=== PATIENT | female | born 1980 | race African-American/Black ===

== ENCOUNTER 2019-10-17 19:12 | Emergency (ER) | payer BC, SELFPAY ==
[2019-10-17] VITALS (24 sets, daily range): BP systolic 180–236; BP diastolic 90–132; PULSE 101–120; RESP 12–21; TEMP 36.2–36.6; O2SAT 95–100
--- NOTE | 2019-10-17 19:29 | PC.NURSE ---
Patient states my blood pressure is usually high, I take medicine for it daily, and my next dose is actually due soon. Patient also states my heart rate is also always above 100, its always a little fast.
--- NOTE | 2019-10-17 20:15 | ED.DENTAL ---
HPI - Dental/Oral General Chief complaint: Dental/Oral Stated complaint: tooth pain Time Seen by Provider: 10/17/19 19:33 Source: patient Mode of arrival: ambulatory Limitations: no limitations History of Present Illness HPI Narrative: This patient is a 39 year old female who presents with c/o right lower dental pain x 3 weeks. Patient describes severe pain constantly for 3 weeks. She has been trying orajel, aspirin, naproxen , tylenol without relief. She is unable to see a dentist. She has known hypertension and tachycardia. She has not taken her evening doses of metoprolol and clonidine. MD Complaint: tooth pain Location: Tooth # (32) Onset (ago): week(s) Duration: constant Severity scale (1-10): 10 Relieving factors: nothing Treatment prior to arrival: topical analgesic and oral analgesic Related Data Home Medications Medication Instructions Recorded Confirmed albuterol sulfate [Ventolin HFA] INHALATION 10/17/19 cholecalciferol (vitamin D3) 10/17/19 clonidine HCl 10/17/19 fluticasone propion-salmeterol INHALATION 10/17/19 [Advair Diskus] fluticasone propion-salmeterol INHALATION 10/17/19 [Advair Diskus] furosemide 10/17/19 hydroxyzine pamoate 10/17/19 insulin asp prt-insulin aspart SUBCUT 10/17/19 [Novolog Mix 70-30FlexPen U-100] montelukast mg 10/17/19 omeprazole 10/17/19 potassium chloride meq PO 10/17/19 Allergies Allergy/AdvReac Type Severity Reaction Status Date / Time ARCELIA Inhibitors Allergy Severe Other Verified 10/17/19 19:17 nebivolol Allergy Intermediate Other Verified 10/17/19 19:17 tramadol Allergy Mild Unknown Verified 10/17/19 19:17 sumatriptan Allergy Unknown Unknown Verified 10/17/19 19:17 Review of Systems Review of Systems: All systems reviewed & are unremarkable except as noted in HPI and below Constitutional: Constitutional: Denies chills, Denies fever(s) and Denies weakness ENT: Denies dysphagia, Denies dizziness, Denies nasal congestion and Denies sore throat Cardiovascular: Cardiovascular: Denies chest pain and Reports rapid heart rate Neurologic: Denies headache(s) and Denies focal weakness PMFSH Past Medical History Medical History (Updated 10/18/19 @ 00:00 by Braydon Hughes) Diabetes mellitus Hypertension Surgical History Surgical History (Updated 10/17/19 @ 20:17 by Alexa Knowles MD) H/O tubal ligation Social History Social History Gender identity (if verbalized by the patient): Female Exam Const: General: alert Orientation/consciousness: patient oriented x3 HENMT: Head: normocephalic and atraumatic Ears: hearing grossly normal bilaterally and TM's normal bilaterally Face and sinus: normal facial exam, sinuses nontender and face symmetric Mouth: Yes lip normal, Yes tongue normal, Yes oropharynx normal and Yes moist mucous membranes Teeth and gingiva: other (tenderness at tooth #32 with cavity, no surrounding gum swelling or redness) Cardio: Rhythm: regular rhythm Heart sounds: no murmurs Skin: General skin exam: normal color Rashes: no rashes Neuro: General: patient oriented x3 and moves all extremities Extrem: General: no pedal edema Course Reevaluation(s) Reevaluation #1: Patient has known uncontrolled HTN and tachycardia. BP is 180/90 . I Discussed with her she will need to follow up with dentist. Date: 10/17/19 Time: 23:17 Vital Signs Vital signs: Vital Signs Temperature 97.2 F L 10/17/19 19:14 Pulse Rate 120 H 10/17/19 19:14 Respiratory Rate 18 10/17/19 19:14 Blood Pressure 210/120 H 10/17/19 19:14 Pulse Oximetry 97 10/17/19 19:14 Temperature 97.9 F 10/17/19 23:30 Pulse Rate 101 H 10/17/19 23:30 Respiratory Rate 17 10/17/19 23:30 Blood Pressure 180/90 H 10/17/19 23:30 Pulse Oximetry 99 10/17/19 23:30 Discharge Plan Discharge Clinical Impression: Dental caries, Dentalgia, Hypertension Patient Disposition: Home, Self-Care Condition
[2019-10-17] MEDS: CLONIDINE HCL 0.1 MG TABLET 0.2 MG PO (20:17)
[2019-10-17] MEDS: ONDANSETRON HCL ODT 4 MG TABLET PO (20:17)
[2019-10-17] MEDS: HYDROMORPHONE HCL 1 MG/ML INJ IM (20:18)
[2019-10-17] MEDS: METOPROLOL TARTRATE 50 MG TAB 100 MG PO (21:22)
[2019-10-17] MEDS: AMOXICILLIN/CLAVULANATE K 875-125 MG TAB 1 TABLET PO (23:25)
== END 2019-10-17 23:32 | disposition home or self-care (01) ==
PROVIDERS: Emergency Provider General Practice; PCP Family Medicine
DX: K02.9 Dental caries, unspecified (principal); I10 Essential (primary) hypertension; E11.9 Type 2 diabetes mellitus without complications; Z79.4 Long term (current) use of insulin
CPT/HCPCS: 96372; 99283; A9270; J1170

== ENCOUNTER 2020-03-22 14:35 | Outpatient (CLI) | payer BC, SELFPAY ==
--- NOTE | 2020-03-28 10:56 | WPDPFTINT ---
PFT Interpretation PFT Interpretation: This PFT met all criteria for ATS standards and reproducibility FEV/FVC post bronchodilator 86% FEV1 89% FVC 81% TLC 99% RV 130% RV/TLC 42% DLCO 66% or 17.9 liters when adjusted for alveolar volume but not adjusted for hemoglobin Flow volume loops were normal Impression: No significant obstruction or restriction is present. Some air trapping and mildly decreased diffusion capacity. Clinical correlation is advised.
--- NOTE | 2020-03-28 11:00 | WPDSIXMINUTE ---
Six Minute Walk Six Minute Walk: The patients O2 sats started at 98% and dropped as low as 95% Total walk distance 365.76 meters conclusion: This patient does not qualify for home oxygen therapy.
== END 2020-03-22 14:36 | disposition home or self-care (01) ==
PROVIDERS: PCP Family Medicine; Visit Provider Internal Medicine Pulmonary Disease
DX: J45.909 Unspecified asthma, uncomplicated (principal)
CPT/HCPCS: 94060; 94618; 94726; 94729

== ENCOUNTER → 2023-03-15 11:54 | Outpatient (CLI) | payer BC, MEDICAID, SELFPAY ==
--- NOTE | ~2023-03-15 | CT_ITS ---
EXAMINATION: CT brain wo con DATE: 03/15/2023 12:13 INDICATION: Chronic headache. Change in vision. TECHNIQUE: Computed tomography (CT) of the head was performed without intravenous contrast. Sagittal and coronal reconstructions were performed. The mA was adjusted according to patient size. Iterative reconstruction technique was employed. The dose-length product was 599.57 mGy-cm. COMPARISON: head CT dated 12/12/2015 FINDINGS: No acute intracranial hemorrhage, acute infarction or abnormal extra axial fluid collection. Ventricl es are normal and symmetric. No mass/mass effect. The orbits, paranasal sinuses and mastoid air cells are normal. IMPRESSION: 1. Normal head CT. Reviewed, dictated and finalized at location A. IMPRESSION: 1. Normal head CT.
== END ==
DX: R51.9 Headache, unspecified (principal)
CPT/HCPCS: 70450

== ENCOUNTER → 2023-07-08 14:24 | Outpatient (CLI) | payer BC, MEDICAID, SELFPAY ==
--- NOTE | ~2023-07-08 | MM_ITS ---
EXAMINATION: MM screening elis BI w tommy HISTORY: Screening TECHNIQUE: Craniocaudal and mediolateral oblique 3-D tomosynthesis images were obtained and synthetic 2-D images were generated. CAD analysis was submitted and interpreted. COMPARISON: 10/02/2014 BREAST PARENCHYMAL COMPOSITION: There are scattered areas of fibroglandular density. FINDINGS: There is no evidence of suspicious mass, calcification, or architectural distortion to sugg est malignancy in either breast. There has been no suspicious interval change. IMPRESSION: 1. No mammographic evidence of malignancy. 2. Recommend routine screening mammography in one year. BI-RADS Category 1: Negative Reviewed, dictated and finalized at location A. OPERATOR
== END ==
PROVIDERS: PCP Obstetrics & Gynecology Gynecology; Visit Provider Obstetrics & Gynecology Gynecology
DX: Z12.31 Encounter for screening mammogram for malignant neoplasm of breast (principal)
CPT/HCPCS: 77063; 77067

== ENCOUNTER 2023-09-26 11:20 | Emergency (ER) | payer BC, MEDICAID, SELFPAY ==
[2023-09-26 11:39] VITALS: BP 231/113; PULSE 84; RESP 16; TEMP 36.7; O2SAT 100
[2023-09-26] MEDS: diphenhydrAMINE HCl CAP 25 MG CAPSULE 50 MG PO (12:27)
[2023-09-26] MEDS: HYDROcodone/acetaminophen (*CRX) 5-325 MG TABLET 1 TAB PO (12:27)
[2023-09-26] MEDS: predniSONE 20 MG TABLET 40 MG PO (12:27)
[2023-09-26 12:32] VITALS: BP 229/112; PULSE 86; RESP 20
[2023-09-26 12:37] VITALS: PULSE 122
[2023-09-26] MEDS: LABETALOL HCL 100 MG TABLET 200 MG PO (12:37)
[2023-09-26] MEDS: LOSARTAN POTASSIUM 100 MG TABLET PO (12:38)
[2023-09-26] MEDS: SPIRONOLACTONE 25 MG TABLET PO (12:38)
[2023-09-26 13:13] VITALS: BP 198/111
--- NOTE | 2023-09-26 13:38 | ED.ALLEREA ---
HPI - Allergic Reaction General Chief complaint: Allergic Reaction Stated complaint: allergic reation Time Seen by Provider: 09/26/23 12:06 History of Present Illness HPI narrative: Patient tried a flavored drink she has never tried before and then woke up noticed that her face was completely swollen, especially around her eyes, lips, tongue, she also felt like she was having difficulty swallowing. She had a cataract surgery to her right eye several weeks ago, and then was trying to eat a Twizzler but while pulling on it too hard it pulled back and hit her in the right eye and now she has pain and tearing to the right eye. Blurry vision from the tearing but when she dries her tears she has normal vision. no abdominal pain, nausea vomiting, no rash anywhere else. Related Data Home Medications Medication Instructions Recorded Confirmed albuterol sulfate 90 mcg/actuation inhalation 10/17/19 aerosol inhaler (Ventolin HFA) cholecalciferol (vitamin D3) 1,250 10/17/19 mcg (50,000 unit) capsule clonidine HCl 0.2 mg tablet 10/17/19 fluticasone 100 mcg-salmeterol 50 inhalation 10/17/19 mcg/dose blistr powdr for inhalation (Advair Diskus) fluticasone 250 mcg-salmeterol 50 inhalation 10/17/19 mcg/dose blistr powdr for inhalation (Advair Diskus) furosemide 40 mg tablet 10/17/19 hydroxyzine pamoate 25 mg capsule 10/17/19 insulin aspar prot-insulin aspart subcut 10/17/19 100 unit/mL (70-30) subcutaneous pen (Novolog Mix 70-30FlexPen U-100) montelukast 10 mg tablet mg 10/17/19 omeprazole 40 mg capsule,delayed 10/17/19 release potassium chloride 20 mEq meq PO 10/17/19 tablet,extended release(part/cryst) Allergies Allergy/AdvReac Type Severity Reaction Status Date / Time ARCELIA Inhibitors Allergy Severe Other Verified 10/17/19 19:17 nebivolol Allergy Intermediate Other Verified 10/17/19 19:17 tramadol Allergy Mild Unknown Verified 10/17/19 19:17 sumatriptan Allergy Unknown Unknown Verified 10/17/19 19:17 Review of Systems Review of Systems: All systems reviewed & are unremarkable except as noted in HPI and below PMFSH Past Medical History Medical History (Updated 09/26/23 @ 13:34 by Rachelle Moody MD) Diabetes mellitus Hypertension Surgical History Surgical History (Updated 10/17/19 @ 20:17 by Alexa Knowles MD) H/O tubal ligation Social History Social History Gender identity (if verbalized by the patient): Female Exam Narrative: EXAMINATION OF ORGAN SYSTEMS/BODY AREAS: Constitutional: Vital signs per nursing GENERAL:[No acute distress, non-toxic appearing.] HEAD: Normal with no signs of head trauma. EYES: injected right eye, tearing, visual acuity intact bilaterally ENT: Some slight swelling around eyes, face, lips; no swelling of tongue. Normal voice. LUNGS: Nonlabored breathing. HEART: [Regular rate and rhythm] ABD: [Soft], [nontender to palpation] EXT: Normal range of motion SKIN: [No rashes or lesions.] NEURO: [Alert and oriented x 3. No gross focal sensory or strength deficits.] PSYCH: Normal affect Course Vital Signs Vital signs: Vital Signs Temperature 98.0 F 09/26/23 11:39 Pulse Rate 84 09/26/23 11:39 Respiratory Rate 16 09/26/23 11:39 Blood Pressure 231/113 H 09/26/23 11:39 Pulse Oximetry 100 09/26/23 11:39 Oxygen Delivery Room Air 09/26/23 11:39 Temperature 98.0 F 09/26/23 11:39 Pulse Rate 77 09/26/23 13:39 Respiratory Rate 20 09/26/23 13:39 Blood Pressure 166/107 H 09/26/23 13:39 Pulse Oximetry 98 09/26/23 13:39 Oxygen Delivery Room Air 09/26/23 13:10 MDM - Allergic Reaction MDM Narrative Medical decision making narrative: patient presents with concern for some swelling of her face, and she did also hit herself in the right eye last night with a Twizzler. I was initially concerned for possible complications with the surgery however after patient but to 2 years away she n
[2023-09-26 13:39] VITALS: BP 166/107; PULSE 77; RESP 20; O2SAT 98
== END 2023-09-26 13:46 | disposition home or self-care (01) ==
PROVIDERS: Emergency Provider Emergency Medicine; PCP Internal Medicine
DX: T78.40XA Allergy, unspecified, initial encounter (principal); R22.0 Localized swelling, mass and lump, head; S05.01XA Injury of conjunctiva and corneal abrasion without foreign body, right eye, initial encounter; I10 Essential (primary) hypertension; E11.9 Type 2 diabetes mellitus without complications; Z79.4 Long term (current) use of insulin; X58.XXXA Exposure to other specified factors, initial encounter
CPT/HCPCS: 99283; A9270; J7512

== ENCOUNTER 2023-10-26 13:15 | Outpatient (CLI) | payer BC, MEDICAID, SELFPAY ==
--- NOTE | ~2023-10-26 | CT_ITS ---
EXAMINATION: CT brain wo con DATE: 10/26/2023 13:31 INDICATION: Chronic headache TECHNIQUE: Computed tomography (CT) of the head was performed without intravenous contrast. The mA wa s adjusted according to patient size. Iterative reconstruction technique was employed. Exam dose: 59 9.57 mGy-cm total exam DLP. COMPARISON: 03/15/2023 CT brain, reported normal FINDINGS: No intracranial mass lesion or hemorrhage or cerebrovascular accident, midline shift or mas s effect. Normal ventricular size. No subdural or epidural hematoma. The mastoid air cells and included paranasal sinuses are normally developed and aerated. No fracture or bone destruction of the cranial vault. IMPRESSION: Negative examination Reviewed, dictated and finalized at Location A. Reviewed, dictated and finalized at location B. IMPRESSION: Negative examination
== END 2023-10-26 13:16 ==
PROVIDERS: PCP Internal Medicine; Visit Provider Internal Medicine
DX: G44.89 Other headache syndrome (principal)
CPT/HCPCS: 70450

== ENCOUNTER 2024-04-25 14:46 | Outpatient (CLI) | payer BC, SELFPAY ==
--- NOTE | ~2024-04-25 | US_ITS ---
EXAMINATION: US soft tissue LE DATE: 04/25/2024 15:03 INDICATION: Left lower limb mass. TECHNIQUE: Multiple grayscale and Doppler ultrasound images of the left lower limb were obtained. COMPARISON: None FINDINGS: There is a 3.6 x 0.7 x 4.3 cm subcutaneous mass in the left anterior thigh with echotexture and echogenicity similar to normal subcutaneous fat, consistent with a lipoma. IMPRESSION: 1. 4.3 cm lipoma in left anterior thigh. Reviewed, dictated and finalized at location A. STIAN COUNSELOR
--- NOTE | ~2024-04-25 | XR_ITS ---
EXAMINATION: XR femur LT min 2V DATE: 04/25/2024 15:11 INDICATION: Left thigh pain. TECHNIQUE: 2 views of left femur on 4 radiographs were obtained. COMPARISON: Left knee radiographs 10/18/15 FINDINGS: Alignment is normal. No fracture. There is mild left hip osteoarthritis. There is mild tric ompartmental osteoarthritis of left knee. No knee joint effusion. IMPRESSION: 1. Mild polyarticular osteoarthritis. Reviewed, dictated and finalized at location A. TRICAL TIMING DEVICE CALIBRATOR
== END 2024-04-25 14:47 | disposition home or self-care (01) ==
PROVIDERS: PCP Internal Medicine; Visit Provider Internal Medicine
DX: D17.24 Benign lipomatous neoplasm of skin and subcutaneous tissue of left leg (principal); R22.42 Localized swelling, mass and lump, left lower limb
CPT/HCPCS: 73552; 76882

== ENCOUNTER 2024-06-28 14:33 | Outpatient (CLI) | payer BC, SELFPAY ==
--- NOTE | ~2024-06-28 | XR_ITS ---
CHEST RADIOGRAPH, PA AND LATERAL CLINICAL HISTORY: Preop testing . COMPARISON: 10/19/2018 TECHNIQUE: PA and lateral views of the chest. FINDINGS The cardiomediastinal silhouette is unremarkable. The lungs are clear. Visualized osseous structures and soft tissues are unremarkable. IMPRESSION: No focal infiltrate or effusion. Reviewed, dictated and finalized at location A. IRATORY DIRECTOR
[2024-06-28 15:20] LABS: Basophils Percent Auto 0.7 % (0.2-1.2); Eosinophils Absolute Auto 0.2 K/mm3 (0-0.3); Eosinophils Percent Auto 5.1 % (0-4.4); Hematocrit 39.5 % (37.0-47.0); Hemoglobin 12.9 g/dL (12.0-15.0); Lymphocytes Absolute Auto 1.79 K/mm3 (0.9-3.2); Lymphocytes Percent Auto 43.6 % (18.3-44.2); Mean Corpuscular HGB Conc 32.7 g/dl (32-36); Mean Corpuscular Hemoglobin 28.7 pg (26-34); Mean Platelet Volume 9.6 fl (7.4-10.4); Monocytes Absolute Auto 0.4 K/mm3 (0.1-0.6); Monocytes Percent Auto 8.8 % (2.6-8.5); Neutrophils Absolute Auto 1.7 K/mm3 (1.3-6.7); Neutrophils Percent Auto 41.8 % (45.5-73.1); Platelet Count Result 241 k/mm3 (150-375); Red Blood Count 4.49 M/mm3 (4.2-5.4); White Blood Count 4.1 K/mm3 (4.5-10.0)
[2024-06-28 15:32] LABS: Alanine Aminotransferase 21 U/L (6-35); Albumin Level 3.7 g/dL (3.5-5.1); Alkaline Phosphatase 108 U/L (38-126); Anion Gap 7 mmol/L (4-12); Aspartate Amino Transferase 24 U/L (14-36); Bilirubin,Total 0.4 mg/dL (0.2-1.3); Blood Urea Nitrogen 17 mg/dL (7-17); Calcium 8.5 mg/dL (8.4-10.2); Carbon Dioxide 27 mmol/L (22-30); Chloride 102 mmol/L (98-107); Estimated Glomerular Filt Rate > 60; Glucose 129 mg/dL (65-110); Potassium 4.1 mmol/L (3.4-5.0); Sodium 136 mmol/L (137-145)
[2024-06-28 15:33] LABS: Prothrombin Time 13.3 Seconds (11.1-14.7)
--- OUTSIDE RECORDS SUMMARY | 2024-06-30 02:28 | XMS_ITS | Clinical Summary ---
Author Organization [facility] Address [address] [place] [address] Care Team Providers Care Permit Technician Name Role Phone Maura Zuñiga DO Primary Care Provider [phone] Source Comments [facility],non-owned Affiliates and Associated Physician Practices is amultiple site organization consisting of ambulatory clinics and hospital sitesin [place], [place], [place] and [place]. This disclosure is being madepursuant to the Care Everywhere program and may not contain all information available regarding this patient. Last updated 18.[facility] Allergies Active Allergy Reactions Criticality Noted Date Comments Sumatriptan Other 10/26/2009 Hallucinations Tramadol Hcl Psychiatric 10/26/2009 Pt. Feels like she is hallucinating. Medications * Be aware that medications may not be up to date on this document. Alwaysverify current medications with the patient. Medication Sig Dispensed Refills Start Date End Date Status rx 1 60-1 MG tablet Take 1 Tab by mouth daily. Active buPROPion SR 12hr (WELLBUTRIN SR) 200 MG tablet Take 200 mg by mouth daily after breakfast. Active escitalopram (LEXAPRO) 20 MG tablet Take 20 mg by mouth daily. Active oxycodone-acetam inophen (PERCOCET) 5-325 MG tablet Take 1-2 Tabs by mouth every 4 hours as needed for Pain. 45 0 10/29/2009 Active insulin aspart (NOVOLOG) injection Inject 10 Units subcutaneously daily before breakfast. one month supply 1 10/29/2009 Active insulin aspart (NOVOLOG) injection Inject 8 Units subcutaneously daily before dinner. one month supply 1 10/29/2009 Active insulin NPH (HUMULIN N; NOVOLIN N) injection Inject 12 Units subcutaneously at bedtime. one month supply 0 10/29/2009 Active insulin NPH (HUMULIN N; NOVOLIN N) injection Inject 18 Units subcutaneously daily before breakfast. one month supply 1 10/29/2009 Active labetalol (NORMODYNE; TRANDATE) 200 MG tablet Take 2 Tabs by mouth every 8 hours. one month supply 1 10/29/2009 Active NIFEdipine CR 24hr (ADALAT CC) 60 MG tablet Take 1 Tab by mouth every 12 hours. Take on an empty stomach. 60 1 10/29/2009 Active ibuprofen (MOTRIN) 600 MG tablet Take 1 Tab by mouth every 6 hours as needed for Pain. cramping 60 1 10/29/2009 Active docusate sodium (COLACE) 100 MG capsule Take 1 Cap by mouth 2 times daily as needed for Constipation. 60 1 10/29/2009 Active Active Problems Problem Noted Date Diagnosed Date History of section 10/26/2009 Morbid obesity 10/26/2009 Migraines 10/26/2009 History of delivery, currently 10/26/2009 History of pre-eclampsia in prior , currently 10/26/2009 Hypertension complicating Diabetes mellitus Asthma Anxiety in , antepartum Immunizations Name Administration Dates Next Due TDAP (7yrs+) 10/29/2009 Family History Medical History Relation Name Comments Migraine Father Cancer Maternal Grandmother Hypertension Mother Migraine Mother Asthma Other Heart Failure Paternal Aunt Heart Failure Paternal Grandmother Asthma Sister Hypertension Sister Migraine Sister Relation Name Status Comments Father Maternal Grandmother Mother Other Paternal Aunt Paternal Grandmother Sister Social History Tobacco Use Types Packs/Day Years Used Date Smoking Tobacco: Former Cigarettes Comments:smoked 2 cigs/day Alcohol Use Standard Drinks/Week Comments No 0 (1 standard drink = 0.6 oz pure alcohol) quit when found out about Sex and Gender Information Value Date Recorded Sex Assigned at Not on file Gender Identity Not on file Sexual Orientation Not on file Last Filed Vital Signs Vital Sign Reading Time Taken Comments Blood Pressure 160/97 11/01/2009 2:30 PM CDT Pulse 102 11/01/2009 2:30 PM CDT Temperature 36.6 ??C (97.8 ??F) 10/29/2009 8:00 AM CD T Respiratory Rate 20 11/01/2009 2:30 PM CDT Oxygen Saturation 97% 10/26/2009 12:16 PM CDT Inhaled Oxygen Concentration - - Weight 129.7 kg (286 lb) 11/01/2009 2:30 PM CDT Height 167.6 cm (5' 6 ) 11/01/2009 2:30 PM CDT Body Mass Index 46.16 11/01/2009 2:30 PM CDT Plan of Treatment Health Maintenance Due Date Last Done Comments LIPID TESTING 1979 MAMMOGRAM 1979 PAP SMEAR 1979 HIV SCREENING 1994 HEPATITIS C SCREENING 07/01/1997 HEPATITIS B VACCINE (1 of 3 - 19+ 3-dose series) 1998 PNEUMOCOCCAL VACCINE (1 of 2 - PCV) 1998 DTAP/TDAP/TD VACCINES (2 - T d or Tdap) 10/30/2019 10/29/2009 COVID-19 VACCINE ( - 2023-2 5 season) 2024 INFLUENZA VACCINE (#1) 2024 DEPRESSION SCREENING 06/07/2024 ZOSTER VACCINE (1 of 2) 2029 HIB VACCINE Aged Out No longer eligi ble based on patient's age to complete this topic HPV VACCINE Aged Out No longer eligi ble based on patient's age to complete this topic MENINGOCOCCAL (Group B) VACCINE Aged Out No longer eligible based on patient's age to complete this topic MENINGOCOCCAL VACCINE Aged Out No germaine aretha eligible based on patient's age to complete this topic Advance Directives * Full Code (Latest Code Status on File) Date Activated Date Inactivated Comments 10/26/2009 4:25 AM 10/30/2009 1:38 AM Care Teams Permit Technician Relationship Specialty Start Date End Date Maura Zuñiga DO [address] [facility] [place] [address] PCP - General 11/01/09
--- OUTSIDE RECORDS SUMMARY | 2024-06-30 02:28 | XMS_ITS | Referral Summary ---
Author Organization [facility] Address [address] [place] [address] Care Team Providers Care Official Court Reporter Name Role Phone Maura Zuñiga DO Primary Care Provider [phone] Source Comments [facility],non-owned Affiliates and Associated Physician Practices is amultiple site organization consisting of ambulatory clinics and hospital sitesin [place], [place], [place] and [place]. This disclosure is being madepursuant to the Care Everywhere program and may not contain all information available regarding this patient. Last updated 18.[facility] Allergies Active Allergy Reactions Criticality Noted Date [...] Administration Dates Next Due TDAP (7yrs+) 10/29/2009 Social History Tobacco Use Types Packs/Day Years [...] 11/01/2009 2:30 PM CDT Plan of Treatment Not on file Advance Directives * Full Code (Latest Code Status on File) Date Activated Date Inactivated Comments 10/26/2009 4:25 AM 10/30/2009 1:[address] Reporter Relationship Specialty Start Date End Date Maura Zuñiga DO [address] [place] [address] PCP - General 11/01/09
--- OUTSIDE RECORDS SUMMARY | 2024-06-30 02:29 | XMS_ITS | Clinical Summary ---
Author Organization [facility] Address [address] [address] Care Team Providers Care Mechanical Designer Name Role Phone Jayne Llanos MD Primary Care Provider [phone] Social History Tobacco Use Types Packs/Day Years Used Date Smoking Tobacco: Never Assessed Comments Unknown Sex and Gender Information Value Date Recorded Sex Assigned at Not on file Legal Sex Female 2:51 PM EDT Gender Identity Not on file Sexual Orientation Not on file Plan of Treatment Health Maintenance Due Date Last Done Comments Pneumococcal Vaccine: Pediat rics (0 to 5 Years) and At-Risk Patients (6 to 64 Years) (1 of 2 - PCV) 1985 Hepatitis B Vaccine (1 of 3 - 19+ 3-dose series) 1998 Diabetes: Hemoglobin A1C 06/05/2021 Diabetes: Ophthalmology Exam 06/05/2021 Diabetes: Pedal Pulse Checked 06/05/2021 Diabetes: Sensory Foot Exam 06/05/2021 Diabetes: Visual Foot Exam 06/05/2021 Influenza Vaccine (#1) 2024 03/26/2021, 2018 Insurance [facility] Care Teams Mechanical Designer Relationship Specialty Start Date End Date Jayne Llanos MD [address] [place] [address] PCP - General Endocrinology 08/04/21
--- OUTSIDE RECORDS SUMMARY | 2024-06-30 02:29 | XMS_ITS | Clinical Summary ---
Author Organization [facility] Address [facility] [facility] [place] [address] [place] [address] Care Team Providers Care Health Services Director Name Role Phone Simón Mcdonough MD Primary Care Provider + [phone] Allergies Active Allergy Reactions Criticality Noted Date Comments Balta Inhibitors Angioedema High 12/19/2020 Irbesartan Shortness of Breath High 12/19/2020 Chest pain Nebivolol Other (see comment) 12/19/2020 Hair loss Sumatriptan Hallucinations,Other (see comment) Low 10/26/2009 Hallucinations Tramadol Hallucinations Low 10/26/2009 Pt. Feels like she is hallucinating. Medications ALPRAZolam (XANAX) 0.5 MG tablet Take 1 tablet (0.5 mg total) by mouth 2 (two) times daily as needed for Anxiety. Active DULoxetine (CYMBALTA) 60 MG capsule Take 1 capsule (60 mg total) by mouth daily. Active FLUoxetine (PROZAC) 20 MG capsule Take 1 capsule (20 mg total) by mouth daily. Total dose = 60 mg daily Active FLUoxetine (PROZAC) 40 MG capsule Take 1 capsule (40 mg total) by mouth daily. Total dose = 60 mg daily Active losartan-hydro CHLOROthiazide (HYZAAR) 100-25 MG tablet Take 1 tablet by mouth daily. Active NIFEdipine ER (ADALAT CC) 60 MG 24 hr tablet Take 1 tablet (60 mg total) by mouth nightly at bedtime. Activ e spironolactone (ALDACTONE) 25 MG tablet Take 1 tablet (25 mg total) by mouth daily. Active labetalol (NORMODYNE) 200 MG tablet Take 1 tablet (200 mg total) by mouth 2 (two) times daily. Active VENTOLIN HFA 108 (90 Base) MCG/ACT inhaler Inhale 2 puffs into the lungs every 4 (four) hours as needed for Shortness of breath. Active ALPRAZolam (XANAX) 1 MG tablet Take 1 tablet (1 mg total) by mouth 2 (two) times a day. Active empagliflozin (JARDIANCE) 25 MG tablet Take 1 tablet (25 mg total) by mouth daily. Active aspirin EC (ECOTRIN) 81 MG tablet Take 1 tablet (81 mg total) by mouth daily. Active hydrOXYzine (ATARAX) 25 MG tablet Take 1 tablet (25 mg total) by mouth every 6 (six) hours as needed (hives). Active vitamin D2, ergocalciferol , (DRISDOL) 1.25 mg capsule Take 1 capsule (1.25 mg total) by mouth every 7 days. On Wednesdays Active atorvastatin (LIPITOR) 80 MG tablet Take 1 tablet (80 mg total) by mouth nightly at bedtime. 30 tablet 2 07/16/19 24 Active lidocaine 4 % patch Place 1 patch onto the skin daily. Remove & Discard patch within 12 hours or as directed by 30 patch 07/16/19 24 Active MOBIC 15 MG tablet Take 1 tablet (15 mg total) by mouth daily. 02/17/20 24 Active traMADol (ULTRAM) 50 MG tablet TAKE 1 TABLET BY MOUTH EVERY 4 TO 6 HOURS NEEDED. TAKE AT HOME FIRST BEFORE DRIVING ON 7 . 03/15/20 24 Active gabapentin (NEURONTIN) 100 MG capsule Take 1 capsule (100 mg total) by mouth 2 (two) times a day. 03/30/20 24 Active BASAGLAR KWIKPEN 100 UNIT/ML injection (PEN) Inject into the skin nightly at bedtime. 02/25/20 24 Active insulin lispro, 1 Unit Dial, (HUMALOG) 100 UNIT/ML injection (PEN) INJECT 15 UNITS SUBCUTANEOUSLY THREE TIMES DAILY 02/29/20 24 Active EPINEPHrine 0.3 MG/0.3ML injection INJECT 0.3MG INTRAMUSCULARLY EVERY 5 TO 15 MINUTES NEEDED FOR ANAPHYLAXIS; DO NOT EXCEED 3 DOSES PER EPISODE. 09/26/19 24 Active dorzolamide (TRUSOPT) 2 % ophthalmic solution instill 1 drop into right eye twice daily 12/19/19 24 Active cyclobenzaprin e (FLEXERIL) 10 MG tablet Take 1 tablet (10 mg total) by mouth 2 (two) times daily as needed for Muscle Spasms. 02/17/20 Active Active Problems Problem Noted Date Diagnosed Date Neuropathy 03/30/2024 Diabetes mellitus ([facility]) 10/20/2023 Hypertension complicating ([facility]) TIA (transient ischemic attack) 07/19/2023 Hypertension 07/19/2023 Hypertensive urgency 07/15/2023 Anxiety and depression 11/24/2021 Morbid obesity with body mas s index of 40.0-49.9 ([facility]) 11/24/2021 TANNA (obstructive sleep apnea) 11/24/2021 Other hyperlipidemia 11/24/2021 Resolved Problems Problem Noted Date Diagnosed Date Resolved Date CVA (cerebral vascular accid ent) ([facility]) 07/14/2023 07/15/2023 Encounters Date Type Department Care Team Description 04/03/2024 10:00 AM CDT Office Visit [facility] on [address] [address] Cyndi Bearden MD Follow Up (3 month ) 04/03/2024 Travel 04/03/2024 Orders Only [facility] [address] [address] [place] CMA from Last 3 Months Immunizations Name Administration Dates Next Due Influenza Adult (Generic) 03/27/2023,03/26/2021 Tdap (Generic) 10/29/2009 Family History Medical History Relation Comments Hypertension Mother Transient ischemic attack Mother Hypertension Sister Relation Status Comments Mother Alive Sister Alive Social History Tobacco Use Types Packs/Day Years Used Date Smoking Tobacco: Former Cigarettes Q uit: 07/14/2023 Smokeless Tobacco: Never Comments:Was smoking 2-3 cig arettes daily Alcohol Use Standard Drinks/Week Comments Never 0 (1 standard drink = 0.6 oz pur e alcohol) [facility] Utilities Answer Date Recorded In the past 12 months has [employer], gas, oil, or water company threatened to shut off services in your home? No 07/15/2023 Humiliation, Afraid, Rape, and Kick questionnair e Answer Date Recorded Within the last year, have y ou been afraid of your partner or ex-partner? No 07/15/2023 Within the last year, have y ou been humiliated or emotionally abused in other ways by your partner or ex-partner? No Within the last year, have y ou been kicked, hit, slapped, or otherwise physically hurt by your partner or ex-partner? No 07/15/2023 Within the last year, have y ou been raped or forced to have any kind of sexual activity by your partner or ex-partner? No 07/15/2023 Social Connection and Isolat ion Panel [NHANES] Answer Date Recorded In a typical week, how many times do you talk on the phone with family, friends, or neighbors? More than three times a week 07/15/2023 How often do you get togethe r with friends or relatives? More than three times a week 07/15/2023 How often do you attend [facility] or restorationist services? More than 4 times per year 07/15/2023 Do you belong to any clubs o r organizations such as jainism groups, unions, fraternal or athletic groups, or school groups? No 07/15/2023 How often do you attend meet ings of the clubs or organizations you belong to? Never 07/15/2023 Are you , , di vorced, , never , or living with a partner? Living with partner 07/15/2023 AUDIT-C Answer Date Recorded Q1: How often do you have a drink containing alc ohol? Monthly or less 07/15/2023 Q2: How many drinks containi ng alcohol do you have on a typical day when you are drinking? 1 or 2 07/15/2023 Q3: How often do you have si x or more drinks on one occasion? Never 07/15/2023 Overall Financial Resource Strain (CARDIA) Answe r Date Recorded How hard is it for you to pa y for the very basics like food, housing, medical care, and heating? Not very hard 07/15/2023 PHQ-2 Answer Date Recorded Patient Health Questionnaire-2 Score 0 07/15/2023 [facility] - Occupational Stress Questionnaire Answer Date Recorded Do you feel stress - tense, restless, nervous, or anxious, or unable to sleep at night because your mind is troubled all the time - these days? Not at all 07/15/2023 Exercise Vital Sign Answer Date Recorde d On average, how many days pe r week do you engage in moderate to strenuous exercise (like a brisk walk)? 4 days 07/15/2023 On average, how many minutes do you engage in exercise at this level? 30 min 07/15/2023 Hunger Vital Sign Answer Date Recorded Within the past 12 months, y ou worried that your food would run out before you got the money to buy more. Never true 07/15/19 24 Within the past 12 months, t he food you bought just didn't last and you didn't have money to get more. Never true 07/15/2023 PRAPARE - Transportation Answer Date Re corded In the past 12 months, has l ack of transportation kept you from medical appointments or from getting medications? No 01/2024 In the past 12 months, has l ack of transportation kept you from meetings, work, or from getting things needed for daily living? No 07/15/2023 Housing Stability Vital Sign Answer Naveen e Recorded In the last 12 months, was t here a time when you were not able to pay the mortgage or rent on time? No 07/15/2023 In the last 12 months, how many places have you lived? 1 07/15/2023 In the last 12 months, was t here a time when you did not have a steady place to sleep or slept in a alf (including now)? No 07/15/2023 Comments Unknown Sex and Gender Information Value Date Recorded Sex Assigned at Not on file Legal Sex Female 4:52 PM CDT Gender Identity Not on file Sexual Orientation Not on file Last Filed Vital Signs Vital Sign Reading Time Taken Comments Blood Pressure 98/68 04/03/2024 10:03 AM CDT Pulse 75 04/03/2024 10:03 AM CDT Temperature 36.3 ??C (97.3 ??F) 07/16/2023 5:40 AM CS T Respiratory Rate 16 07/16/2023 8:35 AM PATENT PARALEGAL Oxygen Saturation 97% 04/03/2024 10:03 AM CDT Inhaled Oxygen Concentration - - Weight 102.1 kg (225 lb) 04/03/2024 10:03 AM CDT Height 167.6 cm (5' 6 ) 04/03/2024 10:03 AM CDT Body Mass Index 36.32 04/03/2024 10:03 AM CDT Plan of Treatment Upcoming Encounters Date Type Department Care Team (Late st Contact Info) Description 10/02/2024 10:30 AM CDT Office Visit [facility] [address] [place] [address] Cyndi Bearden MD [facility] [address] [place], [place] [id number] Health Maintenance Due Date Last Done Comments Cervical Cancer Screening Pa p Smear (Age 30 to 64) Every 3 Years 1979 Kidney Health Evaluation 1979 Annual Physical 1982 Pneumococcal Vaccine: Pediatrics (0 to 5 Years) and At-Risk Patients (6 to 64 Years) (1 of 2 - PCV) 1985 Diabetes: Retinopathy Eye Exam 1997 Hepatitis C 1997 Hepatitis B Vaccines (1 of 3 - 19+ 3-dose series) 1998 Cervical Cancer Screening Pa p with HPV Testing (Age 30 to 64) Every 5 Years 2009 Cervical Cancer Screening wi th HPV 2009 Mammogram Screening 2019 DTaP, Tdap and Td Vaccines ( 2 - Td or Tdap) 10/30/2019 10/29/2009 COVID-19 Vaccine (2023-2 5 season) 2024 05/15/2021, 09/10/2020 Influenza Adult (#1) 2024 03/27/2023, 03/26/2021 Hemoglobin A1C 05/25/2024 02/24/2024, 07/14/2023 Lipid Panel 02/23/2025 02/24/2024, 07/14/2023 HPV Vaccines Aged Out No longer eligi ble based on patient's age to complete this topic Meningococcal Vaccine Aged Out No germaine aretha eligible based on patient's age to complete this topic RSV Immunizations Under 20 Months Aged Out No longer eligible b ased on patient's age to complete this topic Goals Goal Patient Goal Type Associated Problems Recent Progress Patient-Stated? Author Patient will return to prior living situation and remain independent in ADLs upon discharge from hospital Lifestyle Jayla Allen, [employer] Procedures Procedure Name Priority Date/Time Associated Diagnosis Comments LIPID PANEL Routine 02/24/2024 HEMOGLOBIN, GLYCOSYLATED Routine 02/24/2024 from Last 3 Months or Most Recently Relevant to Health Maintenance Results * HEMOGLOBIN, GLYCOSYLATED (02/24/2024) HGB A1C 11.5 % us Default History Genericprovider LABORATORY Final Result * LIPID PANEL (02/24/2024) CHOLESTEROL 161 TRIGLYCERIDES 80 HDL 72 LDL (CALCULATED) 73 NON HDL CHOLESTEROL 89 us Default History Genericprovider LABORATORY Final Result from Last 3 Months or Most Recently Relevant to Health Maintenance Insurance Advance Directives * Full Code (Latest Code Status on File) Date Activated Date Inactivated Comments 07/14/2023 10:44 PM 07/16/2023 1:11 PM Care Teams Health Services Director Relationship Specialty Start Date End Date Simón Mcdonough MD [facility] - General 11/15/14
--- OUTSIDE RECORDS SUMMARY | 2024-06-30 02:29 | XMS_ITS | Patient Health Summary ---
Author Organization [facility] Address [address] [place] [address] Care Team Providers Care Production Line Worker Name Role Phone Maura uZñiga DO Primary Care Provider [phone] Note from [facility],non-owned Affiliates and Associated Physician Practices is amultiple site organization consisting of ambulatory clinics and hospital sitesin [place], [place], [place] and [place]. This disclosure is being madepursuant to the Care Everywhere program and may not contain all information available regarding this patient. Last updated 18.[facility] Allergies * Sumatriptan(Other) * Tramadol Hcl(Psychiatric) Medications * Be aware that medications may not be up to date on this document. Alwaysverify current medications with the patient. * rx 1 60-1 MG tablet Take 1 Tab by mouth daily. * buPROPion SR 12hr (WELLBUTRIN SR) 200 MG tablet Take 200 mg by mouth daily after breakfast. * escitalopram (LEXAPRO) 20 MG tablet Take 20 mg by mouth daily. * oxycodone-acetaminophen (PERCOCET) 5-325 MG tablet(Started 10/29/2009) Take 1-2 Tabs by mouth every 4 hours as needed for Pain. * insulin aspart (NOVOLOG) injection(Started 10/29/2009) Inject 10 Units subcutaneously daily before breakfast. 1 refill left * insulin aspart (NOVOLOG) injection(Started 10/29/2009) Inject 8 Units subcutaneously daily before dinner. 1 refill left * insulin NPH (HUMULIN N; NOVOLIN N) injection(Started 10/29/2009) Inject 12 Units subcutaneously at bedtime. * insulin NPH (HUMULIN N; NOVOLIN N) injection(Started 10/29/2009) Inject 18 Units subcutaneously daily before breakfast. 1 refill left * labetalol (NORMODYNE; TRANDATE) 200 MG tablet(Started 10/29/2009) Take 2 Tabs by mouth every 8 hours. 1 refill left * NIFEdipine CR 24hr (ADALAT CC) 60 MG tablet(Started 10/29/2009) Take 1 Tab by mouth every 12 hours. Take on an empty stomach. 1 refill left * ibuprofen (MOTRIN) 600 MG tablet(Started 10/29/2009) Take 1 Tab by mouth every 6 hours as needed for Pain. cramping 1 refill left * docusate sodium (COLACE) 100 MG capsule(Started 10/29/2009) Take 1 Cap by mouth 2 times daily as needed for Constipation. 1 refill left Active Problems Problem Noted Date Diagnosed Date History of section 10/26/2009 Morbid obesity 10/26/2009 Migraines 10/26/2009 History of delivery, currently 10/26/2009 History of pre-eclampsia in prior , currently 10/26/2009 Hypertension complicating Diabetes mellitus Asthma Anxiety in , antepartum Immunizations * TDAP (7yrs+)(Given 10/29/2009) Social History Tobacco Use Types Packs/Day Years [...] Mass Index 46.16 11/01/2009 2:30 PM CDT Procedures * CULTURE URINE(Performed 10/12/2013) * LAB RESULTS ORDER(Performed 11/01/2009) * IMAGING/RADIOLOGY/XRAY RESULTS ORDER(Performed 11/01/2009) * URINALYSIS REFLEX TO MICROSCOPIC NO CULTURE(Performed 11/01/2009) Performed for Rout Postpart Follow-Up * CULTURE URINE(Performed 11/01/2009) Performed for Rout Postpart Follow-Up * COMPREHENSIVE METABOLIC PANEL(Performed 11/01/2009) Performed for Rout Postpart Follow-Up * CBC W AUTO DIFFERENTIAL(Performed 11/01/2009) Performed for Rout Postpart Follow-Up * GLUCOSE - POINT OF CARE(Performed 11/01/2009) Performed for Rout Postpart Follow-Up * IMAGING/RADIOLOGY/XRAY RESULTS ORDER(Performed 10/29/2009) * CBC W AUTO DIFFERENTIAL(Performed 10/27/2009) Performed for Unspecified High-Risk (HCC) * BLOOD GASES CORD MALIKA(Performed 10/26/2009) Performed for Unspecified High-Risk (HCC) * BLOOD GASES CORD ARTERIAL(Performed 10/26/2009) Performed for Unspecified High-Risk (HCC) * BLOOD GASES CORD MALIKA(Performed 10/26/2009) Performed for Unspecified High-Risk (HCC) * BLOOD GASES CORD ARTERIAL(Performed 10/26/2009) Performed for Unspecified High-Risk (HCC) * GROSS + MICRO EXAM(Performed 10/26/2009) * GROSS + MICRO EXAM(Performed 10/26/2009) Performed for Unspecified High-Risk (HCC) * BLOOD TYPE VERIFICATION(Performed 10/26/2009) Performed for Unspecified High-Risk (HCC) * TYPE + SCREEN PANEL(Performed 10/26/2009) Performed for Unspecified High-Risk (HCC) * URIC ACID BLOOD(Performed 10/26/2009) Performed for Unspecified High-Risk (HCC) * LDH BLOOD(Performed 10/26/2009) Performed for Unspecified High-Risk (HCC) * COMPREHENSIVE METABOLIC PANEL(Performed 10/26/2009) Performed for Unspecified High-Risk (HCC) * CBC W AUTO DIFFERENTIAL(Performed 10/26/2009) Performed for Unspecified High-Risk (HCC) * DRUG SCREEN URINE TRIAGE PANEL(Performed 10/26/2009) Performed for Unspecified High-Risk (HCC) * URINALYSIS REFLEX TO MICROSCOPIC NO CULTURE(Performed 10/26/2009) Performed for Unspecified High-Risk (HCC) * URINALYSIS OBSTETRICS - POINT OF CARE(Performed 10/26/2009) * IMAGING/RADIOLOGY/XRAY RESULTS ORDER(Performed 10/18/2009) * SONOGRAM - COMPLETE(Performed 10/10/2009) * IMAGING/RADIOLOGY/XRAY RESULTS ORDER(Performed 10/03/2009) * SONOGRAM - COMPLETE(Performed 09/12/2009) Performed for Twins, Check Growth, Antepartum Ultrasound Results * CULTURE URINE (10/12/2013 7:55 PM CDT) Only the most recent of2 resultswithin the time period is included. Culture Urine STAPHYLOCOCCUS COAGULASE NEGATIVE [facility] Comment:10,000 CFU/ML Staphy lococcus Coagulase Negative Urine specimen (specimen) URINE SPECIMEN OBTAINED BY CLEAN CATCH PROCEDURE / Unknown 10/12/2013 7:55 PM CDT 10/13/2013 9:24 PM CDT Narrative [facility] - 10/15/2013 10:02 AM CDT AndersonSpecimen#[id number] Akhil Loc/Rm/Bed: EXPCARE G// CLN CATCH U Historical Provider MD LAB - MICROBIOLOG Y ORDERABLES [address] [phone] * LAB RESULTS ORDER (11/01/2009 7:42 PM CDT) Narrative 11/01/2009 7:42 PM CDT Ordered by an unspecified provider. Transcriptions Document, Scanned - 10/26/2009 12:00 AM CDT Scanned Document LAB - THERAPEUTIC DR SCHMIDT MONITORING ORDERABLES * IMAGING/RADIOLOGY/XRAY RESULTS ORDER (11/01/2009 7:42 PM CDT) Only the most recent of4 resultswithin the time period is included. Anatomical Region Laterality Modality Other Narrative 11/01/2009 7:42 PM CDT Ordered by an unspecified provider. Transcriptions Document, Scanned - 10/26/2009 12:00 AM CDT Scanned Document IMAGING * (ABNORMAL) URINALYSIS ROUTINE AUTO (11/01/2009 4:40 PM CDT) Only the most recent of2 resultswithin the time period is included. Source Clean Catch [facility] Color UA Yellow [facility] Character UA Clear [facility] Glucose UA >=1000(AA) NEGATIVE mg/dl [facility] Bilirubin UA NEGATIVE NEGATIVE [facility] Ketone UA NEGATIVE NEGATIVE mg/dl [facility] Specific [place] UA 1.020 1.003 - 1.030 [facility] Blood UA MODERATE(H) NEGATIVE [facility] pH UA 6.5 5.0 - 9.0 [facility] Protein UA >=300(H) NEGATIVE-TR [place]EL[place] mg/dl [facility] Urobilinogen UA 0.2 0.2 - 1.0 Matias Units/dl [facility] Nitrite UA NEGATIVE NEGATIVE [facility] Leukocyte UA NEGATIVE NEGATIVE [facility] Reducing Substances UA >= 2.0(H) Negative gm/dl [facility] WBC UA 3-6(H) 0 - 2 HPF [facility] RBC UA 4-10(H) None Seen HPF [facility] Epithelial Cell UA Greater than 10 Squamous None Seen HPF [facility] Bacteria UA Few(H) None Seen [facility] URINE SPECIMEN OBTAINED BY CLEAN CATCH PROCEDURE / Unknown 11/01/2009 4:40 PM CDT 11/01/2009 5:03 PM CDT Dominique Cerrato MD LAB - URINALYSIS ORD ERABLES Performing Organization Address City/State/[facility] Co de Phone Number [facility] [address] [place] [address] * (ABNORMAL) CBC W AUTO DIFFERENTIAL (11/01/2009 4:35 PM CDT) Only the most recent of3 resultswithin the time period is included. WBC 5.8(DE) 4.0 - 10.0 K/CUMM [facility] RBC 4.52 3.80 - 5.80 M/CUMM [facility] Hemoglobin 12.6 12.0 - 16.0 gm/dl [facility] Hematocrit 37.9 37.0 - 47.0 % [facility] MCV 83.8(DE) 80.0 - 100.0 fl [facility] MCH 27.9 26.0 - 34.0 pg [facility] MCHC 33.2 31.0 - 37.0 gm/dl [facility] Platelet Count 215(DE) 150 - 400 K/CUMM [facility] RDW 13.8 11.5 - 14.5 % [facility] Granulocytes % 52.7(DE) 50 - 70 % [facility] Lymphocytes % 36.3(DE) 20 - 40 % [facility] Monocytes % 8.3 0 - 12 % [facility] Eosinophils % 1.9(DE) 0 - 5 % [facility] Basophils % 0.5(DE) 0 - 2 % [facility] Granulocytes Absolute 3.02 2.00 - 7.00 x1000/cmm [facility] Lymphocytes Absolute 2.09 0.80 - 4.00 x1000/cmm [facility] Monocytes Absolute 0.48 0.00 - 1.20 x1000/cmm [facility] Eosinophils Absolute 0.11 0.00 - 0.50 x1000/cmm [facility] Basophils Absolute 0.03 0.00 - 0.20 x1000/cmm [facility] BLOOD SPECIMEN / Unknown 11/01/2009 4:35 PM CDT 11/01/2009 5:07 PM CDT Dominique Cerrato MD LAB - HEMATOLOGY ORD ERABLES Performing Organization Address City/State/[facility] Co de Phone Number [facility] [address] [place] [address] * (ABNORMAL) COMPREHENSIVE METABOLIC PANEL (11/01/2009 4:35 PM CDT) Only the most recent of2 resultswithin the time period is included. Sodium 138(DE) 137 - 145 mmol/L [facility] Potassium 3.8 3.6 - 5.0 mmol/L [facility] Chloride 104 98 - 107 mmol/L [facility] BUN 8 7 - 17 mg/dl [facility] Creatinine 0.76 0.52 - 1.04 mg/dl [facility] Glucose 224(H) 65 - 105 mg/dl [facility] Calcium 8.8(DE) 8.4 - 10.2 mg/dl [facility] Alkaline Phosphatase 149(H) 38 - 126 U/L [facility] AST 21 8 - 39 U/L [facility] Bilirubin Total < .1(L) 0.2 - 1.3 mg/dl [facility] Protein Total 6.1(L) 6.3 - 8.2 gm/dl [facility] Albumin 2.8(L) 3.9 - 5.0 gm/dl [facility] CO2 28 22 - 30 mmol/L [facility] ALT 19 9 - 52 U/L [facility] eGFR by MDRD 108 >60 mL/min/1.7 3m2 [facility] Comment eGFR [facility] Comment: ? The eGFR does not apply to patients who are younger than ? 18 or older than 70. BLOOD SPECIMEN / Unknown 11/01/2009 4:35 PM CDT 11/01/2009 5:07 PM CDT Dominique Cerrato MD LAB - CHEMISTRY KAYCE STOVALL Performing Organization Address City/[facility]/ZIP Co de Phone Number [facility] [address] [place] [phone] * (ABNORMAL) GLUCOSE - POINT OF CARE (11/01/2009 4:08 PM CDT) Glucose WB/POC 270(H) 70 - 110 mg/dl [facility] BLOOD SPECIMEN / Unknown 11/01/2009 4:08 PM CDT 11/01/2009 4:24 PM CDT Valeria Ring MD LAB - POINT OF CARE ORDERABLES Performing Organization Address [facility] Co de Phone Number [facility] [address] [place] [phone] * (ABNORMAL) BLOOD GASES CORD VENOUS (10/26/2009 10:30 AM CDT) Only the most recent of2 resultswithin the time period is included. pH Cord Venous 7.220 7.18 - 7.33 [facility] pCO2 Cord Venous 67.3(H) 43 - 55 mm Hg [facility] pO2 Cord Venous 22.2 22 - 33 mm Hg [facility] Base Excess Cord Venous -2.5 -2.0 - 2.0 [facility] HCO3 Cord Venous 26.9 mmol/L [facility] Panic Value(s) Read Back By DR Wang @1030 [facility] Comment RT Baby B [facility] CORD BLOOD SPECIMEN / Unknown 10/26/2009 10:30 AM CDT 10/26/2009 10:59 AM CDT Bebeto Acosta MD LAB - BLOOD GASES OR DERABLES Performing Organization Address [facility] de Phone Number [facility] [address] [phone] * (ABNORMAL) BLOOD GASES CORD ARTERIAL (10/26/2009 10:30 AM CDT) Only the most recent of2 resultswithin the time period is included. Pathologist [facility] pH Cord Arterial 7.250 7.16 - 7.30 [facility] pCO2 Cord Arterial 64.5(H) 40 - 55 mm Hg [facility] pO2 Cord Arterial 28.6(H) 12 - 20 mm Hg [facility] HCO3 Cord Arterial 27.7 mmol/L [facility] Base Excess Cord Arterial -1.2 -2.0 - 2.0 [facility] Panic Value(s) Read Back By DR Wang@10 30 [facility] Comment RT Baby B [facility] CORD BLOOD SPECIMEN / Unknown 10/26/2009 10:30 AM CDT 10/26/2009 10:57 AM CDT Bebeto Acosta MD LAB - BLOOD GASES OR DERABLES Performing Organization Address [facility] de Phone Number [facility] [address] [place], [place] [id number] * GROSS + MICRO EXAM (10/26/2009 9:40 AM CDT) Only the most recent of2 resultswithin the time period is included. Pathologist [facility] Result CASE NUMBER [id number] Comment: ORDERING PHYSICIAN ??JEAN PAUL BELTRÁN SPECIMEN TYPE ?Placenta 3rd Trimes Date ? 10/28/2009 Physician ?Sarath Acosta Description ? The specimen is received in a formalin filled container labeled with the patient's name and placenta . ??It consists of a 630 gram twin discoid placenta with two umbilical cords and attached membranes. ??The umbilical cord on one of the discs has one clamp attached to it and will be arbitrarily designated as placenta A. ??Placenta A disc measures 14 x 12.5 x 2 cm. ??The cord measures 10 cm. in length 1 cm. in diameter. ??It inserts eccentrically 4.5 cm. from the closest placental edge and has three blood vessels. Placenta B measures 13.5 x 13 x 3 cm. ??The cord has two clamps attached to it and measures 4 cm. in length and up to 1 cm. in diameter. ??The cord has three blood vessels. ??The surface of cord A is bluish to artis felix. ??The maternal surface displays intact cotyledons. ??The membranes are semitranslucent, shiny, wrinkled and rupture approximately 6 cm. from the closest placental edge. Bit Sharpener sections from placenta A are submitted in cassettes A through C. The umbilical cord of placenta B also has three blood vessels. ??The membranes are semitranslucent, shiny, wrinkled and rupture approximately 12 cm. from the closest placental edge. ??The surface is bluish artis. ??The maternal surface displays intact cotyledons. ??The cut surface reveals no interparenchymal gross abnormalities. ??The dividing membrane is present between the two placentas. ??Bit Sharpener sections from this placenta are submitted in cassettes D through F. ??Bit Sharpener sections from the dividing membrane are submitted in cassette G. [place]/bk Microscopic Exam ? Sections of the twin placenta show a three vessel umbilical cord with no evidence of funisitis or thrombosis. The chorioamniotic membranes do not show any evidence of inflammation. The chorionic plate is unremarkable. The chorionic villi are small to medium size with features of accelerated maturation. Syncytial knots and focal areas of dystrophic calcification are identified. There is no evidence of villitis or infarction. The decidua basalis is unremarkable. [place]/na GM Diagnosis ? I. ?Fused twin placenta ?(630 grams) II. ?? Placenta A -- ?Three vessel umbilical cord -- ?No evidence of funisitis -- ?Chorioamniotic membranes -- ?No pathologic diagnosis -- ?Features of accelerated maturation -- ?Compatible with late third-trimester ?placenta II. ?? Placenta B -- ?Three vessel umbilical cord -- ?No evidence of funisitis -- ?Chorioamniotic membranes -- ?No pathologic diagnosis -- ?Features of accelerated maturation -- ?Compatible with late third-trimesters ?placenta [place]/na GM Rug Cleaner Hand ? na Pathologist ?Sia Razo MD [employer]. ?10/30/2009 0800 <1> CPT code ? 47243y5 MISCELLANEOUS SAMPLES / Unknown 10/26/2009 9:40 AM CDT 10/28/2009 10:10 AM CDT Historical Provider LAB - PATHOLOGY/C YTOLOGY ORDERABLES * BLOOD TYPE VERIFICATION (10/26/2009 8:06 AM CDT) ABO Rh O Pos SEE BELOW [facility] Comment: Weak D testing is not performed at [facility] BLOOD SPECIMEN / Unknown 10/26/2009 8:06 AM CDT 10/26/2009 8:21 AM CDT Bebeto Acosta MD LAB - BLOOD BANK ORD ERABLES [facility] [address] [place] [address] * URIC ACID BLOOD (10/26/2009 6:25 AM CDT) Uric Acid 5.2 2.5 - 6.2 mg/dl [facility] BLOOD SPECIMEN / Unknown 10/26/2009 6:25 AM CDT 10/26/2009 6:46 AM CDT Izabela Pardo MD LAB - CHEMISTRY KAYCE STOVALL Performing Organization Address [facility] de Phone Number [facility] [address] [place] [phone] * TYPE + SCREEN PANEL (10/26/2009 6:25 AM CDT) ABO Rh O Pos SEE BELOW [facility] Comment: Weak D testing is not performed at [facility] Antibody Screen Neg [facility] Previous History Check Done No historical blood type. ??Blood type confirmation needed prior to transfusion. [facility] BLOOD SPECIMEN / Unknown 10/26/2009 6:25 AM CDT 10/26/2009 6:46 AM CDT Izabela Pardo MD LAB - BLOOD BANK ORD ERAWANDA Performing Organization Address [facility] Co de Phone Number [facility] [address] [place] [address] * (ABNORMAL) LDH BLOOD (10/26/2009 6:25 AM CDT) LDH 1049(H) 313 - 618 U/L [facility] BLOOD SPECIMEN / Unknown 10/26/2009 6:25 AM CDT 10/26/2009 6:46 AM CDT Izabela Pardo MD LAB - CHEMISTRY KAYCE STOVALL Performing Organization Address [facility] de Phone Number [facility] [address] [place] [phone] * DRUG SCREEN TRIAGE PANEL (10/26/2009 5:00 AM CDT) Phencyclidine Screen Urine Negative Negative ng/ml [facility] Benzodiazepines Screen Urine Negative Negative ng/ml [facility] Cocaine Screen Urine Negative Negative ng/ml [facility] Amphetamines Screen Urine Negative Negative ng/ml [facility] Cannabinoids Screen Urine Negative Negative ng/ml [facility] Opiate Screen Urine Negative Negative ng/ml [facility] Barbiturates Screen Urine Negative Negative ng/ml [facility] URINE / Unknown 10/26/2009 5 :00 AM CDT 10/26/2009 5:31 AM CDT Izabela Pardo MD LAB - URINE CHEMISTR Y ORDERABLES Performing Organization Address City/[facility] Co de Phone Number [facility] [address] [place] [address] * URINALYSIS OBSTETRICS - POINT OF CARE (10/26/2009 2:30 AM CDT) Glucose UA neg Negative [facility] Bilirubin UA Negative [facility] PO CT TESTING Ketone UA neg Negative [facility] Specific [place] UA POCT 1.000 - 1.030 [facility] Blood UA Negative [facility] pH UA 6.5 5.0 - 8.0 pH units [facility] Protein UA 2000 Negative [facility] Urobilinogen UA 0.2 - 1.0 EU/dL [facility] Nitrite UA Negative [facility] Leukocyte UA Negative [facility] PO CT TEST[facility] QC Verified Yes [facility] POC T TESTING Urine specimen (specimen) URINE / Unknown 10/26/2009 2:30 AM CDT Izabela Pardo MD LAB - POINT OF CARE ORDERABLES Performing Organization Address [facility] Co de Phone [place] [address] * SONOGRAM - COMPLETE (10/10/2009) Only the most recent of2 resultswithin the time period is included. Anatomical Region Laterality Modality Other Chica Price MD [facility] ORDERABLES Care Teams Production Line Worker Relationship Specialty Start Date End Date Maura Zuñiga DO [address] [place] [address], [place] [phone] PCP - General 11/01/09
--- OUTSIDE RECORDS SUMMARY | 2024-06-30 02:29 | XMS_ITS | Encounter Summary ---
Author Organization [facility] Address [facility] [place] [address] [place] [address] Care Team Providers Care Dope And Fabric Worker Name Role Phone Simón Mcdonough MD Primary Care Provider [phone] Encounter Details Date Type Department Care Team (Late st Contact Info) Description 10/26/2023 Abstract [facility] [address] [address] Colin Lu MA Social History Tobacco Use Types Packs/Day Years Used Date Smoking Tobacco: Former Cigarettes Q uit: 07/14/2023 Smokeless Tobacco: Never Comments:Was smoking 2-3 cig arettes daily Alcohol Use Standard Drinks/Week Comments Never 0 (1 standard drink = 0.6 oz pur e alcohol) [facility] Utilities Answer Date Recorded In the past 12 months has e electric, gas, oil, or water company threatened to [...] week 07/15/2023 How often do you attend chur ch or samaritan services? More than 4 times per year 07/15/2023 Do you belong to any clubs o r organizations such as restoration groups, unions, fraternal or athletic groups, or [...] Recorded Patient Health Questionnaire-2 Score 0 07/15/2023 [facility] Answer Date Recorded [...] place to sleep or slept in a halfway (including now)? No 07/15/2023 Comments Unknown Sex and Gender Information Value Date Recorded Sex Assigned at Not on file Legal Sex Female 4:52 PM CDT Gender Identity Not on file Sexual Orientation Not on file documented as of this encounter Functional Status * Are you deaf or do you have serious difficulty hearing Answer Date of Assessment Author Status No 07/15/2023 12:05 PM Mela Saucedo R N Active * Are you blind or do you have serious difficulty seeing, even when wearing glasses? Answer Date of Assessment Author Status No 07/15/2023 12:05 PM Mela Saucedo R N Active * Do you have serious difficulty walking or climbing stairs? Answer Date of Assessment Author Status No 07/15/2023 12:05 PM Mela Saucedo R N Active * Do you have difficulty dressing or bathing? Answer Date of Assessment Author Status No 07/15/2023 12:05 PM Mela Saucedo R N Active * Because of a physical, mental, or emotional condition, do you have difficulty doing errands alone such as visiting a doctor's office or shopping? Answer Date of Assessment Author Status No 07/15/2023 12:05 PM Mela Saucedo R N Active documented as of this encounter Mental Status * Because of a physical, mental, or emotional condition, do you have serious difficulty concentrating, remembering, or making decisions? Answer Entry Date Author Status No 07/15/2023 12:05 PM COMMERCIAL ANALYST Mela Yee R N Active documented in this encounter Plan of Treatment Upcoming Encounters Date Type Department Care Team (Late st Contact Info) Description 10/02/2024 10:30 AM CDT Office Visit [facility] [place], [place] [id number] Cyndi Bearden MD [address] [place], [place] [id number] documented as of this encounter Goals Goal Patient Goal Type Associated Problems Recent Progress Patient-Stated? Author Patient will return to prior living situation and remain independent in ADLs upon discharge from hospital Lifestyle No Jayla Garcia, FRUIT DUMPER documented as of this encounter Procedures Procedure Name Priority Date/Time Associated Diagnosis Comments HEMOGLOBIN, GLYCOSYLATED Routine 02/24/2024 COMPREHENSIVE METABOLIC PANEL Routine 02/24/2024 LIPID PANEL Routine 02/24/2024 CBC, MANUAL DIFF Routine 02/24/2024 VITAMIN D, 25 OH Routine 02/24/2024 MAGNESIUM Routine 02/24/2024 METANEPHRINES PLASMA Routine 10/20/2023 documented in this encounter Results * VITAMIN D, 25 OH (02/24/2024) VITAMIN D 25 HYDROXY S/P/B 31 02/24/2024 us Default History Genericprovider LABORATORY Final Result * (ABNORMAL) COMPREHENSIVE METABOLIC PANEL (02/24/2024) SODIUM S/P/B 138 GLUCOSE 84 mg/dL AST 19 BUN 16 CREATININE S/P/B 1.06(A) 0.5 - 1.0 CALCIUM S/P/B 9.3 POTASSIUM S/P/B 4.3 CHLORIDE S/P/B 103 ALT 15 GFR ESTIMATE 66 us Default History Genericprovider LABORATORY Final Result * LIPID PANEL (02/24/2024) Pathologist [facility] CHOLESTEROL 161 TRIGLYCERIDES 80 HDL 72 LDL (CALCULATED) 73 NON HDL CHOLESTEROL 89 Default History Genericprovider LABORATORY Final Result * CBC, MANUAL DIFF (02/24/2024) Pathologist [facility] WBC 6.6 HGB 15.4 HCT 48.8 PLT 260 Default History Genericprovider LABORATORY Final Result * HEMOGLOBIN, GLYCOSYLATED (02/24/2024) Pathologist [facility] HGB A1C 11.5 % Default History Genericprovider LABORATORY Final Result * MAGNESIUM (02/24/2024) Pathologist [facility] MAGNESIUM 2.0 Default History Genericprovider LABORATORY Final Result * METANEPHRINES PLASMA (10/20/2023) [facility] [address] METANEPHRINE FREE S/P/B <25 <=57 NORMETANEPHRINE FREE S/P/B 31 <=148 TOTAL 31 <=205 10/20/2023 Default History Genericprovider LABORATORY Final Result documented in this encounter Visit Diagnoses Not on filedocumented in this encounter Care Teams Dope And Fabric Worker Relationship Specialty Start Date End Date Simón Mcdonough MD PCP - General 11/15/14 documented as of this encounter
--- OUTSIDE RECORDS SUMMARY | 2024-06-30 02:29 | XMS_ITS | Continuity of Care Document ---
Author Organization [facility] Address [address] [place] [address] Phone Care Team Providers Care Custom Harvester Name Role Phone Vipul Santo MD Unavailable Unavailable Procedures Procedure Date INJECT, ANESTHETIC AND/OR ST EROID, TRANSFORAMINAL EPIDURAL; C/T, SINGLE LEVEL Triamcinolone Acetonide Injection, 10mg SURGICAL TRAY LOW OSMOLAR CONTRAST (200 TO 299 MG IODI NE) LUMBAR SPINE CT W/O CONTRAST INJECTION ANESTHETIC AND/OR STERIOD, TRANS EPIDURAL LUMB OR SACRAL,, SINGLE LEVE SURGICAL TRAY LOW OSMOLAR CONTRAST (200 TO 299 MG IODI NE) Triamcinolone Acetonide Injection, 10mg Advance Directives Directive Yes / No Effective Date File Name No Information Encounters Encounter Description Practice Location Reason(s) For Visit Diagnoses Date Provider Providers Copied on Encounter [facility], [address], [place], [place], [address], [place] tel:[phone] [facility] No Information Hansa Matthew. [address], [place], [place], [address], [place]. tel:[phone] Referring Provider: Rubin Watson DO, [address], [place], [address]. tel:[phone] [facility], [address], [place], [place], [address], tel:[phone] [facility] No Information Tiffanie Sharma. [address], [place], [place], [address], . tel:[phone] Referring Provider: Rubin Watson DO, [address], [place], [address]. tel:[phone] Family History Family Member Type Diagnosis Age At Onset No Information Payers Payer name Insurance type Covered libertarian ID Authorkya lexy(s) [facility] [id number] Social History Type Description Quantity Date Captured Comments Sex Female Smoking Status No Information Chief Complaint And Reason For Visit No Information Reason For Referral Reason For Referral No Information History Of Present Illness Encounter Date Complaint History Of Prese nt Illness No Information Functional Status Date Functional Assessmen t No Information Instructions Date Instruction Additional Infor mation No Information Assessments Type Assessment Date No Information Patient Care Teams Name Effective Dates (start - stop) Status Members No Information
--- OUTSIDE RECORDS SUMMARY | 2024-06-30 02:29 | XMS_ITS | Continuity of Care Document ---
Author Organization [facility] Address [address] [place] [address] [address] [place] [address] Phone Care Team Providers Care Floor Assembler Name Role Phone Rickey Mckinnon DO Unavailable Unavailable Advance Directives Directive Yes / No Effective Date File Name No Information Encounters Encounter Description Practice Location Reason(s) For Visit Diagnoses Date Provider Providers Copied on Encounter [facility], [address], [place], [place], [address], [place] [phone] [facility] No Information Pratibha Bustos. [address] [place], [address], [place]. tel: [phone] Family History Family Member Type Diagnosis Age At Onset No Information Payers Payer name Insurance type Covered republican ID Authoriza tion(s) Medicaid [facility] [id number] Social History Type Description Quantity Date Captured [...]
--- OUTSIDE RECORDS SUMMARY | 2024-06-30 02:29 | XMS_ITS | Clinical Summary ---
Author Organization [facility] Address [address] [address] Phone Care Team Providers Care Meeting/Event Planner Name Role Phone Unavailable Primary Care Provider Unavailabl e Allergies Active Allergy Reactions Criticality Noted Date Comments Balta Inhibitors Angioedema High 12/19/2020 Irbesartan Shortness of Breath/Wheezing High 021 Chest pain Nebivolol Other (See Comments) 12/19/2020 Hair loss Sumatriptan Hallucination Low 12/19/2020 Tramadol Hallucination Low 12/19/2020 Medications aspirin (PATRICE) 325 mg tablet Take 325 mg by mouth daily. Active furosemide (LASIX) 40 mg tablet Take 40 mg by mouth daily. Active potassium chloride (KLOR-CON) 20 mEq Extended Release tablet Take 20 mEq by mouth daily. Active metoprolol tartrate (LOPRESSOR) 100 mg tablet Take 100 mg by mouth 2 times daily. Active DULoxetine (CYMBALTA) 60 mg Capsule, Delayed Release(E.C.) Take 60 mg by mouth daily. Active atorvastatin (LIPITOR) 20 mg tablet Take 20 mg by mouth daily. Active losartan-hydroC HLOROthiazide (HYZAAR) 100-25 mg tablet Take 1 Tablet by mouth daily. Active cloNIDine (SGXRTGIE-QSU-0 ) 0.3 mg/24 hr patch Apply 1 Patch to skin as directed every 7 days. Active omeprazole (PriLOSEC) 40 mg Capsule, Delayed Release(E.C.) Take 40 mg by mouth daily. Active montelukast (SINGULAIR) 10 mg tablet Take 10 mg by mouth daily at bedtime. Active ARIPiprazole (ABILIFY) 2 mg tablet Take 2 mg by mouth daily. Active glimepiride (AMARYL) 4 mg tablet Take 4 mg by mouth 2 times daily with meals. Active albuterol sulfate 90 mcg/Actuation inhaler Take 2 Puffs by inhalation every 6 hours as needed for Shortness of Breath. Active fluticasone propion-salmete roL (ADVAIR DISKUS,WIXELA INHUB) 500-50 mcg/dose disk inhaler Take 1 Puff by inhalation 2 times daily. Active cetirizine (ZyrTEC) 10 mg tablet Take 10 mg by mouth 1 time daily as needed for Allergies. Active levocetirizine (XYZAL) 5 mg tablet Take 5 mg by mouth 1 time daily as needed for Allergies. Active NIFEdipine (PROCARDIA XL) 90 mg Extended Release 24 hour tablet Take 90 mg by mouth daily. Active FLUoxetine (PROzac) 20 mg capsule Take 20 mg by mouth daily. Active HYDROcodone-balta taminophen (HYCET) 7.5-325 mg/15 mL SolutionIndicat ions:Morbid obesity (CMS/HCC) Take 15 mL by mouth every 6 hours as needed for severe pain. Max Daily Amount: 60 mL 300 mL 11/25/2021 12:59 PM CDT 2 Active ondansetron (ZOFRAN ODT) 4 mg Tablet, Rapid Dissolve Dissolve 1 tablet on top of tongue, then swallow with saliva every 6 hours as needed for Nausea/Vomiting . 28 Tablet 11/25/2021 12:59 PM CDT 2 Active Active Problems Problem Noted Date Diagnosed Date Hypertension 11/24/2021 Type 2 diabetes mellitus wit hout complication, without long-term current use of insulin 11/24/2021 Other hyperlipidemia 11/24/2021 TANNA (obstructive sleep apnea) 11/24/2021 Mild intermittent asthma without complication Gastroesophageal reflux disease without esophagi tis 11/24/2021 Anxiety and depression 11/24/2021 General medical exam 11/24/2021 Morbid obesity with body mass index of 40.0-49.9 11/24/2021 Immunizations Immunization Administration Dates Next Due (VISHNU) COVID-19 VACCINE - EMERGENCY USE AUTHORIZATION, AD26,COV2S(PF) 0.5 ML IM SUSP 09/10/2020 (SPIKEVAX) (12 YRS UP PRIMAR Y SERIES) COVID-19 VACCINE - MRNA-1273(PF) 100 MCG/0.5 ML IM SUSP 05/15/2021 Social History Tobacco Use Types Packs/Day Years Used Date Smoking Tobacco: Former Smokeless Tobacco: Never Alcohol Use Standard Drinks/Week Comments Not Currently 0 (1 standard drink = 0.6 oz pur e alcohol) Comments No Sex and Gender Information Value Date Recorded Sex Assigned at Not on file Legal Sex Female 12:51 PM CDT Gender Identity Not on file Sexual Orientation Not on file Last Filed Vital Signs Vital Sign Reading Time Taken Comments Blood Pressure 142/86 11/25/2021 11:45 AM CDT Pulse 71 11/25/2021 11:45 AM CDT Temperature 36.7 ??C (98.1 ??F) 11/25/2021 11:45 AM C DT Respiratory Rate 19 11/25/2021 11:45 AM CDT Oxygen Saturation 100% 11/25/2021 11:45 AM CDT Inhaled Oxygen Concentration - - Weight 124.3 kg (274 lb) 11/25/2021 5:00 AM CDT Height 167.6 cm (5' 6 ) 11/24/2021 2:00 PM CDT Body Mass Index 44.22 11/24/2021 2:00 PM CDT Plan of Treatment Health Maintenance Due Date Last Done Comments PNEUMOCOCCAL VACCINE 0-64 YEARS (1 of 2 - PCV) 1985 DIABETES ANNUAL FOOT EXAM 1997 DIABETES ANNUAL RETINAL EXAM 1997 DIABETES MICROALBUMIN ANNUAL SCREEN 1997 LDL CHOLESTEROL ANNUAL 1997 HEPATITIS B VACCINES (1 of 3 - 19+ 3-dose series) 1998 CERVICAL CANCER SCREENING 2009 BREAST CANCER SCREENING 2019 DTAP/TDAP/TD VACCINES (2 - T d or Tdap) 10/30/2019 10/29/2009 DIABETES HBA1C Q 6 MONTHS 11/06/2021 05/08/2021 INFLUENZA VACCINE (#1) 2024 2, 03/26/2021, 05/06/2019 COVID-19 Vaccine (3 - 2023-2 5 season) 2024 05/15/2021, 09/10/2020 HPV VACCINES Aged Out No longer eligi ble based on patient's age to complete this topic Medical Devices Implanted Type Area Air Conditioning Manager Device Identifier Shelf Expiration Date Model / Serial / Lot Seamguard Endogia 60 Blk [id number] - [id number] Implanted:Qty : 2 on 11/24/2021 by Jose Cruz Jean-Baptiste MD at [facility] Biological N/A: Stomach [employer] 07/08/2024 [id number] / / [id number] Seamguard Endogia 60 [id number] [id number] - [id number] Implanted:Qty : 3 on 11/24/2021 by Jose Cruz Jean-Baptiste MD at [facility] Biological N/A: Stomach [employer] 06/25/2024 [id number] / / [id number] Insurance [facility]ERRED [facility] [employer] Commercial Advance Directives For more information, please contact: [phone] * Full Code (Latest Code Status on File) Date Activated Date Inactivated Comments 11/24/2021 9:56 AM 11/25/2021 3:28 PM * Full Code Date Activated Date Inactivated Comments 11/24/2021 8:17 AM 11/24/2021 9:56 AM * Full Code Date Activated Date Inactivated Comments 02/07/2021 9:01 AM 02/07/2021 1:49 PM
== END 2024-06-28 14:34 | disposition home or self-care (01) ==
PROVIDERS: PCP Internal Medicine
DX: Z01.818 Encounter for other preprocedural examination (principal); R94.31 Abnormal electrocardiogram [ECG] [EKG]
CPT/HCPCS: 36415; 71046; 80053; 85025; 85610; 85730; 93005

== ENCOUNTER 2024-07-07 13:35 | Outpatient (CLI) | payer BC, SELFPAY ==
--- NOTE | ~2024-07-07 | US_ITS ---
EXAM: PELVIC ULTRASOUND transabdominal only HISTORY: Estrogen excess COMPARISON: . None FINDINGS: UTERUS: 8.7 x 4.8 x 5.5 cm. The uterus is anteverted and anteflexed. The endometrial complex measures 8.2 mm. A pedunculated fibroid is identified within the anterior margin of the fundus of the uterus. This measures 11 x 9 x 17 mm. RIGHT OVARY: The right ovary is unremarkable in echogenicity and size measuring 2.0 x 1.6 x 3.2 cm. Dopplerable flow is identified. LEFT OVARY: The left ovary is unremarkable in echogenicity and size measuring 2.7 x 1.9 x 2.1 cm Dopplerable flow is identified A single anechoic avascular focus is identified within the left ovary measuring 11 x 9 x 14 mm, repre senting a simple cyst (perhaps an involuting follicle) for which no further follow-up is needed. No free fluid is identified within the pelvis. IMPRESSION: Small fibroid within the uterus. Reviewed, dictated and finalized at location [facility]. [facility]
== END 2024-07-07 13:36 | disposition home or self-care (01) ==
PROVIDERS: PCP Obstetrics & Gynecology Gynecology; Visit Provider Obstetrics & Gynecology Gynecology
DX: D25.9 Leiomyoma of uterus, unspecified (principal); E28.0 Estrogen excess
CPT/HCPCS: 76856

== ENCOUNTER 2024-08-21 10:40 | Outpatient (CLI) | payer BC, SELFPAY ==
--- NOTE | ~2024-08-21 | XR_ITS ---
XR finger 1st RT min 2V Ordering provider: Nani Dunne MD History: . S62.524A - Nondisplaced fracture of distal phalanx of rig... . Comparison: None. FINDINGS: BONES: Fracture of the proximal metaphysis of the distal phalanx of the right thumb with extension to the joint space. JOINT SPACES: Normal. SOFT TISSUES: Normal. IMPRESSION: Fracture proximal metaphysis of the right thumb distal phalanx. Reviewed, dictated and finalized at location A.
--- OUTSIDE RECORDS SUMMARY | 2024-08-21 13:03 | XMS_ITS | Clinical Summary ---
Author Organization [facility] Address [address] [place] [address] Care Team Providers Care Managed Care Liaison Name Role Phone Maura Zuñiga DO Primary Care Provider [phone] Source Comments [facility],non-owned Affiliates and Associated Physician Practices is amultiple site organization consisting of ambulatory clinics and hospital sitesin [place], [place], [place] and [place]. This disclosure is being madepursuant to the Care Everywhere program and may not contain all information available regarding this patient. Last updated 18.[facility] Allergies Active Allergy Reactions Criticality Noted Date [...] 102 11/01/2009 2:30 PM CDT Temperature 36.6 C (97.8 F) 10/29/2009 8:00 AM CDT Respiratory Rate 20 11/01/2009 2:30 PM CDT Oxygen Saturation 97% 10/26/2009 12:16 PM CDT Inhaled Oxygen Concentration - - Weight 129.7 kg (286 lb) 11/01/2009 2:30 PM CDT Height 167.6 cm (5' 6 ) 11/01/2009 2:30 PM CDT Body Mass Index 46.16 11/01/2009 2:30 PM CDT Plan of Treatment Health Maintenance Due Date Last Done Comments COLOGUARD (AGES 45-75) - COL ON CA SCREENING 1979 COLON MONITORING 1979 COLONOSCOPY - COLON CA SCREENING 1979 CT COLONOGRAPHY - COLON CA SCREENING 1979 Colorectal Cancer Screening 1979 FIT - COLON CA SCREENING 1979 FLEX SIG - COLON CA SCREENING 1979 LIPID TESTING 1979 MAMMOGRAM 1979 PAP SMEAR 1979 HIV SCREENING 1994 HEPATITIS C SCREENING 07/01/1997 HEPATITIS B VACCINE (1 of 3 - 19+ 3-dose series) 1998 PNEUMOCOCCAL VACCINE (1 of 2 - PCV) 1998 DTAP/TDAP/TD VACCINES (2 - T d or Tdap) 10/30/2019 10/29/2009 COVID-19 VACCINE (1 - 2023-2 5 season) 2024 INFLUENZA VACCINE (#1) 2024 DEPRESSION SCREENING 06/07/2024 ZOSTER VACCINE (1 of 2) 2029 HIB VACCINE Aged Out No longer eligi ble based on patient's age to complete this topic HPV VACCINE Aged Out No longer eligi ble based on patient's age to complete this topic MENINGOCOCCAL (Group B) VACC INE SHARED DECISION-MAKING Aged Out No longer eligibl e based on patient's age to complete this topic MENINGOCOCCAL GROUPS A/C/Y/W VACCINE Aged Out No longer eligible b ased on patient's age to complete this topic Advance Directives * Full Code (Latest Code Status on File) Date Activated Date Inactivated Comments 10/26/2009 4:25 AM 10/30/2009 1:38 AM Care Teams Managed Care Liaison Relationship Specialty Start Date End Date Maura Zuñiga DO [address] [place] [address] PCP - General 11/01/09
--- OUTSIDE RECORDS SUMMARY | 2024-08-21 13:03 | XMS_ITS | Referral Summary ---
Author Organization [facility] Address [address] [place] [address] Care Team Providers Care Brokerage Branch Manager Name Role Phone Maura Zuñiga DO Primary Care Provider [phone] Source Comments [facility],non-owned Affiliates and Associated Physician Practices is amultiple site organization consisting of ambulatory clinics and hospital sitesin [place], [place], [place] and [place]. This disclosure is being madepursuant to the Care Everywhere program and may not contain all information available regarding this patient. Last updated 18.[facility] Allergies Active Allergy Reactions Criticality Noted Date [...] 4:25 AM 10/30/2009 1:38 AM Care Teams Brokerage Branch Manager Relationship Specialty Start Date End Date Maura Zuñiga DO [address] [facility] [place] [address] PCP - General 11/01/09
--- OUTSIDE RECORDS SUMMARY | 2024-08-21 13:03 | XMS_ITS | Patient Health Summary ---
Author Organization [facility] [employer] Address [address] [place] [address] Care Team Providers Care Window Dresser Name Role Phone Maura Zuñiga DO Primary Care Provider [phone] Note from [facility],non-owned Affiliates and Associated Physician Practices is amultiple site organization consisting of ambulatory clinics and hospital sitesin [place], [place], [place] and [place]. This disclosure is being madepursuant to the Care Everywhere program and may not contain all information available regarding this patient. Last updated 18.[facility] [employer] Allergies * Sumatriptan(Other) * Tramadol Hcl(Psychiatric) Medications [...] is included. Culture Urine STAPHYLOCOCCUS COAGULASE NEGATIVE [facility] Comment:10,000 CFU/ML Staphy lococcus Coagulase Negative Urine specimen (specimen) URINE SPECIMEN OBTAINED BY CLEAN CATCH PROCEDURE / Unknown 10/12/2013 7:55 PM CDT 10/13/2013 9:24 PM CDT Narrative [facility] - 10/15/2013 10:02 AM CDT AndersonSpecimen#[id number] Akhil Loc/Rm/Bed: EXPCARE G// CLN CATCH U Historical Provider LAB - MICROBIOLOG Y ORDERABLES [address] [phone] * LAB RESULTS ORDER (11/01/2009 7:42 PM [...] time period is included. Source Clean Catch [facility] Color UA Yellow [facility] Character UA Clear [facility] Glucose UA >=1000(AA) NEGATIVE mg/dl [facility] Bilirubin UA NEGATIVE NEGATIVE [facility] Ketone UA NEGATIVE NEGATIVE mg/dl [facility] Specific [place] UA 1.020 1.003 - 1.030 [facility] Blood UA MODERATE(H) NEGATIVE [facility] pH UA 6.5 5.0 - 9.0 [facility] Protein UA >=300(H) NEGATIVE-TR ARCELIA mg/dl [facility] Urobilinogen UA 0.2 0.2 - 1.0 Matias Units/dl [facility] Nitrite UA NEGATIVE NEGATIVE [facility] Leukocyte UA NEGATIVE NEGATIVE [facility] Reducing Substances UA >= 2.0(H) Negative gm/dl [facility] WBC UA 3-6(H) 0 - 2 HPF [facility] RBC UA 4-10(H) None Seen HPF [facility] Epithelial Cell UA Greater than 10 Squamous None Seen HPF [facility] Bacteria UA Few(H) None Seen [facility] URINE SPECIMEN OBTAINED BY CLEAN CATCH PROCEDURE / Unknown 11/01/2009 4:40 PM CDT 11/01/2009 5:03 PM CDT Dominique Cerrato MD LAB - URINALYSIS ORD ERABLES Performing Organization Address City/State/[facility] Co de Phone Number [facility] [address] [place] [address] * (ABNORMAL) CBC W AUTO DIFFERENTIAL (11/01/2009 4:35 PM CDT) Only the most recent of3 resultswithin the time period is included. WBC 5.8(DE) 4.0 - 10.0 K/CUMM [facility] RBC 4.52 3.80 - 5.80 M/CUMM [facility] Hemoglobin 12.6 12.0 - 16.0 gm/dl [facility] Hematocrit 37.9 37.0 - 47.0 % [facility] MCV 83.8(DE) 80.0 - 100.0 fl [facility] MCH 27.9 26.0 - 34.0 pg [facility] MCHC 33.2 31.0 - 37.0 gm/dl [facility] Platelet Count 215(DE) 150 - 400 K/CUMM [facility] RDW 13.8 11.5 - 14.5 % [facility] Granulocytes % 52.7(DE) 50 - 70 % [facility] Lymphocytes % 36.3(DE) 20 - 40 % [facility] Monocytes % 8.3 0 - 12 % [facility] Eosinophils % 1.9(DE) 0 - 5 % [facility] Basophils % 0.5(DE) 0 - 2 % [facility] Granulocytes Absolute 3.02 2.00 - 7.00 x1000/cmm [facility] Lymphocytes Absolute 2.09 0.80 - 4.00 x1000/cmm [facility] Monocytes Absolute 0.48 0.00 - 1.20 x1000/cmm [facility] Eosinophils Absolute 0.11 0.00 - 0.50 x1000/cmm [facility] Basophils Absolute 0.03 0.00 - 0.20 x1000/cmm [facility] BLOOD SPECIMEN / Unknown 11/01/2009 4:35 PM CDT 11/01/2009 5:07 PM CDT Dominique Cerrato MD LAB - HEMATOLOGY ORD ERABLES Performing Organization Address City/State/[facility] Co de Phone Number [facility] [address] [place] [address] * (ABNORMAL) COMPREHENSIVE METABOLIC PANEL (11/01/2009 4:35 PM CDT) Only the most recent of2 resultswithin the time period is included. Sodium 138(DE) 137 - 145 mmol/L [facility] Potassium 3.8 3.6 - 5.0 mmol/L [facility] Chloride 104 98 - 107 mmol/L [facility] BUN 8 7 - 17 mg/dl [facility] Creatinine 0.76 0.52 - 1.04 mg/dl [facility] Glucose 224(H) 65 - 105 mg/dl [facility] Calcium 8.8(DE) 8.4 - 10.2 mg/dl [facility] Alkaline Phosphatase 149(H) 38 - 126 U/L [facility] AST 21 8 - 39 U/L [facility] Bilirubin Total < .1(L) 0.2 - 1.3 mg/dl [facility] Protein Total 6.1(L) 6.3 - 8.2 gm/dl [facility] Albumin 2.8(L) 3.9 - 5.0 gm/dl [facility] CO2 28 22 - 30 mmol/L [facility] ALT 19 9 - 52 U/L [facility] eGFR by MDRD 108 >60 mL/min/1.7 3m2 [facility] Comment eGFR [facility] Comment: The eGFR does not apply to patients who are younger than 18 or older than 70. BLOOD SPECIMEN / Unknown 11/01/2009 4:35 PM CDT 11/01/2009 5:07 PM CDT Dominique Cerrato MD LAB - CHEMISTRY KAYCE STOVALL Performing Organization Address City/[facility]/ZIP Co de Phone Number [facility] [address] [place] [phone] * (ABNORMAL) GLUCOSE - POINT OF CARE (11/01/2009 4:08 PM CDT) Glucose WB/POC 270(H) 70 - 110 mg/dl [facility] BLOOD SPECIMEN / Unknown 11/01/2009 4:08 PM CDT 11/01/2009 4:24 PM CDT Valeria Ring MD LAB - POINT OF CARE ORDERABLES Performing Organization Address [facility] Co de Phone Number [facility] [address] [place] [phone] * (ABNORMAL) BLOOD GASES CORD VENOUS (10/26/2009 10:30 AM CDT) Only the most recent of2 resultswithin the time period is included. pH Cord Venous 7.220 7.18 - 7.33 [facility] pCO2 Cord Venous 67.3(H) 43 - 55 mm Hg [facility] pO2 Cord Venous 22.2 22 - 33 mm Hg [facility] Base Excess Cord Venous -2.5 -2.0 - 2.0 [facility] HCO3 Cord Venous 26.9 mmol/L [facility] Panic Value(s) Read Back By DR Wang @1030 [facility] Comment RT Baby B [facility] CORD BLOOD SPECIMEN / Unknown 10/26/2009 10:30 AM CDT 10/26/2009 10:59 AM CDT Bebeto Acosta MD LAB - BLOOD GASES OR DERABLES Performing Organization Address City/[facility] Co de Phone Number [facility] [address] [place] [address] * (ABNORMAL) BLOOD GASES CORD ARTERIAL (10/26/2009 10:30 AM CDT) Only the most recent of2 resultswithin the time period is included. pH Cord Arterial 7.250 7.16 - 7.30 [facility] pCO2 Cord Arterial 64.5(H) 40 - 55 mm Hg [facility] pO2 Cord Arterial 28.6(H) 12 - 20 mm Hg [facility] HCO3 Cord Arterial 27.7 mmol/L [facility] Base Excess Cord Arterial -1.2 -2.0 - 2.0 [facility] Panic Value(s) Read Back By DR Wang@10 30 [facility] Comment RT Baby B [facility] CORD BLOOD SPECIMEN / Unknown 10/26/2009 10:30 AM CDT 10/26/2009 10:57 AM CDT Bebeto Acosta MD LAB - BLOOD GASES OR DERABLES Performing Organization Address [facility] de Phone Number [facility] [address] [place] [address] * GROSS + MICRO EXAM (10/26/2009 9:40 AM CDT) Only the most recent of2 resultswithin the time period is included. Result CASE NUMBER [id number] Comment: ORDERING PHYSICIAN JEAN PAUL BELTRÁN SPECIMEN TYPE Placenta 3rd Trimes Date 10/28/2009 Physician Sarath Acosta Gross Description The specimen is received in a formalin filled container labeled with the patient's name and placenta . It consists of a 630 gram twin discoid placenta with two umbilical cords and attached membranes. The umbilical cord on one of the discs has one clamp attached to it and will be arbitrarily designated as placenta A. Placenta A disc measures 14 x 12.5 x 2 cm. The cord measures 10 cm. in length 1 cm. in diameter. It inserts eccentrically 4.5 cm. from the closest placental edge and has three blood vessels. Placenta B measures 13.5 x 13 x 3 cm. The cord has two clamps attached to it and measures 4 cm. in length and up to 1 cm. in diameter. The cord has three blood vessels. The surface of cord A is bluish to artis felix. The maternal surface displays intact cotyledons. The membranes are semitranslucent, shiny, wrinkled and rupture approximately 6 cm. from the closest placental edge. [address] Production sections from placenta A are submitted in cassettes A through C. The umbilical cord of placenta B also has three blood vessels. The membranes are semitranslucent, shiny, wrinkled and rupture approximately 12 cm. from the closest placental edge. The surface is bluish artis. The maternal surface displays intact cotyledons. The cut surface reveals no interparenchymal gross abnormalities. The dividing membrane is present between the two placentas. [address] Production sections from this placenta are submitted in cassettes D through F. [address] Production sections from the dividing membrane are submitted in cassette G. IL/bk Microscopic Exam Sections of the twin placenta show a [...] or infarction. The decidua basalis is unremarkable. IL/na GM Diagnosis I. Fused twin placenta (630 grams) II. Placenta A -- Three vessel umbilical cord -- No evidence of funisitis -- Chorioamniotic membranes -- No pathologic diagnosis -- Features of accelerated maturation -- Compatible with late third-trimester placenta II. Placenta B -- Three vessel umbilical cord -- No evidence of funisitis -- Chorioamniotic membranes -- No pathologic diagnosis -- Features of accelerated maturation -- Compatible with late third-trimesters placenta IL/na GM [employer] Integration Specialist na Pathologist Sia Razo MD [employer]. 10/30/2009 0800 <1> CPT code 49133a1 MISCELLANEOUS SAMPLES / Unknown 10/26/2009 9:40 AM CDT 10/28/2009 10:10 AM CDT Historical Provider LAB - PATHOLOGY/C YTOLOGY ORDERABLES * BLOOD TYPE VERIFICATION (10/26/2009 8:06 AM CDT) ABO Rh O Pos SEE BELOW [facility] Comment: Weak D testing is not performed at [facility] BLOOD SPECIMEN / Unknown 10/26/2009 8:06 AM CDT 10/26/2009 8:21 AM CDT Bebeto Acosta MD LAB - BLOOD BANK ORD ERABLES Performing Organization Address City/[facility]/ZIP Co de Phone Number [facility] [address] [place] [phone] * URIC ACID BLOOD (10/26/2009 6:25 AM CDT) Uric Acid 5.2 2.5 - 6.2 mg/dl [facility] BLOOD SPECIMEN / Unknown 10/26/2009 6:25 AM CDT 10/26/2009 6:46 AM CDT Izabela Pardo MD LAB - CHEMISTRY KAYCE STOVALL Performing Organization Address [facility] Co de Phone Number [facility] [address] [place] [phone] * TYPE + SCREEN PANEL (10/26/2009 6:25 AM CDT) ABO Rh O Pos SEE BELOW [facility] Comment: Weak D testing is not performed at [facility] Antibody Screen Neg [facility] Previous History Check Done No historical blood type. Blood type confirmation needed prior to transfusion. [facility] BLOOD SPECIMEN / Unknown 10/26/2009 6:25 AM CDT 10/26/2009 6:46 AM CDT Izabela Pardo MD LAB - BLOOD BANK ORD ERAWANDA Performing Organization Address City/[facility] Co de Phone Number [facility] [address] [place] [phone] * (ABNORMAL) LDH BLOOD (10/26/2009 6:25 AM CDT) LDH 1049(H) 313 - 618 U/L [facility] BLOOD SPECIMEN / Unknown 10/26/2009 6:25 AM CDT 10/26/2009 6:46 AM CDT Izabela Pardo MD LAB - CHEMISTRY ORDE RABLES Performing Organization Address [facility] Co de Phone Number [facility] [address] [place] [phone] * DRUG SCREEN TRIAGE PANEL (10/26/2009 5:00 AM CDT) Phencyclidine Screen Urine Negative Negative ng/ml [facility] Benzodiazepines Screen Urine Negative Negative ng/ml [facility] Cocaine Screen Urine Negative Negative ng/ml [facility] Amphetamines Screen Urine Negative Negative ng/ml [facility] Cannabinoids Screen Urine Negative Negative ng/ml [facility] Opiate Screen Urine Negative Negative ng/ml [facility] Barbiturates Screen Urine Negative Negative ng/ml [facility] URINE / Unknown 10/26/2009 5 :00 AM CDT 10/26/2009 5:31 AM CDT Izabela Pardo MD LAB - URINE CHEMISTR Y ORDERABLES Performing Organization Address [facility] Co de Phone Number [facility] [address] [place] [address] * URINALYSIS OBSTETRICS - POINT OF CARE (10/26/2009 2:30 AM CDT) Glucose UA neg Negative [facility] Bilirubin UA Negative [facility] Ketone UA neg Negative [facility] Specific [place] UA POCT 1.000 - 1.030 [facility] POCT [...] POINT OF CARE ORDERABLES Performing Organization Address [facility] Co de Phone Number [place] [address] * SONOGRAM - COMPLETE (10/10/2009) Only the most recent of2 resultswithin the time period is included. Anatomical Region Laterality Modality Other Chica HOLLINS ORDERABLES Care Teams Window Dresser Relationship Specialty Start Date End Date Maura Zuñiga DO [address] [facility] [address] [place] [address] PCP - General 11/01/09
--- OUTSIDE RECORDS SUMMARY | 2024-08-21 13:03 | XMS_ITS ---
Author Organization [facility] Address [address] [place] [address] Care Team Providers Care Channeler Insole Name Role Phone Simón Mcdonough MD Primary Care Provider Unavail able Rubin Watson Unavailable [phone] Vipul Davis Unavailable Unavailable ALLERGIES Allergen (clinical drug ingredient) Drug/Non Drug Allergy documented on EMR Reaction Allergy Type Onset Date Status angiotensin-converting enzyme inhibitor (FN) ARCELIA Inhibitors Unknown Drug Allergy Acti ve irbesartan Irbesartan Unknown Drug Allergy Activ e Imitrex Unknown Drug Allergy Active nebivolol Bystolic Unknown Drug Allergy Active REASON FOR REFERRAL Reason DIAGNOSES: s/p L4-S1 LDL's, L5-S1 TLIF 3 times per week for 3 weeks eval and treat, exercise, modalities per therapist's discretion; HEP Referral Organization [facility] Referring Provider First Name Rubin Referring Provider Last Name Walter Referring Provider Speciality Orthopedic Surgery Referred Provider Specialty Physical The rapy Referral Priority Routine REASON FOR VISIT post op, wound check MEDICATIONS Medication SIG (Take, Route, Frequency, Duration) Notes Start Date End Date Status tiZANidine HCl 4 MG 1 tablet Orally three times daily as needed for spasms. MAY CAUSE DROWSINESS/GROGGINE SS for 30 day(s) 08/14/2024 Active traMADol HCl 50 MG 1 tablet as needed Orally every 4-6 hours. TAKE AT HOME FIRST BEFORE DRIVING ON MED for 10 days 08/10/2024 Active Sulfamethoxazole-Trimeth oprim 800-160 MG 1 tablet Orally twice daily for 7 days 08/07/2024 Not-Taking oxyCODONE-Acetaminophen 7.5-325 MG 1 tablet as needed Orally every 6 hrs for 7 days 07/31/2024 Active ALPRAZolam Active Meloxicam Active ASA 81 Mg Active NIFEdipine Active Labetalol HCl Active Losartan Potassium A ctive Spironolactone Activ e Atorvastatin Calcium Active Albuterol Active Jardiance Active Tylenol Active HumaLOG Active Dorzolamide HCl Acti ve Calcium + D Active Gabapentin 300 Mg BID Active metFORMIN HCl Not-Ta VITAL SIGNS BMI 33.89 kg/m2 08/14/2024 Height 66 in 08/14/2024 Temperature 98.0 degrees Fahrenheit 08/15/19 25 Weight 210 lbs 08/14/2024 Encounters Encounter Location Date Provider Diagnosis [facility] [address] [place] [address] 08/14/2024 Rubin Watson PLAN OF TREATMENT Medication Medication Name Sig Start Date Stop Date Notes tiZANidine HCl 4 MG 1 tablet Orally thre e times daily as needed for spasms. MAY CAUSE DROWSINESS/GROGGINESS for 30 day(s) 08/14/2024 Cyclobenzaprine HCl 10 MG take 1 tablet Orally three times daily. MAY CAUSE DROWSINESS Referrals Referral Date Details DIAGNOSES: s/p L4-S1 LDL's, L5-S1 TLIF 3 times per week for 3 weeks eval and treat, exercise, modalities per therapist's discretion; HEP Next Appt Details Provider Name:Rubin Andersen ot, 09/18/2024 11:50:00 AM, [address], [address], [place], [address], Consultation Request Notes Referral Date Referring Provider Referred Provider Not es 08/14/2024 Rubin Watson , DIAGNOSES: s /p L4-S1 LDL's, L5-S1 TLIF 3 times per week for 3 weeks eval and treat, exercise, modalities per therapist's discretion; HEP
--- OUTSIDE RECORDS SUMMARY | 2024-08-21 13:04 | XMS_ITS | Clinical Summary ---
Author Organization [facility] Address [address] [place] [address] Phone Care Team Providers Care Safety Technician Name Role Phone Unavailable Primary Care Provider [...] 1 Tablet by mouth daily. Active cloNIDine ([id number] ) 0.3 mg/24 hr patch Apply 1 [...] 71 11/25/2021 11:45 AM CDT Temperature 36.7 C (98.1 F) 11/25/2021 11:45 AM CDT Respiratory Rate 19 11/25/2021 11:45 AM CDT Oxygen Saturation 100% 11/25/2021 11:45 AM CDT Inhaled Oxygen Concentration - - Weight 124.3 kg (274 lb) 11/25/2021 5:00 AM CDT Height 167.6 cm (5' 6 ) 11/24/2021 2:00 PM CDT Body Mass Index 44.22 11/24/2021 2:00 PM CDT Plan of Treatment Health Maintenance Due Date Last Done Comments DIABETES ANNUAL FOOT EXAM 1997 DIABETES ANNUAL [...] - 2023-2 5 season) 2024 05/15/2021, 09/10/2020 COLORECTAL SCREENING 2024 Colorectal Cancer Screening 2024 FIT-DNA Q 3 years 2024 FIT/FOBT Q 1 year 2024 Flex Sig/CT Colonography Q 5 years 2024 HPV VACCINES Aged Out No longer eligi ble based on patient's age to complete this topic Medical Devices Implanted Type Area Teacher Physically Impaired Device Identifier Shelf Expiration Date Model / Serial / Lot Seamguard Endogia 60 Blk [id number] - [id number] Implanted:Qty : 2 on 11/24/2021 by Jose Cruz Jean-Baptiste MD at [facility] Biological N/A: Stomach [employer] 07/08/2024 [id number] / / [id number] Seamguard Endogia 60 Prpl [id number] - [id number] Implanted:Qty : 3 on 11/24/2021 by Jose Cruz Jean-Baptiste MD at [facility] Biological N/A: Stomach [employer] 06/25/2024 [id number] / / [id number] Insurance [facility] [employer] Commercial Advance Directives For more information, please contact: [phone] * Full Code (Latest Code Status on File) Date Activated Date Inactivated Comments 11/24/2021 9:56 AM 11/25/2021 3:28 PM * Full Code Date Activated Date Inactivated Comments 11/24/2021 8:17 AM 11/24/2021 9:56 AM * Full Code Date Activated Date Inactivated Comments 02/07/2021 9:01 AM 02/07/2021 1:49 PM
--- OUTSIDE RECORDS SUMMARY | 2024-08-21 13:04 | XMS_ITS | Clinical Summary ---
Author Organization [facility] Facility Address [address] [address] Care Team Providers Care Hvac Lead Name Role Phone Jayne Llanos MD Primary Care Provider [phone] Social History Tobacco Use Types Packs/Day Years [...] Influenza Vaccine (#1) 2024 03/26/2021, 2018 Insurance [facility] Care Teams Hvac Lead Relationship Specialty Start Date End Date Jayne Llanos MD [address] [place] [address] PCP - General Endocrinology 08/04/21
--- OUTSIDE RECORDS SUMMARY | 2024-08-21 13:05 | XMS_ITS ---
Author Organization [facility] Address [address] [place] [address] Care Team Providers Care Jig Fitter Name Role Phone Jayne Llanos Primary Care Provider [phone] Allergies Allergen (clinical drug ingredient) Drug/Non Drug Allergy documented on EMR Reaction Allergy Type Onset Date Status sumatriptan SUMAtriptan Unknown Drug Allergy Act alicia irbesartan Irbesartan Unknown Drug Allergy Activ e nebivolol Bystolic Unknown Drug Allergy Active REASON FOR VISIT lab f/u lino Medications Medication SIG (Take, Route, Frequency, Duration) Notes Start Date End Date Status Labetalol HCl 200 MG 1 tablet Orally Twice a day Active Vitamin D Active ALPRAZolam 1 MG 1 tab(s) orally every day Active Vitamin D3 *Please review and pick correct strength-formula tion from Modular Patternsan options. If intended option is not shown, discontinue and re-order from Quick Search* Active GVOKE HYPOPEN ONE PACK 1 MG/0.2 ML DIRECTED SUBCUTANEOUSLY ONCE NEEDED for 1 DAYS *Please review for potential replacement for e-prescription and drug interaction check* 04/10/2024 Active Dorzolamide HCl Acti ve NIFEdipine Active dexAMETHasone 1 MG 1 tab(s) orally at 10 pm night before 8 am cortisol for 1 days 04/10/2024 Not-Taking Dexcom G7 Sensor - change sensor every 10 days for 90 days 05/19/2024 Active Basaglar KwikPen 100 UNIT/ML 10 units every morning and 6 units at night Subcutaneous *Please review and pick correct strength-formula tion from MZL Shine Cleaningspan options. If intended option is not shown, discontinue and re-order from Quick Search* Active Aspirin 81 MG 1 tab(s) orally once a day Active PROzac *Please review and pick correct strength-formula tion from Cvergenx options. If intended option is not shown, discontinue and re-order from Quick Search* Active HumaLOG 100 UNIT/ML 3 units with meals Injection three times daily *Please review and pick correct strength-formula tion from Modular Patternsan options. If intended option is not shown, discontinue and re-order from Quick Search* Active Lipitor 80 MG 1 tab(s) orally once a day Active Losartan Potassium 100 MG 1 tablet Orally Once a day *Please review and pick correct strength-formula tion from Modular Patternsan options. If intended option is not shown, discontinue and re-order from Quick Search* Active Cymbalta 60 MG 1 cap(s) orally once a day Active Jardiance 25 MG 1 tab(s) orally once a day (in the morning) Active Spironolactone 25 MG 1 tablet Orally once daily *Please review and pick correct strength-formula tion from Cvergenx options. If intended option is not shown, discontinue and re-order from Quick Search* Active Gabapentin 300 MG 1 cap(s) orally twice a day Active Meloxicam 15 MG 1 tab(s) orally once a day Active traMADol HCl 50 MG 1 tab(s) orally every 6 hours As needed Active Problems Problem Type SNOMED Code ICD Code Onset Dates Problem Status W/U Status Risk Notes Problem Polyarthritis (281893372) Polyarthritis, unspecified (M13.0) Active confirmed Problem Long-term current use of insulin (642352979) assisted (current) use of insulin (Z79.4) Active confirmed Vital Signs Blood pressure systolic 174 mm Hg 05/19/20 24 Blood pressure diastolic 116 mm Hg 024 Heart Rate 112 /min 05/19/2024 Height 66 in 05/19/2024 Weight 225.0 lbs 05/19/2024 BMI 36.31 kg/m2 05/19/2024 Encounters Encounter Location Date Provider Diagnosis [facility] - Jayne Llanos [address] [place] [address] 05/19/2024 Jayne Llanos Type 2 diabetes josemanuel itus with hyperglycemia E11.65 ; Hyperlipidemia, unspecified E78.5 ; Other fatigue R53.83 ; Polyarthritis, unspecified M13.0 ; 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 ; Obesity, unspecified E66.9 and Dietary counseling and surveillance Z71.3 Assessments Encounter Date Diagnosis (ICD Code) Assessment Notes Treatment Notes Treatment Clinical Notes Section Notes 05/19/2024 Type 2 diabetes mellitus with hyperglycemia (ICD-10 - E11.65) 05/19/2024 Hyperlipidemia, unspecified (ICD-10 - E78.5) 05/19/2024 Other fatigue (ICD-10 - R53.83) 05/19/2024 Polyarthritis, unspecified (ICD-10 - M13.0) 05/19/2024 assisted (current) use of insulin (ICD-10 - Z79.4) 05/19/2024 Obesity, unspecified (ICD-10 - E66.9) 05/19/2024 Dietary counseling and surveillance (ICD-10 - Z71.3) 05/19/2024 Other Assessment and Plan: 1. Hypertension- Patient reports high blood pressure readings at home, and blood pressure was high during the visit. The patient is currently on blood pressure medication and is being monitored by a food service driver.Plan: - Continue current blood pressure medication - Encourage patient to monitor blood pressure at home regularly and report any significant changes to the food service driver - Reinforce the importance of medication adherence 2. Type 2 Diabetes- Improved glycemic control with A1c in the sevens. Patient is currently on Basaglar and Humalog insulin.Plan: - Continue current insulin regimen (6 units Basaglar in the evening, 10 units in the morning, and 3 units Humalog with meals) - Encourage patient to monitor blood glucose levels regularly - Follow up in 2 months - per dexcom review in range 78% of time with no hypoglycemia- ranging from 72 mg/dL up to 230 mg/dL with average of 120 mg/dL-sugars have improved drastically only due to use of CGM and patient awareness and ability to react and provide insulin when necessary in safe administrative fashion 3. Dexcom sensor cost issue- Patient reports high cost of Dexcom sensors even with insurance coverage.Plan: - Resubmit prescription under long-term insulin use to see if insurance will cover more of the cost - Provide patient with samples if available 4. High estrogen levels- Patient reports a history of fibroids and a D&C in 2017 or 2018. Recent lab results show elevated estrogen levels.Plan: - Encourage patient to discuss high estrogen levels with their fan mail clerk and consider an ultrasound - Monitor for any symptoms related to high estrogen levels 5. Proteinuria- Patient is dumping a significant amount of protein in the urine but has normal kidney function (creatinine 0.99, filtration rate 72).Plan: - Continue monitoring kidney function - Consider referral to a manifold builder if proteinuria worsens or kidney function declines 6. Constipation- Patient reports chronic constipation and a history of a slipped disc and pinched nerve.Plan: - Recommend gmhw-zir-mxlspen stool softeners or laxatives as needed - Encourage patient to maintain a high-fiber diet and stay hydrated - Follow up on the issue during the next visit 7. Possible autoimmune disease- Some lab results, such as neutrophil count, were abnormal, suggesting a possible autoimmune disease.Plan: - Order CHANDNI and rheumatoid factor tests for the next visit - Consider referral to a fire regulator if results are positive or symptoms worsen Spent 15 minutes preventative counseling patient on dietary recommendations and changes in setting of hyperglycemia- need to restrict refined sugars and processed foods and incorporate up to 150 minutes of moderate level activity weekly. Spent 25 minutes preparing to see the patient (ex review of tests/chart), obtaining and / or reviewing separately obtained history, performing a medically appropriate examination and/or evaluation, counseling and educating the patient/family/pharmacist critical care, ordering medications, tests, or procedures, referring and communicating with other health resident care manager, documenting clinical information in the electronic or other health record, independently interpreting results and communicating results to the patient/family/pharmacist critical care and care coordinating patient plan. Patient alert and oriented x 4 and aware of discussion noted above and in agreeance to plan in management of better controlled type 2 DM / insulin treated, hyperlipidemia, arthritis, obesity/weight management. Plan Of Treatment Medication Medication Name Sig Start Date Stop Date Notes Dexcom G7 Sensor - change sensor every 10 days for 90 days 05/19/2024 Treatment Notes Assessment Notes Other Assessment and Plan: 1. Hypertension- Patient reports high blood pressure readings at home, and blood pressure was high during the visit. The patient is currently on blood pressure medication and is being monitored by a food service driver.Plan: - Continue current blood pressure medication - Encourage patient to monitor blood pressure at home regularly and report any significant changes to the food service driver - Reinforce the importance of medication adherence 2. Type 2 Diabetes- Improved glycemic control with A1c in the sevens. Patient is currently on Basaglar and Humalog insulin.Plan: - Continue current insulin regimen (6 units Basaglar in the evening, 10 units in the morning, and 3 units Humalog with meals) - Encourage patient to monitor blood glucose levels regularly - Follow up in 2 months - per dexcom review in range 78% of time with no hypoglycemia- ranging from 72 mg/dL up to 230 mg/dL with average of 120 mg/dL-sugars have improved drastically only due to use of CGM and patient awareness and ability to react and provide insulin when necessary in safe administrative fashion 3. Dexcom sensor cost issue- Patient reports high cost of Dexcom sensors even with insurance coverage.Plan: - Resubmit prescription under long-term insulin use to see if insurance will cover more of the cost - Provide patient with samples if available 4. High estrogen levels- Patient reports a history of fibroids and a D&C in 2017 or 2018. Recent lab results show elevated estrogen levels.Plan: - Encourage patient to discuss high estrogen levels with their fan mail clerk and consider an ultrasound - Monitor for any symptoms related to high estrogen levels 5. Proteinuria- Patient is dumping a significant amount of protein in the urine but has normal kidney function (creatinine 0.99, filtration rate 72).Plan: - Continue monitoring kidney function - Consider referral to a manifold builder if proteinuria worsens or kidney function declines 6. Constipation- Patient reports chronic constipation and a history of a slipped disc and pinched nerve.Plan: - Recommend gail-ips-qwdzapm stool softeners or laxatives as needed - Encourage patient to maintain a high-fiber diet and stay hydrated - Follow up on the issue during the next visit 7. Possible autoimmune disease- Some lab results, such as neutrophil count, were abnormal, suggesting a possible autoimmune disease.Plan: - Order CHANDNI and rheumatoid factor tests for the next visit - Consider referral to a fire regulator if results are positive or symptoms worsen Spent 15 minutes preventative counseling patient on dietary recommendations and changes in setting of hyperglycemia- need to restrict refined sugars and processed foods and incorporate up to 150 minutes of moderate level activity weekly. Spent 25 minutes preparing to see the patient (ex review of tests/chart), obtaining and / or reviewing separately obtained history, performing a medically appropriate examination and/or evaluation, counseling and educating the patient/family/caregiver, ordering medications, tests, or procedures, referring and communicating with other health resident care manager, documenting clinical information in the electronic or other health record, independently interpreting results and communicating results to the patient/family/caregiver and care coordinating patient plan. Patient alert and oriented x 4 and aware of discussion noted above and in agreeance to plan in management of better controlled type 2 DM / insulin treated, hyperlipidemia, arthritis, obesity/weight management. Next Appt Details Follow Up: 2 Months, Reason: labwork Progress Notes * Rory CORBINaDOB: 0 (43 yo F)Acc No.[id number]:05/19/2024 Progress Notes Patient: Annemarie MATUTE Provider: Amy Llanos MD :1980 A ge:43 Y S ex:Female Date:05/19/2024 Address:[address] [facility] Subjective: * Chief Complaints: * 1 . Lab f/u lino. * HPI: I nterval Hx: 43 yo female comes in for follow up in management of better controlled type 2 DM (A1C of 7.2%), dyslipidemia, proteinuria, vit D def found to have elevated estrogen (ask about transvaginal imaging) At her initial visit in Apr she was given dexcom G7 sensors as she is on MDI therapy- advised she split her basaglar to 10 units in AM and 10 units HS with self titration instructions along with humalog 3-6 units prior to meals in addition to correction 1U:50>150 mg/dL on premeal sugars. Annemarie reports high blood pressure and improved blood sugar levels, currently in the sevens. She is on an insulin regimen of Basaglar and Humalog but faces high costs for continuous glucose monitoring sensors. She has a history of a heart attack, PMDD, fibroids, and a D&C procedure. Recent labs show elevated estrogen levels, proteinuria, and an abnormal neutrophil count suggesting a possible autoimmune disease. She also experiences constipation and urinary leakage. The plan includes continuing current medications, monitoring blood pressure and blood glucose, addressing sensor costs, and further evaluating high estrogen levels and potential autoimmune disease. The patient, Alana, reports that her blood pressure has been high, but she is unsure of the cause. She mentions that her blood sugar levels have improved, with her current levels in the sevens instead of the tens. Alana has been splitting her insulin doses and is currently taking six units of Lantus or Basaglar in the evening and 10 units in the morning. She also takes three units of Humalog with meals. She occasionally experiences hypoglycemia and has adjusted her Basaglar dose accordingly. Annemarie has not been able to use a continuous glucose monitoring sensor due to the high cost, even with insurance coverage. She has tried the Dexcom sensor and found it more comfortable when worn on her abdomen rather than her arm. She is unsure if her insurance will cover the Freestyle sensor. The patient reports taking blood pressure medication and monitoring her blood pressure at home, which she describes as being up and down. She has a history of a heart attack in July and has been diagnosed with PMDD. Annemarie has had a D and C procedure in either 2016 or 2018 due to fibroids and heavy bleeding. She recently saw her fan mail clerk, who performed a pelvic check and found no issues. Annemarie is currently taking cholesterol medication, and her cholesterol levels are within the normal range. She experiences constipation and has a history of a slipped disc and pinched nerve, which her urologist believes may contribute to her bowel issues. She also reports urinary leakage. * ROS: D ERMATOLOGY: no r azeem. n o c hange in color of moles. n o?lumps. n o d ry or sensitive skin. h tr y es, i tching. n o o eugene skin. n o a cne. n o m oles-irregular. n o m oles-change/new. n o b oils. n o d andruff. n o e xcessive body odor. n o p soriasis. n o f ungal infections. n o n ail problems. n o r edness/inflammation. n o a thlete's foot. n o s kin cancer. n o e czema. E NDOCRINOLOGY: fatigue y es. n o e xcessive sweating. n o e xcessive thirst. n o e xcessive urination. n o w eight loss. n o s leep disturbance. c old intolerance y es. h eat intolerence y es. n o t hyroid disease. n o i ncreased loss of hair. n o h x of borderline diabetes. n o d iabetes. n o a bdormal body hair. n o r heumatism. n o c hanges in skin texture.? N EUROLOGY: headache y es. t ingling numbness y es. n o?seizures. n o i nsomnia. n o m davonte loss. n o d izziness. n o g ait abnormality. n o c hange in sensation anywhere on body. n o l ocalized weakness or numbness. n o b lackouts or near blackouts. n o m igraine. n o t remors.?no f ainting spells. n o h ead injury. n o s troke. O PTHALMOLOGY: no d iminished vision. n o e ye irritation. n o?drainage from eyes. n o b lurring of vision. n o s easonal eye sx. n o?dander related eye sx. n o l oss of vision. n o c ataracts. n o g lasses/contacts. n o g laucoma. n o d etached retina. n o m acular degeneration.?no e ye redness. R ESPIRATORY: no s hortness of breath. n o c hest pain. n o?wheezing. n o a sthma. n o b reathlessness when lying flat. n o p rolonged cough. n o f requent infections (bronchitis). n o e mphysema. n o c hest congestion. n o s leep apnea. A LLERGY: no r unny nose. n o s cratchy throat. n o i tchy eyes. n o e ar fullness. n o s inus congestion. n o s tuffy nose. n o w atery eyes. n o s easonal allergies. n o h ay fever. n o a llergy.?no p olyps. n o s neezing. H EMATOLOGY/LYMPH: no s wollen glands. n o f atigue. n o l oss of appetite. n o e asy bruising. n o e asy bleeding. n o a nemia. ? U ROLOGY: no d ifficulty urinating. n o b lood in urine. u rinary urgency y es. n o f requent urination. u rinary incontinence y es. n o v oiding dysfunction. n o v ulvodynia. n o d ysparaunia. n o r ecurrent UTI. n o w eak flow. n o d ribbling after urination. n o f requent bladder infections. n o k idney stone. n o k idney disease. n o u rine hesitancy.?no p ainful urination. N UTRITION: greater than body requirmemts y es. L ess than body requirements y es. a ppropriate / adequate y es, y es. C ONSTITUTIONAL: no w eight gain. n o l oss of appetite. n o?fever. n o w eakness. n o w eight loss. n o n ight sweats. n o n ausea. n o v isual changes. n o c hange in sleep patterns. h +p reviewed y es, R OS form reviewed with patient see scan for detail. n o c hange in activity capacity.? E NT: no c old. n o c ough. n o c oughing blood.?no n ose bleed. n o h earing loss. n o c hange in voice. n o s ore throat. n o r inging in ears. n o s noring. n o e ar pain. n o r unny nose. n o w atery eyes. n o s inus infection. n o e ar infection. n o facial pain. n o h oarseness. n o g oiter. n o g um problems. n o?postnasal drip. n o f requent nosebleeds. C ARDIOLOGY: no c hest pain. n o p alpitations. n o l eg swelling. n o d izziness. n o s hortness of breath. n o v aricose veins.?no l eg cramps. n o c old hands or feet. n o h igh blood pressure. n o ankle swelling. n o c ardiac catheterization. n o h eart attacks. n o a ngina. n o m urmurs. n o l ow blood pressure. n o l eg pain that resolves w/rest. n o p urple fingers or lips. n o i rregular heart rate. n o c ongenital heart defects. n o d izziness when standing up quickly. n o a wakening at night short of breath. G ASTROENTEROLOGY: no n ausea. n o h eartburn. n o s tool incontinence. n o r eflux. n o a bdominal pain. n o i ndigestion. n o h emorrhoids. n o h iatal hernia. n o u lcers. n o a nal fissures. n o?hepatitis. n o g allstones. n o r ed blood after bowel movements. n o v omiting. n o b loating/belching. n o d ifficulty swallowing. n o d iarrhea.?constipation y es. n o c hange in bowel habits. n o b lood in stool. ? M USCULOSKELETAL: no j oint swelling. n o j oint pain. n o l eg cramps. j oint stiffness y es. n o a rthritis. b ack pain y es. n o?muscle aches. n o m orning stiffness. n o t endinitis. n o n audrey pain. no b ursitis. n o b one marrow biopsy. n o g out. a ctivity intolerance?weakness. n o f racture. P SYCHOLOGY: high stress level y es. d epression y es. n o?sleep disturbances. n o r russ sx worse with stress. n o s uicidal ideation. n o e ating disorder. n o m ental or physical abuse. a nxiety y es. n o h eadaches. d isease state y es. F EMALE REPRODUCTIVE: no h eavy periods. n o d ysparaunia. n o s exually active. p remenstrual syndrome y es. n o d ysmenorrhea. n o i nfertility. n o f requent yeast infections. n o v aginal itching. n o i ntermenstrual bleeding. n o p ost coital bleeding. n o p ostmenopausal bleeding. n o p elvic pain. n o m enstral cycle. n o v aginal discharge. n o v aginal dryness. n o o varian cysts. n o f ibroids. n o d ischarge from breast. n o abn. bleeding between cycles. n o p ostmenopausal symptoms. n o l oss of sexual interest. n o p ainful sexual intercourse. n o e ndometriosis. n o v aginal warts. n o a bnormal pap. n o i rregular periods. n o a bnormal vaginal discharge. n o h ot flashes. * Medical History: H ypertension, Type 2 diabetes, Depression, Anxiety, Asthma, Neuropathy, Spondylolisthesis. * Surgical History: t onsilectomy 1995, tubal ligation 2009, L knee arthroscopy 2014, gastric sleeve 2021, endometrial ablation 2013, D & C 2015, lipoma removal 2020. * Hospitalization/Major Diagno stic Procedure: c -section 2009, 1999, severe hypertension 2023. * Family History: F ather: asthma/COPD, diagnosed with Cancer. M other: osteoarthritis, diagnosed with Hypertension. S iblings: osteoarthritis, diagnosed with Diabetes, Hypertension. M aternal Grand Mother: diagnosed with Cancer, Diabetes. P aternal aunt: diagnosed with Diabetes. * Social History: S moking: no . R ecreational drug use: yes, marijuana. Alcohol: yes, socially. caffeine: yes. * Medications: T aking NIFEdipine , Taking Dorzolamide HCl , Taking Vitamin D , Taking Labetalol HCl 200 MG Tablet 1 tablet Orally Twice a day , Taking GVOKE HYPOPEN ONE PACK 1 MG/0.2 ML SOLUTION DIRECTED SUBCUTANEOUSLY ONCE NEEDED , Notes to Pharmacist: *Please review for potential replacement for e-prescription and drug interaction check*, Taking Vitamin D3 , Notes to Pharmacist: *Please review and pick correct strength-formulation from Cvergenx options. If intended option is not shown, discontinue and re-order from Quick Search*, Taking ALPRAZolam 1 MG Tablet 1 tab(s) orally every day , Taking traMADol HCl 50 MG Tablet 1 tab(s) orally every 6 hours As needed, Taking Meloxicam 15 MG Tablet 1 tab(s) orally once a day , Taking Gabapentin 300 MG Capsule 1 cap(s) orally twice a day , Taking Spironolactone 25 MG Tablet 1 tablet Orally once daily , Notes to Pharmacist: *Please review and pick correct strength-formulation from Cvergenx options. If intended option is not shown, discontinue and re-order from Quick Search*, Taking Jardiance(Empagliflozin) 25 MG Tablet 1 tab(s) orally once a day (in the morning) , Taking Cymbalta(DULoxetine HCl) 60 MG Capsule Delayed Release Particles 1 cap(s) orally once a day , Taking PROzac , Notes to Pharmacist: *Please review and pick correct strength-formulation from MZL Shine Cleaningspan options. If intended option is not shown, discontinue and re-order from Quick Search*, Taking Aspirin 81 MG Tablet Delayed Release 1 tab(s) orally once a day , Taking Losartan Potassium 100 MG Tablet 1 tablet Orally Once a day , Notes to Pharmacist: *Please review and pick correct strength-formulation from MZL Shine Cleaningspan options. If intended option is not shown, discontinue and re-order from Quick Search*, Taking Lipitor(Atorvastatin Calcium) 80 MG Tablet 1 tab(s) orally once a day , Taking HumaLOG(Insulin Lispro) 100 UNIT/ML Solution 3 units with meals Injection three times daily , Notes to Pharmacist: *Please review and pick correct strength-formulation from MZL Shine Cleaningspan options. If intended option is not shown, discontinue and re-order from Quick Search*, Taking Basaglar KwikPen(Insulin Glargine) 100 UNIT/ML Solution Pen-injector 10 units every morning and 6 units at night Subcutaneous , Notes to Pharmacist: *Please review and pick correct strength-formulation from Modular Patternsan options. If intended option is not shown, discontinue and re-order from Quick Search*, Not-Taking/PRN dexAMETHasone 1 MG Tablet 1 tab(s) orally at 10 pm night before 8 am cortisol , Medication List reviewed and reconciled with the patient * Allergies: S UMAtriptan, Bystolic, Irbesartan. Objective: * Vitals: H R: 112, BP: 174/116, Ht: 66, Wt: 225.0, BMI: 36.31. * P ast Orders: L ab:HEMOGLOBIN A1c (Order Date - 05/16/2024) (Collection Date & Time - 05/16/2024 09:27 AM) Value Reference Range HEMOGLOBIN A1c 7.2 H <5.7 - % of total Hg b L ab:CORTISOL, TOTAL (Order Date - 05/16/2024) (Collection Date & Time - 05/16/2024 09:24 AM) Value Reference Range CORTISOL, TOTAL 0.8 L - mcg/dL L ab:DEXAMETHASONE (Order Date - 05/16/2024) (Collection Date & Time - 05/16/2024 09:24 AM) L ab:MICROALBUMIN, RANDOM URINE (W/CREATININE) (Order Date - 05/16/2024) (Collection Date & Time - 05/16/2024 09:27 AM) Value Reference Range CREATININE, RANDOM URINE 58 20-275 - mg/dL MICROALBUMIN 62.7 See Note: - mg/dL MICROALBUMIN/CREATININE$RATIO, RANDOM URINE 1081 H <30 - mg/g creat L ab:T4, FREE (Order Date - 05/09/2024) (Collection Date & Time - 05/09/2024 12:23 PM) Value Reference Range T4, FREE 1.2 0.8-1.8 - ng/dL L ab:ACTH, PLASMA (Order Date - 05/09/2024) (Collection Date & Time - 05/09/2024 12:23 PM) Value Reference Range ACTH, PLASMA 7 6-50 - pg/mL L ab:CBC (INCLUDES DIFF/PLT) (Order Date - 05/09/2024) (Collection Date & Time - 05/09/2024 12:23 PM) Value Reference Range WHITE BLOOD CELL COUNT 3.7 L 3.8-10.8 - Th[place] nd/uL RED BLOOD CELL COUNT 4.26 3.80-5.10 - Million /uL HEMOGLOBIN 12.5 11.7-15.5 - g/dL HEMATOCRIT 38.1 35.0-45.0 - % MCV 89.4 80.0-100.0 - fL MCH 29.3 27.0-33.0 - pg MCHC 32.8 32.0-36.0 - g/dL RDW 13.0 11.0-15.0 - % PLATELET COUNT 236 140-400 - Thousand/u L NEUTROPHILS 31.1 - % ABSOLUTE NEUTROPHILS 1151 L 6328-2055 - cells/u L LYMPHOCYTES 52.4 - % ABSOLUTE LYMPHOCYTES 6476 930-0420 - cells/uL MONOCYTES 10.0 - % ABSOLUTE MONOCYTES 370 200-950 - cells/uL EOSINOPHILS 5.7 - % ABSOLUTE EOSINOPHILS 211 15-500 - cells/uL BASOPHILS 0.8 - % ABSOLUTE BASOPHILS 30 0-200 - cells/uL MPV 10.9 7.5-12.5 - fL L ab:IRON AND TOTAL IRON BINDING CAPACITY (Order Date - 05/09/2024) (Collection Date & Time - 05/09/2024 12:23 PM) Value Reference Range IRON, TOTAL 54 40-190 - mcg/dL IRON BINDING CAPACITY 272 250-450 - mcg/dL ( calc) % SATURATION 20 16-45 - % (calc) L ab:T3, FREE (Order Date - 05/09/2024) (Collection Date & Time - 05/09/2024 12:23 PM) Value Reference Range T3, FREE 3.3 2.3-4.2 - pg/mL L ab:TESTOSTERONE, FREE (DIALYSIS) AND TOTAL,MS (Order Date - 05/09/2024) (Collection Date & Time - 05/09/2024 12:23 PM) Value Reference Range TESTOSTERONE, TOTAL, MS 19 2-45 - ng/dL TESTOSTERONE, FREE 1.5 0.1-6.4 - pg/mL L ab:TSH (Order Date - 05/09/2024) (Collection Date & Time - 05/09/2024 12:23 PM) Value Reference Range TSH 2.87 - mIU/L L ab:MAGNESIUM (Order Date - 05/09/2024) (Collection Date & Time - 05/09/2024 12:23 PM) Value Reference Range MAGNESIUM 1.9 1.5-2.5 - mg/dL L ab:VITAMIN B12/FOLATE, SERUM PANEL (Order Date - 05/09/2024) (Collection Date & Time - 05/09/2024 12:23 PM) Value Reference Range FOLATE, SERUM 15.0 - ng/mL VITAMIN B12 487 750-8199 - pg/mL L ab:LH (Order Date - 05/09/2024) (Collection Date & Time - 05/09/2024 12:23 PM) Value Reference Range LH 10.4 - mIU/mL L ab:VITAMIN D, 25-HYDROXY, LC/MS/MS (Order Date - 05/09/2024) (Collection Date & Time - 05/09/2024 12:23 PM) Value Reference Range VITAMIN D, 25-OH, TOTAL 29 L 30-100 - ng/mL L ab:FSH (Order Date - 05/09/2024) (Collection Date & Time - 05/09/2024 12:23 PM) Value Reference Range FSH 9.5 - mIU/mL L ab:COMPREHENSIVE METABOLIC PANEL (Order Date - 05/09/2024) (Collection Date & Time - 05/09/2024 12:23 PM) Value Reference Range GLUCOSE 47 L 65-99 - mg/dL UREA NITROGEN (BUN) 15 7-25 - mg/dL CREATININE 0.99 0.50-0.99 - mg/dL BUN/CREATININE RATIO SEE NOTE: 6-22 - (calc) SODIUM 138 135-146 - mmol/L POTASSIUM 3.8 3.5-5.3 - mmol/L CHLORIDE 105 98-110 - mmol/L CARBON DIOXIDE 29 20-32 - mmol/L CALCIUM 8.3 L 8.6-10.2 - mg/dL PROTEIN, TOTAL 6.1 6.1-8.1 - g/dL ALBUMIN 3.6 3.6-5.1 - g/dL GLOBULIN 2.5 1.9-3.7 - g/dL (calc ) ALBUMIN/GLOBULIN RATIO 1.4 1.0-2.5 - (calc) BILIRUBIN, TOTAL 0.3 0.2-1.2 - mg/dL ALKALINE PHOSPHATASE 89 31-125 - U/L AST 12 10-30 - U/L ALT 11 6-29 - U/L EGFR 72 > OR = 60 - mL/min/1.73m2 L ab:LIPID PANEL (Order Date - 05/09/2024) (Collection Date & Time - 05/09/2024 12:23 PM) Value Reference Range TRIGLYCERIDES 47 <150 - mg/dL CHOLESTEROL, TOTAL 137 <200 - mg/dL HDL CHOLESTEROL 67 > OR = 50 - mg/dL LDL-CHOLESTEROL 57 - mg/dL (calc) CHOL/HDLC RATIO 2.0 <5.0 - (calc) NON-HDL CHOLESTEROL 70 <130 - mg/dL (calc) L ab:DHEA SULFATE (Order Date - 05/09/2024) (Collection Date & Time - 05/09/2024 12:23 PM) Value Reference Range DHEA SULFATE 52 15-205 - mcg/dL L ab:PROGESTERONE (Order Date - 05/09/2024) (Collection Date & Time - 05/09/2024 12:23 PM) Value Reference Range PROGESTERONE <0.5 - ng/mL L ab:ESTRADIOL (Order Date - 05/09/2024) (Collection Date & Time - 05/09/2024 12:23 PM) Value Reference Range ESTRADIOL 483 H - pg/mL * Examination: G eneral Examination: General n ormal, NAD, well nourished and hydrated, pleasant overweight female. Neck, thyroid : s upple. Heart: B P wnl, RSR, no murmurs. Lungs: n ormal, respirations easy with conversation and ambulation. Abdomen: n ormal, round, non-distended. Neurologic exam: u nremarkable. Extremities: u nremarkable. Peripheral pulses: n ormal (2+) bilaterally . Psych: o rientation to person, place & situation, appropriate judgment noted. Assessment: * Assessment: 1. T ype 2 diabetes mellitus with hyperglycemia - E11.65 (Primary) 2 . H yperlipidemia, unspecified - E78.5 3 . O ther fatigue - R53.83 4 .?Polyarthritis, unspecified - M13.0 5 . L ирина term (current) use of insulin - Z79.4 6 . O besity, unspecified - E66.9 7 . D ietary counseling and surveillance - Z71.3 Plan: * Treatment: 2. O thers Notes:Assessment and Plan: 1. Hypertension- Patient reports high blood pressure readings at home, and blood pressure was high during the visit. The patient is currently on blood pressure medication and is being monitored by a food service driver.Plan: - Continue current blood pressure medication - Encourage patient to monitor blood pressure at home regularly and report any significant changes to the food service driver - Reinforce the importance of medication adherence 2. Type 2 Diabetes- Improved glycemic control with A1c in the sevens. Patient is currently on Basaglar and Humalog insulin.Plan: - Continue current insulin regimen (6 units Basaglar in the evening, 10 units in the morning, and 3 units Humalog with meals) - Encourage patient to monitor blood glucose levels regularly - Follow up in 2 months - per dexcom review in range 78% of time with no hypoglycemia- ranging from 72 mg/dL up to 230 mg/dL with average of 120 mg/dL-sugars have improved drastically only due to use of CGM and patient awareness and ability to react and provide insulin when necessary in safe administrative fashion 3. Dexcom sensor cost issue- Patient reports high cost of Dexcom sensors even with insurance coverage.Plan: - Resubmit prescription under long-term insulin use to see if insurance will cover more of the cost - Provide patient with samples if available 4. High estrogen levels- Patient reports a history of fibroids and a D&C in 2017 or 2018. Recent lab results show elevated estrogen levels.Plan: - Encourage patient to discuss high estrogen levels with their fan mail clerk and consider an ultrasound - Monitor for any symptoms related to high estrogen levels 5. Proteinuria- Patient is dumping a significant amount of protein in the urine but has normal kidney function (creatinine 0.99, filtration rate 72).Plan: - Continue monitoring kidney function - Consider referral to a manifold builder if proteinuria worsens or kidney function declines 6. Constipation- Patient reports chronic constipation and a history of a slipped disc and pinched nerve.Plan: - Recommend [id number] stool softeners or laxatives as needed - Encourage patient to maintain a high-fiber diet and stay hydrated - Follow up on the issue during the next visit 7. Possible autoimmune disease- Some lab results, such as neutrophil count, were abnormal, suggesting a possible autoimmune disease.Plan: - Order CHANDNI and rheumatoid factor tests for the next visit - Consider referral to a fire regulator if results are positive or symptoms worsen Spent 15 minutes preventative counseling patient on dietary recommendations and changes in setting of hyperglycemia- need to restrict refined sugars and processed foods and incorporate up to 150 minutes of moderate level activity weekly. Spent 25 minutes preparing to see the patient (ex review of tests/chart), obtaining and / or reviewing separately obtained history, performing a medically appropriate examination and/or evaluation, counseling and educating the patient/family/caregiver, ordering medications, tests, or procedures, referring and communicating with other health resident care manager, documenting clinical information in the electronic or other health record, independently interpreting results and communicating results to the patient/family/caregiver and care coordinating patient plan. Patient alert and oriented x 4 and aware of discussion noted above and in agreeance to plan in management of better controlled type 2 DM / insulin treated, hyperlipidemia, arthritis, obesity/weight management. * Procedure Codes: 9 5250 GLUCOSE MONITORING, CONT, 68669 P/M EMERGENCY MAN, INDIV 15 MIN, G2211 Complex e/m visit add on * Follow Up: 2 Months (Reason: labwork) * Billing Information: * Visit Code: 85152 Office Visit, Est Pt., Level 4. * Procedure Codes: 04462 GLUCOSE MONITORING, CONT. 00874 P/M EMERGENCY MAN, INDIV 15 MIN. G2211 Complex e/m visit add on. * ER MACHINE OPERATOR Sign off status: Completed true * Provider: Amy Llanos MD Date: 1 07/20/2023 Generated for Printi ng/Faxing/eTransmitting on: 0 08/21/2024 01:04 PM CDT History and Physical Notes * HPI (History of Present Illness) Category Sub-Category Detail Notes Category Not es Interval Hx 43 yo female comes in for follow up in management of better controlled type 2 DM (A1C of 7.2%), dyslipidemia, proteinuria, vit D def found to have elevated estrogen (ask about transvaginal imaging) At her initial visit in Apr she was given dexcom G7 sensors as she is on MDI therapy- advised she split her basaglar to 10 units in AM and 10 units HS with self titration instructions along with humalog 3-6 units prior to meals in addition to correction 1U:50>150 mg/dL on premeal sugars. Annemarie reports high blood pressure and improved blood sugar levels, currently in the sevens. She is on an insulin regimen of Basaglar and Humalog but faces high costs for continuous glucose monitoring sensors. She has a history of a heart attack, PMDD, fibroids, and a D&C procedure. Recent labs show elevated estrogen levels, proteinuria, and an abnormal neutrophil count suggesting a possible autoimmune disease. She also experiences constipation and urinary leakage. The plan includes continuing current medications, monitoring blood pressure and blood glucose, addressing sensor costs, and further evaluating high estrogen levels and potential autoimmune disease. The patient, Alana, reports that her blood pressure has been high, but she is unsure of the cause. She mentions that her blood sugar levels have improved, with her current levels in the sevens instead of the tens. Alana has been splitting her insulin doses and is currently taking six units of Lantus or Basaglar in the evening and 10 units in the morning. She also takes three units of Humalog with meals. She occasionally experiences hypoglycemia and has adjusted her Basaglar dose accordingly. Annemarie has not been able to use a continuous glucose monitoring sensor due to the high cost, even with insurance coverage. She has tried the Dexcom sensor and found it more comfortable when worn on her abdomen rather than her arm. She is unsure if her insurance will cover the Freestyle sensor. The patient reports taking blood pressure medication and monitoring her blood pressure at home, which she describes as being up and down. She has a history of a heart attack in July and has been diagnosed with PMDD. Annemarie has had a D and C procedure in either 2017 or 2018 due to fibroids and heavy bleeding. She recently saw her fan mail clerk, who performed a pelvic check and found no issues. Annemarie is currently taking cholesterol medication, and her cholesterol levels are within the normal range. She experiences constipation and has a history of a slipped disc and pinched nerve, which her urologist believes may contribute to her bowel issues. She also reports urinary leakage. Examination Category Sub-Category Detail Notes Category Not es General Examination Neck, thyroid : supple Heart: BP wnl, RSR, no murm urs Lungs: normal, respirations easy with conversation and ambulation Abdomen: normal, round, non-d istended Extremities: unremarkable General normal, NAD, well no urished and hydrated, pleasant overweight female Neurologic exam: unremarkable Peripheral pulses: normal (2+) bilatera lly Psych: orientation to perso n, place & situation, appropriate judgment noted
--- OUTSIDE RECORDS SUMMARY | 2024-08-21 13:05 | XMS_ITS ---
Author Organization [facility] Address [address] [facility] [address] [place] [address] Care Team Providers Care Technical Sales Support Manager Name Role Phone Simón Mcdonough MD Primary Care Provider Unavail Rubin London Unavailable [phone] Vipul Davis Unavailable Unavailable REASON FOR VISIT Call back MEDICATIONS Medication SIG (Take, Route, Frequency, Duration) Notes Start Date End Date Status Cyclobenzaprine HCl 10 MG take 1 tablet Orally three times daily. MAY CAUSE DROWSINESS for 30 days Active traMADol HCl 50 MG 1 tablet as needed O rally every 4-6 hours. TAKE AT HOME FIRST BEFORE DRIVING ON MED for 10 days 08/10/2024 Active Encounters Encounter Location Date Provider Diagnosis [facility] [address] [address] 08/10/2024 Rubin Watson PLAN OF TREATMENT Medication Medication Name Sig Start Date Stop Date Notes Cyclobenzaprine HCl 10 MG take 1 tablet Orally three times daily. MAY CAUSE DROWSINESS for 30 days traMADol HCl 50 MG 1 tablet as needed O rally every 4-6 hours. TAKE AT HOME FIRST BEFORE DRIVING ON MED for 10 days 08/10/2024 Next Appt Details Provider Name:Rubin Andersen ot, 09/18/2024 11:50:00 AM, [address], [facility] [address], [place], [address],
--- OUTSIDE RECORDS SUMMARY | 2024-08-21 13:05 | XMS_ITS ---
Author Organization [facility] Address [address] [place] [address] Care Team Providers Care Analytical Consultant Name Role Phone Simón Mcdonough MD Primary Care Provider Unavail able Rubin Watson Unavailable [phone] Vipul Davis Unavailable Unavailable ALLERGIES Allergen (clinical drug ingredient) Drug/Non Drug Allergy documented on EMR Reaction Allergy Type Onset Date Status angiotensin-converting enzyme inhibitor (FN) ARCELIA Inhibitors Unknown Drug Allergy Acti ve irbesartan Irbesartan Unknown Drug Allergy Activ e Imitrex Unknown Drug Allergy Active nebivolol Bystolic Unknown Drug Allergy Active RESULTS Component Value Reference Range Notes X ray : Lumbar Spine 3 views , AP, Lateral, Spot Reviewed date:08/07/2024 12:24:05 PM Interpretation:[id number] Performing Lab: Notes/Report: 1117 REASON FOR VISIT post op MEDICATIONS Medication SIG (Take, Route, Frequency, Duration) Notes Start Date End Date Status traMADol HCl 50 MG 1 tablet as needed Orally every 4-6 hours. TAKE AT HOME FIRST BEFORE DRIVING ON MED for 10 days 07/07/2024 Not-Taking oxyCODONE-Acetaminophen 7.5-325 MG 1 tablet as needed Orally every 6 hrs for 7 days 07/31/2024 Active metFORMIN HCl Not-Ta priscila Sulfamethoxazole-Trimeth oprim 800-160 MG 1 tablet Orally twice daily for 7 days 08/07/2024 Active Cyclobenzaprine HCl 10 MG take 1 tablet Orally three times daily. MAY CAUSE DROWSINESS for 30 days Active ASA 81 Mg Active Meloxicam Active ALPRAZolam Active Labetalol HCl Active NIFEdipine Active Losartan Potassium A ctive Albuterol Active Atorvastatin Calcium Active Spironolactone Activ e Jardiance Active HumaLOG Active Tylenol Active Gabapentin 300 Mg BID Active Calcium + D Active Dorzolamide HCl Acti ve VITAL SIGNS BMI 33.89 kg/m2 08/07/2024 Height 66 in 08/07/2024 Temperature 97.5 degrees Fahrenheit 08/08/19 25 Weight 210 lbs 08/07/2024 Encounters Encounter Location Date Provider Diagnosis [facility] [address] [facility] [address] [place] [address] 08/07/2024 Rubin Watson PLAN OF TREATMENT Medication Medication Name Sig Start Date Stop Date Notes Sulfamethoxazole-Trimethopri m 800-160 MG 1 tablet Orally twice daily for 7 days 08/07/2024 Next Appt Details Provider Name:Rubin Andersen ot, 09/18/2024 11:50:00 AM, [address], [address], [place], [address],
--- OUTSIDE RECORDS SUMMARY | 2024-08-21 13:05 | XMS_ITS | Continuity of Care Document ---
Author Organization [facility] Address [address] [place] [address] [address] [place] [address] Phone Care Team Providers Care Design Engineer Agricultural Equipment Name Role Phone Rickey Mckinnon DO Unavailable Unavailable Advance Directives Directive Yes / No Effective Date File Name No Information Encounters Encounter Description Practice Location Reason(s) For Visit Diagnoses Date Provider Providers Copied on Encounter [facility], [address], [place], [place], [address], [place] tel:[phone] [facility] No Information Pratibha Bustos. [address] [place], [address], [place]. tel: [phone] Family History Family Member Type Diagnosis Age At Onset No Information Payers Payer name Insurance type Covered green party ID Authoriza tion(s) Medicaid [facility] [id number] Social History Type Description Quantity Date Captured [...]
--- OUTSIDE RECORDS SUMMARY | 2024-08-21 13:05 | XMS_ITS | Clinical Summary ---
Author Organization [facility] Address [facility] [place] [address] Care Team Providers Care Annealing Furnace Tender Name Role Phone Simón Mcdonough MD Primary Care Provider + [phone] Allergies Active Allergy Reactions Criticality Noted Date [...] Date Diagnosed Date Neuropathy 03/30/2024 Diabetes mellitus ([facility]) 10/20/2023 Hypertension complicating ([facility]) TIA (transient ischemic attack) 07/19/2023 Hypertension 07/19/2023 Hypertensive urgency 07/15/2023 Anxiety and depression 11/24/2021 Morbid obesity with body mass index of 40.0-49.9 11/24/2021 TANNA (obstructive sleep apnea) 11/24/2021 Other hyperlipidemia 11/24/2021 Resolved Problems Problem Noted Date Diagnosed Date Resolved Date CVA (cerebral vascular accid ent) ([facility]) 07/14/2023 07/15/2023 Encounters Date Type Department Care Team Description 06/30/2024 Telephone [facility] [address] Cyndi Bearden MD Surgical Clearance from Last 3 Months Immunizations Name Administration [...] drink = 0.6 oz pur e alcohol) [facility] Utilities Answer Date Recorded In the past 12 months has e [email or web address], gas, oil, or water [employer] threatened to shut off services in your [...] week 07/15/2023 How often do you attend [facility] or pentecostal services? More than 4 times per year 07/15/2023 Do you belong to any clubs o r organizations such as scientologist groups, unions, fraternal or athletic groups, or [...] Recorded Patient Health Questionnaire-2 Score 0 07/15/2023 [facility] [place] [facility] Occupat ional [facility] - Occupational Stress [...] place to sleep or slept in a mcc (including now)? No 07/15/2023 Comments Unknown Sex and Gender Information Value Date Recorded Sex Assigned at Not on file Legal Sex Female 4:52 PM CDT Gender Identity Not on file Sexual Orientation Not on file Last Filed Vital Signs Vital Sign Reading Time Taken Comments Blood Pressure 98/68 04/03/2024 10:03 AM CDT Pulse 75 04/03/2024 10:03 AM CDT Temperature 36.3 C (97.3 F) 07/16/2023 5:40 AM SHELL SIEVE OPERATOR Respiratory Rate 16 07/16/2023 8:35 AM SHELL SIEVE OPERATOR Oxygen Saturation 97% 04/03/2024 10:03 AM CDT Inhaled Oxygen Concentration - - Weight 102.1 kg (225 lb) 04/03/2024 10:03 AM CDT Height 167.6 cm (5' 6 ) 04/03/2024 10:03 AM CDT Body Mass Index 36.32 04/03/2024 10:03 AM CDT Plan of Treatment Upcoming Encounters Date Type Department Care Team (Late st Contact Info) Description 10/02/2024 10:30 AM CDT Office Visit [facility] [facility], [address] [place], [place] [id number] Cyndi Bearden MD [facility] [address] [place], [place] [id number] Health Maintenance Due Date Last Done Comments Cervical Cancer Screening Pa p Smear (Age 30 to 64) Every 3 Years 1980 Colorectal Cancer Screening Colonoscopy (10 Years) 1980 Kidney Health Evaluation 1980 Annual Physical [...] Td or Tdap) 10/30/2019 10/29/2009 COVID-19 Vaccine (3 - 2023-2 5 season) 2024 05/15/2021, 09/10/2020 Influenza Adult (#1) 2024 03/27/2023, 03/26/2021 Hemoglobin A1C 05/25/2024 02/24/2024, 07/14/2023 Lipid Panel 02/23/2025 02/24/2024, 07/14/2023 HPV Vaccines Aged Out No longer eligi ble based on patient's age to complete this topic Meningococcal B Vaccine Aged Out No l onger eligible based on patient's age to complete [...] discharge from hospital Lifestyle No Jayla Garcia, CLERICAL ADJUSTER Procedures Procedure Name Priority Date/Time Associated Diagnosis [...] 10:44 PM 07/16/2023 1:11 PM Care Teams Annealing Furnace Tender Relationship Specialty Start Date End Date Simón Mcdonough MD PCP - General 11/15/14
--- OUTSIDE RECORDS SUMMARY | 2024-08-21 13:05 | XMS_ITS | Continuity of Care Document ---
Author Organization [email or web address] Address [address] [place] [address] Phone Care Team Providers Care Risk Control Director Name Role Phone Vipul Santo MD Unavailable [...] Diagnoses Date Provider Providers Copied on Encounter [address] [employer], [address], [place], [place], [address], [place] tel:[phone] [facility] No Information Hansa Matthew. [address], [place], [place], [address], [place]. tel:[phone] Referring Provider: Rubin Watson DO, [address], [place], [address]. tel:[phone] [employer], [address], [place], [place], [id number], tel:[phone] [facility] No Information Tiffanie Sharma. [address], [place], [place], [address], . tel:[phone] Referring Provider: Rubin Watson DO, [address], [place], [address]. tel:[phone] Family History Family Member Type Diagnosis Age At Onset No Information Payers Payer name Insurance type Covered republican ID Authorshabnam pugh(s) [facility] [id number] Social History Type Description Quantity Date Captured [...]
--- OUTSIDE RECORDS SUMMARY | 2024-08-21 13:06 | XMS_ITS ---
Author Organization [facility] Address [address] [address] Care Team Providers Care Dust Puller Name Role Phone Jayne Llanos Primary Care Provider REASON FOR VISIT 2 month f/u lino Encounters Encounter Location Date Provider Diagnosis [facility], [facility] - Jayne Llanos [address] [place] [address] 07/21/2024 Jayne Llanos Plan Of Treatment No Information Progress Notes * Rory CORBINSailajaB: 0 (44 yo F)Acc No.[id number]:07/21/2024 Progress Notes Patient: Annemarie MATUTE Provider: Amy Llanos MD :1980 A ge:44 Y S ex:Female Date:07/21/2024 Address:[address] [facility] Subjective: * Chief Complaints: * 1 . 2 month f/u lino. * Medical History: Objective: * Vitals: Assessment: Plan: * Treatment: * Billing Information: * Visit Code: * Procedure Codes: * Electronic signature of Ramos Llanos MD on 08/21/2024 at 01:06 PM CDT Sign off status: Pending * Provider: Amy Llanos MD Date: 07/21/2024 Generated for Ac ng/[employer]/eTransmitting on: 0 08/21/2024 01:06 PM CDT
--- OUTSIDE RECORDS SUMMARY | 2024-08-21 13:06 | XMS_ITS ---
Author Organization [employer] [facility] Address [address] [place] [address] Care Team Providers Care Audio Director Name Role Phone Jayne Llanos Primary Care Provider REASON FOR VISIT estradiol Encounters Encounter Location Date Provider Diagnosis [facility] - Jayne Llanos [address] [place] [address] 05/24/2024 Jayne Llanos Plan Of Treatment No Information Progress Notes * Nanci CORBINB: 0 (43 yo F)Acc No.[id number]:05/24/2024 Patient: Annemarie MATUTE :1980 A ge:43 Y S ex:Female Address:[address] [place], [address] * true * Date: Generated for Printi ng/Faxing/eTransmitting on: 0 08/21/2024 01:06 PM CDT
--- OUTSIDE RECORDS SUMMARY | 2024-08-21 13:06 | XMS_ITS | Patient Health Record ---
Author Organization [facility] Address [address] [place] [address] Care Team Providers Care Beef Specialist Name Role Phone Simón Mcdonough MD Primary Care Provider Unavail able Rubin Watson Unavailable [phone] Vipul Davis Unavailable Unavailable Yulissa Mazariegos Unavailable [phone] ALLERGIES Allergen (clinical drug ingredient) Drug/Non Drug Allergy documented on EMR Reaction Allergy Type Onset Date Status angiotensin-converting enzyme inhibitor (FN) ARCELIA Inhibitors Unknown Drug Allergy Acti ve irbesartan Irbesartan Unknown Drug Allergy Activ e Imitrex Unknown Drug Allergy Active nebivolol Bystolic Unknown Drug Allergy Active RESULTS Component Value Reference Range Notes CT Lumbar Spine with Sagitta l and Coronal Reconstruction Reviewed date:02/23/2024 09:48:43 AM Interpretation:approved Performing Lab: Notes/Report: approved EMG, NCV, Bilateral, Lower E xtremity, Consultative EDX & Evaluate Symptoms Reviewed date:07/25/2024 10:22:31 AM Interpretation:anthem ins Performing Lab: Notes/Report: anthem ins DEXA Hip and Spine Reviewed date:06/02/2024 12:00:48 PM Interpretation:bcbs [place] Performing Lab: Notes/Report: bcbs il X ray : Lumbar spine 5 views , AP, Lateral, Spot, Flexion and Extension Reviewed date:05/29/2024 12:26:06 PM Interpretation:1148 Performing Lab: Notes/Report: 1148 X ray : Cervical Spine 7 vie ws, AP, Lateral, Swimmers, Obliques, Flexion and Extension Reviewed date:07/07/2024 12:01:09 PM Interpretation:938 Performing Lab: Notes/Report: 938 EMG, NCV, Bilateral, Upper E xtremity, Consultative EDX & Evaluate Symptoms Reviewed date:07/25/2024 03:48:02 PM Interpretation:BCBS INS Performing Lab: Notes/Report: BCBS INS X ray : Knee 3 views L, AP,L Familia mosley Reviewed date:07/24/2024 02:41:00 PM Interpretation:207 Performing Lab: Notes/Report: 207 CT Cervical Spine with Sagit corby and Coronal Reconstruction Reviewed date:07/25/2024 03:47:51 PM Interpretation:bcbs pended Performing Lab: Notes/Report: bcbs pended CT: Head Reviewed date:07/25/2024 03:47:56 PM Interpretation:bcbs approved Performing Lab: Notes/Report: bcbs approved X ray : Lumbar Spine 3 views , AP, Lateral, Spot Reviewed date:08/07/2024 12:24:05 PM Interpretation:1117 Performing Lab: Notes/Report: 1117 REASON FOR REFERRAL Reason Eval and treat. Blad navid issues Referral Organization [facility] Referring Provider First Name Rubin Referring Provider Last Name Walter Referring Provider Speciality Orthopedic Surgery Referred Provider Shama Patel Referred Provider Specialty Urology Referral Priority Routine Reason DIAGNOSES: s/p L4-S1 LDL's, L5-S1 TLIF 3 times per week for 3 weeks eval and treat, exercise, modalities per therapist's discretion; HEP Referral Organization [facility] Referring Provider First Name Rubin Referring Provider Last Name Walter Referring Provider Speciality Orthopedic Surgery Referred Provider Specialty Physical The rapy Referral Priority Routine MEDICATIONS Medication SIG (Take, Route, Frequency, Duration) Notes Start Date End Date Status Tylenol Active ALPRAZolam Active HumaLOG Active Meloxicam Active ASA 81 Mg Active Losartan Potassium A ctive metFORMIN HCl Not-Ta prisclia Spironolactone Activ e tiZANidine HCl 4 MG 1 tablet Orally three times daily as needed for spasms. MAY CAUSE DROWSINESS/GROGGINE SS for 30 day(s) 08/14/2024 Active Atorvastatin Calcium Active Albuterol Active traMADol HCl 50 MG 1 tablet as needed Orally every 4-6 hours. 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 Spondylolysis (090177204) Problem Spondylolisthesis of lumbar region (M43.16) Active confirmed Acquired spondylolisthesis (581742603) Problem DDD (degenerative disc disease), lumbar (M51.36) Active confirmed Degenerative disc disease (83374557) Problem Facet degeneration of lumbar region (M47.816) Active confirmed Lumbosacral spondylosis without myelopathy (70269871) Problem Diabetes mellitus (E11.9) Active confirmed Diabetes mellit us (73968590) Problem Obesity (E66.9) Active confirmed Obesit y (621591357) Problem Osteoporosis (M81.0) Active confirmed Osteoporosis (24786766) Problem Ataxia (R27.0) Active confirmed Ataxia (90242698) Problem Right radial nerve palsy (G56.31) Active confirmed Right radial nerve palsy (06381565168270961) Problem Spondylolisthesis, lumbosacral region (M43.17) Active confirmed Acquired spondylolisthesis (370512979) Problem Displacement of intervertebral disc of lumbar region (M51.26) Active confirmed Displacement of lumbar intervertebral disc without myelopathy (91033824) VITAL SIGNS Temperature 98.0 degrees Fahrenheit 08/14/2024 Height 66 in 08/14/2024 Weight 210 lbs 08/14/2024 BMI 33.89 kg/m2 08/14/2024 PROCEDURES Procedure Date Ordered Date Performed Result Body Sit e Lumbar Selective Nerve Root Injection 02/03/2024 02/17/2024 bcbs [place] Lumbar Selective Nerve Root Injection 05/29/2024 06/01/2024 approved lumbar fusion 05/29/2024 08/01/2024 QMF- [place] -approved Encounters Encounter Location Date Provider Diagnosis [facility] [address] [place] [address] 02/03/2024 Rubin Watson Lumbar radicular janis n M54.16 ; Spondylolisthesis of lumbar region M43.16 ; DDD (degenerative disc disease), lumbar M51.36 ; Facet degeneration of lumbar region M47.816 ; Diabetes mellitus E11.9 and Obesity E66.9 [facility], [address] [address] 08/14/2024 Rubin Watson [facility], [address] [place] [address] 08/07/2024 Rubin Watson [facility], [address] [place] [address] 03/15/2024 Rubin Watson Lumbar radiculopathy M54.16 ; Facet degeneration of lumbar region M47.816 ; Spondylolisthesis of lumbar region M43.16 ; Lumbar discogenic back pain only M51.360 ; Diabetes mellitus E11.9 and Obesity E66.9 [facility], [address] [place] [address] 05/29/2024 Rubin Watson Lumbar stenosis with neurogenic claudication M48.062 ; Lumbar radiculopathy M54.16 ; Other low back pain M54.59 ; Spondylolisthesis of lumbar region M43.16 ; Disc Degeneration, Lumbar Region with Leg Pain M51.361 and Facet degeneration of lumbar region M47.816 [facility], [address] [place] [address] 07/07/2024 Rubin Watson Cervical radiculopat hy M54.12 ; Arm weakness R29.898 ; Lumbar radiculopathy M54.16 ; Disc Degeneration, Lumbar Region with Leg Pain M51.361 ; Lumbar stenosis with neurogenic claudication M48.062 ; Spondylolisthesis of lumbar region M43.16 ; Facet degeneration of lumbar region M47.816 and Diabetes mellitus E11.9 [facility], [address] [address] 07/24/2024 Rubin Watson Ataxia R27.0 ; Spondylolisthesis of lumbar region M43.16 ; Lumbar stenosis with neurogenic claudication M48.062 ; Contusion of knee, left S80.02XA ; Knee pain, left M25.562 ; Right radial nerve palsy G56.31 ; Other low back pain M54.59 and Herniation of lumbar intervertebral disc with radiculopathy M51.16 [facility] [address] [place] [address] 08/01/2024 Rubin Watson [facility] [address] [place] [address] 08/01/2024 Yulissa Mazariegos [facility] [address] [place] [address] 02/17/2024 Rubin Watson [facility] [address] [place] [address] 03/30/2024 Rubin Watson [facility] [address] [place] [address] 06/02/2024 Rubin Watson [facility] [address] [place] [address] 06/19/2024 Rubin Watson [facility] [address] [place] [address] 2024 Rubin Watson [facility] [address] [address] 07/18/2024 Rubin Watson [facility] [address] [place] [address] 07/25/2024 Rubin Watson [facility] [address] [place] [address] 07/25/2024 Rubin Watson [facility] [address] [place] [phone] 07/28/2024 Rubin Watson [facility] [address] [place] [address] 07/31/2024 Rubin Watson [facility] [address] [place] [address] 08/10/2024 Rubin Watson [facility] [address] [place] [address] 02/17/2024 Rubin Watson Spondylolisthesis of lumbar region M43.16 ; DDD (degenerative disc disease), lumbar M51.36 ; Facet degeneration of lumbar region M47.816 ; Diabetes mellitus E11.9 ; Lumbar radiculopathy M54.16 and Obesity E66.9 [facility], [address] [place] [address] 02/16/2024 Rubin Watson [facility], [address] [facility] [address] [place] [address] 04/21/2024 Rubin Watson Spondylolisthesis of lumbar region M43.16 ; Lumbar stenosis with neurogenic claudication M48.062 ; Osseous and subluxation stenosis of intervertebral foramina of lumbar region M99.63 ; Other low back pain M54.59 ; Disc Degeneration, Lumbar Region with Leg Pain M51.361 and Facet degeneration of lumbar region M47.816 ASSESSMENTS Encounter Date Diagnosis Assessment Notes Treatment Notes Treatment Clinical Notes 02/03/2024 Lumbar radicular janis n (ICD-10 - M54.16) 02/03/2024 Spondylolisthesis of lumbar region (ICD-10 - M43.16) 03/15/2024 Lumbar radiculopathy (ICD-10 - M54.16) 03/15/2024 Facet degeneration o f lumbar region (ICD-10 - M47.816) 05/29/2024 Lumbar stenosis with neurogenic claudication (ICD-10 - M48.062) 07/07/2024 Cervical radiculopat hy (ICD-10 - M54.12) 07/07/2024 Arm weakness (ICD-10 - R29.898) 07/24/2024 Ataxia (ICD-10 - R27.0) 07/24/2024 Spondylolisthesis of lumbar region (ICD-10 - M43.16) 02/17/2024 Spondylolisthesis of lumbar region (ICD-10 - M43.16) 02/17/2024 DDD (degenerative di sc disease), lumbar (ICD-10 - M51.36) 04/21/2024 Spondylolisthesis of lumbar region (ICD-10 - M43.16) 02/03/2024 DDD (degenerative di sc disease), lumbar (ICD-10 - M51.36) 03/15/2024 Spondylolisthesis of lumbar region (ICD-10 - M43.16) 05/29/2024 Lumbar radiculopathy (ICD-10 - M54.16) 07/07/2024 Lumbar radiculopathy (ICD-10 - M54.16) 07/24/2024 Lumbar stenosis with neurogenic claudication (ICD-10 - M48.062) 02/17/2024 Facet degeneration o f lumbar region (ICD-10 - M47.816) 04/21/2024 Lumbar stenosis with neurogenic claudication (ICD-10 - M48.062) 02/03/2024 Facet degeneration o f lumbar region (ICD-10 - M47.816) 03/15/2024 Lumbar discogenic ba ck pain only (ICD-10 - M51.360) 05/29/2024 Other low back pain (ICD-10 - M54.59) 07/07/2024 Disc Degeneration, Lumbar Region with Leg Pain (ICD-10 - M51.361) 07/24/2024 Contusion of knee, l eft (ICD-10 - S80.02XA) 02/17/2024 Diabetes mellitus (ICD-10 - E11.9) 04/21/2024 Osseous and subluxat ion stenosis of intervertebral foramina of lumbar region (ICD-10 - M99.63) 02/03/2024 Diabetes mellitus (ICD-10 - E11.9) 03/15/2024 Diabetes mellitus (ICD-10 - E11.9) 05/29/2024 Spondylolisthesis of lumbar region (ICD-10 - M43.16) 07/07/2024 Lumbar stenosis with neurogenic claudication (ICD-10 - M48.062) 07/24/2024 Knee pain, left (ICD -10 - M25.562) 02/17/2024 Lumbar radiculopathy (ICD-10 - M54.16) 04/21/2024 Other low back pain (ICD-10 - M54.59) 02/03/2024 Obesity (ICD-10 - E66.9) 03/15/2024 Obesity (ICD-10 - E66.9) 05/29/2024 Disc Degeneration, Lumbar Region with Leg Pain (ICD-10 - M51.361) 07/07/2024 Spondylolisthesis of lumbar region (ICD-10 - M43.16) 07/24/2024 Right radial nerve p alsy (ICD-10 - G56.31) 02/17/2024 Obesity (ICD-10 - E66.9) 04/21/2024 Disc Degeneration, Lumbar Region with Leg Pain (ICD-10 - M51.361) 05/29/2024 Facet degeneration o f lumbar region (ICD-10 - M47.816) 07/07/2024 Facet degeneration o f lumbar region (ICD-10 - M47.816) 07/24/2024 Other low back pain (ICD-10 - M54.59) 04/21/2024 Facet degeneration o f lumbar region (ICD-10 - M47.816) 07/07/2024 Diabetes mellitus (ICD-10 - E11.9) 07/24/2024 Herniation of lumbar intervertebral disc with radiculopathy (ICD-10 - M51.16) PLAN OF TREATMENT Pending Test Test Name Order Date Electrocardiogram (EKG) 05/29/2024 CBC With Differential/Platelet PT AND PTT 05/29/2024 Chem-Comprehensive 05/29/2024 X ray : Chest 2 views, PA, Lateral 05/29 INR 05/29/2024 Next Appt Details Provider Name:Rubin Andersen ot, 09/18/2024 11:50:00 AM, [address], [address], [place], [address], Insurance Providers Payer Name Payer Address Payer Phone Subscriber Number Group Number Insured Name Patient Relationship to Insured Coverage Start Date Coverage End Date Nadeem [employer] [address] [place] [address] [id number] Annemarie Corbin Self - patient is the insured MEDICAL (GENERAL) HISTORY Medical History History ICD Code Migraines Hypertension Asthma Myocardial infarction Coronary artery disease Diabetes 10+ years Back pain Numbness in feet Arthritis in hips & knees Depression Anxiety Denies being hospitalized for psychiatri c condition Denies h/o drug/chemical dependency Surgical History Surgery Date(Month/Year) Tonsillectomy 1996 1999 & 2009 Left knee 2014 Endometrial ablation 2015 Tubal 2020 Lipoma removal 2021 D&C 2021 Gastric sleeve 2021 Cataract removal 2023 L5-S1 TLIF, L4-S1 LDL's 08/01/2024
== END 2024-08-21 10:41 | disposition home or self-care (01) ==
PROVIDERS: PCP Internal Medicine; Visit Provider Plastic Surgery
DX: S62.524A Nondisplaced fracture of distal phalanx of right thumb, initial encounter for closed fracture (principal); X58.XXXA Exposure to other specified factors, initial encounter
CPT/HCPCS: 73140

== ENCOUNTER 2024-09-11 10:30 | Outpatient (CLI) | payer BC, SELFPAY ==
--- NOTE | ~2024-09-11 | XR_ITS ---
XR finger 1st RT min 2V Ordering provider: Nani Dunne MD History: . S62.524A - Nondisplaced fracture of distal phalanx of rig... . Comparison: August 21, 2024 FINDINGS: BONES: Healing fracture at the base of the distal phalanx of the right thumb. JOINT SPACES: Osteoarthritic changes of the interphalangeal joint. SOFT TISSUES: Soft tissue swelling is seen in the right thumb. IMPRESSION: Healing fracture in the distal phalanx of the right thumb Reviewed, dictated and finalized at location A.
--- OUTSIDE RECORDS SUMMARY | 2024-09-11 12:06 | XMS_ITS | Clinical Summary ---
Author Organization [facility] [employer] Address [address] [place] [address] Care Team Providers Care Driver Education Instructor Name Role Phone Maura Zuñiga DO Primary Care Provider [phone] Source Comments [facility] [employer],non-owned Affiliates and Associated Physician Practices is amultiple site organization consisting of ambulatory clinics and hospital sitesin [place], [place], [place]. This disclosure is being madepursuant to the Care Everywhere program and may not contain all information available regarding this patient. Last updated 18.[facility] [employer] Allergies Active Allergy Reactions Criticality Noted Date [...] VACCINE (1 - 2023-2 5 season) 2024 DEPRESSION SCREENING 06/07/2024 INFLUENZA VACCINE (Season Ended) 2025 ZOSTER VACCINE (1 of 2) 2029 HIB [...] 4:25 AM 10/30/2009 1:38 AM Care Teams Driver Education Instructor Relationship Specialty Start Date End Date Maura Zuñiga DO [address] [place] [address] PCP - General 11/01/09
--- OUTSIDE RECORDS SUMMARY | 2024-09-11 12:07 | XMS_ITS ---
Author Organization [facility] Address [address] [place] [address] Care Team Providers Care Admitting Officer Name Role Phone Jayne Llanos Primary Care Provider Allergies Allergen (clinical drug ingredient) Drug/Non Drug [...] review and pick correct strength-formula tion from Zeusan options. If intended option is not shown, [...] review and pick correct strength-formula tion from Avvospan options. If intended option is not shown, discontinue and re-order from Quick Search* Active Aspirin 81 MG 1 tab(s) orally once a day Active PROzac *Please review and pick correct strength-formula tion from Tapastreet options. If intended option is not shown, discontinue and re-order from Quick Search* Active HumaLOG 100 UNIT/ML 3 units with meals Injection three times daily *Please review and pick correct strength-formula tion from Zeusan options. If intended option is not shown, discontinue and re-order from Quick Search* Active Lipitor 80 MG 1 tab(s) orally once a day Active Losartan Potassium 100 MG 1 tablet Orally Once a day *Please review and pick correct strength-formula tion from Zeusan options. If intended option is not shown, discontinue and re-order from Quick Search* Active Cymbalta 60 MG 1 cap(s) orally once a day Active Jardiance 25 MG 1 tab(s) orally once a day (in the morning) Active Spironolactone 25 MG 1 tablet Orally once daily *Please review and pick correct strength-formula tion from Tapastreet options. If intended option is not shown, [...] Status W/U Status Risk Notes Problem Polyarthritis (621116281) Polyarthritis, unspecified (M13.0) Active confirmed Problem Long-term current use of insulin (894742802) intermediate card tender (current) use of insulin (Z79.4) Active confirmed Vital Signs Blood pressure systolic 174 mm Hg 05/19/20 24 Blood pressure diastolic 116 mm Hg 024 Heart Rate 112 /min 05/19/2024 Height 66 in 05/19/2024 Weight 225.0 lbs 05/19/2024 BMI 36.31 kg/m2 05/19/2024 Encounters Encounter Location Date Provider Diagnosis [facility], [facility] - Jayne Llanos [address] [place] [address] 05/19/2024 Jayne Llanos Type 2 diabetes josemanuel itus with hyperglycemia E11.65 ; Hyperlipidemia, unspecified E78.5 ; Other fatigue R53.83 ; Polyarthritis, unspecified M13.0 ; intermediate card tender (current) use of insulin Z79.4 ; Obesity, unspecified E66.9 and Dietary counseling and surveillance Z71.3 Assessments Encounter Date Diagnosis (ICD Code) Assessment Notes Treatment Notes Treatment Clinical Notes Section Notes 05/19/2024 Type 2 diabetes mellitus with hyperglycemia (ICD-10 - E11.65) 05/19/2024 Hyperlipidemia, unspecified (ICD-10 - E78.5) 05/19/2024 Other fatigue (ICD-10 - R53.83) 05/19/2024 Polyarthritis, unspecified (ICD-10 - M13.0) 05/19/2024 snf (current) use of insulin (ICD-10 - Z79.4) 05/19/2024 Obesity, unspecified (ICD-10 - E66.9) 05/19/2024 Dietary counseling and surveillance (ICD-10 - Z71.3) 05/19/2024 Other Assessment and Plan: 1. Hypertension- Patient reports high blood pressure readings at home, and blood pressure was high during the visit. The patient is currently on blood pressure medication and is being monitored by a box toe flanger stitchdowns.Plan: - Continue current blood pressure medication - Encourage patient to monitor blood pressure at home regularly and report any significant changes to the box toe flanger stitchdowns - Reinforce the importance of medication adherence [...] to discuss high estrogen levels with their tax evaluator and consider an ultrasound - Monitor for any symptoms related to high estrogen levels 5. Proteinuria- Patient is dumping a significant amount of protein in the urine but has normal kidney function (creatinine 0.99, filtration rate 72).Plan: - Continue monitoring kidney function - Consider referral to a lead retail sales associate if proteinuria worsens or kidney function declines 6. Constipation- Patient reports chronic constipation and a history of a slipped disc and pinched nerve.Plan: - Recommend fhgt-gqa-osomoyh stool softeners or laxatives as needed - Encourage patient to maintain a high-fiber diet and stay hydrated - Follow up on the issue during the next visit 7. Possible autoimmune disease- Some lab results, such as neutrophil count, were abnormal, suggesting a possible autoimmune disease.Plan: - Order CHANDNI and rheumatoid factor tests for the next visit - Consider referral to a custom stock maker if results are positive or symptoms worsen [...] examination and/or evaluation, counseling and educating the patient/family/daycare manager, ordering medications, tests, or procedures, referring and communicating with other health career coordinator, documenting clinical information in the electronic or other health record, independently interpreting results and communicating results to the patient/family/daycare manager and care coordinating patient plan. Patient alert [...] medication and is being monitored by a box toe flanger stitchdowns.Plan: - Continue current blood pressure medication - Encourage patient to monitor blood pressure at home regularly and report any significant changes to the box toe flanger stitchdowns - Reinforce the importance of medication adherence [...] to discuss high estrogen levels with their tax evaluator and consider an ultrasound - Monitor for any symptoms related to high estrogen levels 5. Proteinuria- Patient is dumping a significant amount of protein in the urine but has normal kidney function (creatinine 0.99, filtration rate 72).Plan: - Continue monitoring kidney function - Consider referral to a lead retail sales associate if proteinuria worsens or kidney function declines 6. Constipation- Patient reports chronic constipation and a history of a slipped disc and pinched nerve.Plan: - Recommend wgux-acj-jxudpjh stool softeners or laxatives as needed - Encourage patient to maintain a high-fiber diet and stay hydrated - Follow up on the issue during the next visit 7. Possible autoimmune disease- Some lab results, such as neutrophil count, were abnormal, suggesting a possible autoimmune disease.Plan: - Order CHANDNI and rheumatoid factor tests for the next visit - Consider referral to a custom stock maker if results are positive or symptoms worsen [...] procedures, referring and communicating with other health career coordinator, documenting clinical information in the electronic or [...] * Rory CORBINaDOB: 0 (43 yo F)Acc No.[id number]:05/19/2024 Progress Notes Patient: Annemarie MATUTE Provider: Amy Llanos MD :1980 A ge:43 Y S ex:Female Date:05/19/2024 Address:[address] [facility] Subjective: * Chief Complaints: * 1 . [...] and heavy bleeding. She recently saw her tax evaluator, who performed a pelvic check and found [...] *Please review and pick correct strength-formulation from Tapastreet options. If intended option is not shown, [...] *Please review and pick correct strength-formulation from Tapastreet options. If intended option is not shown, discontinue and re-order from Quick Search*, Taking Jardiance(Empagliflozin) 25 MG Tablet 1 tab(s) orally once a day (in the morning) , Taking Cymbalta(DULoxetine HCl) 60 MG Capsule Delayed Release Particles 1 cap(s) orally once a day , Taking PROzac , Notes to Pharmacist: *Please review and pick correct strength-formulation from Avvospan options. If intended option is not shown, discontinue and re-order from Quick Search*, Taking Aspirin 81 MG Tablet Delayed Release 1 tab(s) orally once a day , Taking Losartan Potassium 100 MG Tablet 1 tablet Orally Once a day , Notes to Pharmacist: *Please review and pick correct strength-formulation from Avvospan options. If intended option is not shown, discontinue and re-order from Quick Search*, Taking Lipitor(Atorvastatin Calcium) 80 MG Tablet 1 tab(s) orally once a day , Taking HumaLOG(Insulin Lispro) 100 UNIT/ML Solution 3 units with meals Injection three times daily , Notes to Pharmacist: *Please review and pick correct strength-formulation from Avvospan options. If intended option is not shown, discontinue and re-order from Quick Search*, Taking Basaglar KwikPen(Insulin Glargine) 100 UNIT/ML Solution Pen-injector 10 units every morning and 6 units at night Subcutaneous , Notes to Pharmacist: *Please review and pick correct strength-formulation from Zeusan options. If intended option is not shown, [...] 31.1 - % ABSOLUTE NEUTROPHILS 1151 L 7521-1384 - cells/u L LYMPHOCYTES 52.4 - % ABSOLUTE LYMPHOCYTES [phone] - cells/uL MONOCYTES 10.0 - % ABSOLUTE [...] FOLATE, SERUM 15.0 - ng/mL VITAMIN B12 [phone] - pg/mL L ab:LH (Order Date - [...] medication and is being monitored by a box toe flanger stitchdowns.Plan: - Continue current blood pressure medication - Encourage patient to monitor blood pressure at home regularly and report any significant changes to the box toe flanger stitchdowns - Reinforce the importance of medication adherence [...] to discuss high estrogen levels with their tax evaluator and consider an ultrasound - Monitor for any symptoms related to high estrogen levels 5. Proteinuria- Patient is dumping a significant amount of protein in the urine but has normal kidney function (creatinine 0.99, filtration rate 72).Plan: - Continue monitoring kidney function - Consider referral to a lead retail sales associate if proteinuria worsens or kidney function declines 6. Constipation- Patient reports chronic constipation and a history of a slipped disc and pinched nerve.Plan: - Recommend ayed-bxu-fpdygtl stool softeners or laxatives as needed - Encourage patient to maintain a high-fiber diet and stay hydrated - Follow up on the issue during the next visit 7. Possible autoimmune disease- Some lab results, such as neutrophil count, were abnormal, suggesting a possible autoimmune disease.Plan: - Order CHANDNI and rheumatoid factor tests for the next visit - Consider referral to a custom stock maker if results are positive or symptoms worsen [...] procedures, referring and communicating with other health career coordinator, documenting clinical information in the electronic or [...] Procedure Codes: 9 5250 GLUCOSE MONITORING, CONT, 95136 P/M PHYSICAL PLANT MANAGER, INDIV 15 MIN, G2211 Complex e/m visit add on * Follow Up: 2 Months (Reason: labwork) * Billing Information: * Visit Code: 27510 Office Visit, Est Pt., Level 4. * Procedure Codes: 61341 GLUCOSE MONITORING, CONT. 99406 P/M PHYSICAL PLANT MANAGER, INDIV 15 MIN. G2211 Complex e/m visit add on. * O MAKER Sign off status: Completed true * Provider: Amy Llanos MD Date: 1 07/20/2023 Generated for Printi ng/Faxing/eTransmitting on: 0 09/11/2024 12:06 PM CDT History and Physical Notes * [...] and heavy bleeding. She recently saw her tax evaluator, who performed a pelvic check and found [...]
--- OUTSIDE RECORDS SUMMARY | 2024-09-11 12:07 | XMS_ITS ---
Author Organization [facility], Address [address] [facility] [address] [place] [address] Care Team Providers Care Lead Based Paint Technician Name Role Phone Simón Mcdonough MD Primary Care Provider Unavail Rubin London Unavailable [phone] Vipul Davis Unavailable Unavailable REASON FOR REFERRAL Reason eval and treat, exer cise, modalities per therapist's discretion; HEP DIAGNOSES: s/p L4-S1 LDL's, L5-S1 TLIF 3 visits Referral Organization [facility] Referring Provider First Name Rubin Referring Provider Last Name Walter Referring Provider Speciality Orthopedic Surgery Referred Provider Specialty Physical The jonathan Referral Priority Routine REASON FOR VISIT Therapy Encounters Encounter Location Date Provider Diagnosis [facility], [address] [facility] [address] [place] [address] 09/08/2024 Rubin Watson PLAN OF TREATMENT Referrals Referral Date Details eval and treat, exer cise, modalities per therapist's discretion; HEP DIAGNOSES: s/p L4-S1 LDL's, L5-S1 TLIF 3 visits Next Appt Details Provider Name:Rubin Andersen ot, 09/18/2024 11:50:00 AM, [address], [address], [place], [address], Consultation Request Notes Referral Date Referring Provider Referred Provider Not es 09/08/2024 Rubin Watson , eval and keshawn at, exercise, modalities per therapist's discretion; HEP DIAGNOSES: s/p L4-S1 LDL's, L5-S1 TLIF 3 visits
--- OUTSIDE RECORDS SUMMARY | 2024-09-11 12:07 | XMS_ITS | Clinical Summary ---
Author Organization [facility] Facility Address [address] [address] Care Team Providers Care Pediatric Critical Care Nurse Name Role Phone Jayne Llanos MD Primary Care Provider [phone] Social History Tobacco Use Types Packs/Day Years [...] Diabetes: Visual Foot Exam 06/05/2021 Influenza Vaccine (Season Ended) 2025 03/26/20 21, 05/06/2019 Insurance [facility] Care Teams Pediatric Critical Care Nurse Relationship Specialty Start Date End Date Jayne Llanos MD [address] [place] [address] PCP - General Endocrinology 08/04/21
--- OUTSIDE RECORDS SUMMARY | 2024-09-11 12:07 | XMS_ITS | Clinical Summary ---
Author Organization [facility] Address [facility] [place] [address] Care Team Providers Care Piccolo Mechanic Name Role Phone Simón Mcdonough MD Primary Care Provider [phone] Allergies Active Allergy Reactions Criticality Noted Date [...] Date Diagnosed Date Neuropathy 03/30/2024 Diabetes mellitus ([facility]) 10/20/2023 Hypertension complicating ([facility]) TIA (transient ischemic attack) 07/19/2023 Hypertension 07/19/2023 Hypertensive urgency 07/15/2023 Anxiety and depression 11/24/2021 Morbid obesity with body mass index of 40.0-49.9 11/24/2021 TANNA (obstructive sleep apnea) 11/24/2021 Other hyperlipidemia 11/24/2021 Resolved Problems Problem Noted Date Diagnosed Date Resolved Date CVA (cerebral vascular accid ent) ([facility]) 07/14/2023 07/15/2023 Encounters Date Type Department Care Team Description 06/30/2024 Telephone [facility] [address] Cyndi Bearden MD Surgical Clearance from Last [...] drink = 0.6 oz pur e alcohol) [facility] Utilities Answer Date Recorded In the past 12 months has e [employer], gas, oil, or water [employer] threatened to shut off services in your [...] week 07/15/2023 How often do you attend [facility] or zoroastrian services? More than 4 times per year 07/15/2023 Do you belong to any clubs o r organizations such as presybeterian groups, unions, fraternal or athletic groups, or [...] Recorded Patient Health Questionnaire-2 Score 0 07/15/2023 [facility] [place] [facility] - Occupational Stress [...] 36.3 C (97.3 F) 07/16/2023 5:40 AM DOOR ATTENDANT Respiratory Rate 16 07/16/2023 8:35 AM DOOR ATTENDANT Oxygen Saturation 97% 04/03/2024 10:03 AM CDT Inhaled Oxygen Concentration - - Weight 102.1 kg (225 lb) 04/03/2024 10:03 AM CDT Height 167.6 cm (5' 6 ) 04/03/2024 10:03 AM CDT Body Mass Index 36.32 04/03/2024 10:03 AM CDT Plan of Treatment Upcoming Encounters Date Type Department Care Team (Late st Contact Info) Description 10/02/2024 10:30 AM CDT Office Visit [facility] [address] [place] [address] Cyndi Bearden MD [facility] [address] [place], [place] [id number] Health Maintenance Due Date Last Done Comments [...] - 2023-2 5 season) 2024 05/15/2021, 09/10/2020 Hemoglobin A1C 05/25/2024 02/24/2024, 07/14/2023 Lipid Panel 02/23/2025 02/24/2024, 07/14/2023 HPV Vaccines Aged Out No longer eligi ble based on patient's age to complete this topic Meningococcal B Vaccine Aged Out No l onger eligible based on patient's age to complete this topic Meningococcal Vaccine Aged Out No gemraine aretha eligible based on patient's age to complete this topic RSV Immunizations Under 20 Months Aged Out No longer eligible b ased on patient's age to complete this topic Goals Goal Patient Goal Type Associated Problems Recent Progress Patient-Stated? Author Patient will return to prior living situation and remain independent in ADLs upon discharge from hospital Lifestyle No Jayla Garcia, PROCESS MOLD TECHNICIAN Procedures Procedure Name Priority Date/Time Associated Diagnosis [...] 10:44 PM 07/16/2023 1:11 PM Care Teams Piccolo Mechanic Relationship Specialty Start Date End Date Simón Mcdonough MD PCP - General 11/15/14
--- OUTSIDE RECORDS SUMMARY | 2024-09-11 12:07 | XMS_ITS | Clinical Summary ---
Author Organization [facility] Address [address] [address] Phone Care Team Providers Care Gripper Attacher Name Role Phone Unavailable Primary Care Provider [...] 1 Tablet by mouth daily. Active cloNIDine ([id number]-[id number]-7 ) 0.3 mg/24 hr patch Apply 1 [...] of 3 - 19+ 3-dose series) 1998 HPV/Cotest (21-29) 2000 PAP SMEAR 2000 CERVICAL CANCER SCREENING 2009 HPV/Cotest (30-65) 2009 PAP SMEAR 2009 BREAST CANCER SCREENING 2019 DTAP/TDAP/TD VACCINES [...] this topic Medical Devices Implanted Type Area Associate Professor Of Library Science Device Identifier Shelf Expiration Date Model / Serial / Lot Seamguard Endogia 60 Blk [id number] - [id number] Implanted:Qty : 2 on 11/24/2021 by Jose Cruz Jean-Baptiste MD at [facility] [employer] N/A: Stom[employer] 07/08/2024 [id number] / / [id number] Seamguard Endogia 60 Prpl [id number] - [id number] Implanted:Qty : 3 on 11/24/2021 by Jose Cruz Jean-Baptiste MD at [facility] [employer] N/A: Stomach [employer] 06/25/2024 [id number] / / [id number] Insurance [facility] [employer] Commercial Advance Directives For more information, please contact: [phone] * Full Code (Latest Code Status on File) Date Activated Date Inactivated Comments 11/24/2021 9:56 AM 11/25/2021 3:28 PM * Full Code Date Activated Date Inactivated Comments 11/24/2021 8:17 AM 11/24/2021 9:56 AM * Full Code Date Activated Date Inactivated Comments 02/07/2021 9:01 AM 02/07/2021 1:49 PM
--- OUTSIDE RECORDS SUMMARY | 2024-09-11 12:07 | XMS_ITS | Patient Health Record ---
Author Organization [facility], Address [address] [place] [address] Care Team Providers Care Cannery Worker Name Role Phone Simón Mcdonough MD Primary Care Provider Unavail able Rubin Watson Unavailable [phone] Vipul Davis Unavailable Unavailable Yulissa Mazariegos Unavailable [phone] ALLERGIES Allergen (clinical drug ingredient) Drug/Non Drug Allergy documented on EMR Reaction Allergy Type Onset Date Status angiotensin-converting enzyme inhibitor (FN) ARCELIA Inhibitors Unknown Drug Allergy Acti ve irbesartan Irbesartan Unknown Drug Allergy Activ e sumatriptan Imitrex Unknown Drug Allergy Activ e nebivolol Bystolic Unknown Drug Allergy Active RESULTS [...] ray : Knee 3 views L, AP,L Luciana mosleye Reviewed date:07/24/2024 02:41:00 PM Interpretation:207 Performing Lab: [...] treat. Blad navid issues Referral Organization [facility], Referring Provider First Name Rubin Referring Provider Last Name [facility] Referring Provider Speciality Orthopedic Surgery Referred Provider Shama Patel Referred Provider Specialty Urology Referral Priority Routine Reason DIAGNOSES: s/p L4-S1 LDL's, L5-S1 TLIF 3 times per week for 3 weeks eval and treat, exercise, modalities per therapist's discretion; HEP [facility], Referring Provider First Name Rubin Referring Provider Last Name Walter Referring Provider [facility] Orthopedic Surgery Referred Provider Specialty Physical The rapy Referral Priority Routine Reason eval and treat, exer cise, modalities per therapist's discretion; HEP DIAGNOSES: s/p L4-S1 LDL's, L5-S1 TLIF 3 visits Referral Organization [facility], Referring Provider First Name Rubin Referring Provider Last Name [facility] Referring Provider [facility] Orthopedic Surgery Referred Provider Specialty Physical The rapy Referral Priority Routine MEDICATIONS Medication SIG (Take, Route, Frequency, Duration) Notes Start Date End Date Status Tylenol Active ALPRAZolam Active HumaLOG Active Meloxicam Active ASA 81 Mg Active Losartan Potassium A ctive metFORMIN HCl Not-Ta priscila Spironolactone Activ e tiZANidine HCl 4 MG [...] Notes Problem 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 confirmed Spondylolysis (076770789) Problem Spondylolisthesis of lumbar region (M43.16) Active confirmed Acquired spondylolisthesis (832238528) Problem DDD (degenerative disc disease), lumbar (M51.36) Active confirmed Degenerative disc disease (46277532) Problem Facet degeneration of lumbar region (M47.816) Active confirmed Lumbosacral spondylosis without myelopathy (85891720) Problem Diabetes mellitus (E11.9) Active confirmed Diabetes mellit us (69332248) Problem Obesity (E66.9) Active confirmed Obesit y (291038061) Problem Osteoporosis (M81.0) Active confirmed Osteoporosis (68466231) Problem Ataxia (R27.0) Active confirmed Ataxia (94013996) Problem Right radial nerve palsy (G56.31) Active confirmed Right radial nerve palsy (49688381511290935) Problem Spondylolisthesis, lumbosacral region (M43.17) Active confirmed Acquired spondylolisthesis (484919129) Problem Displacement of intervertebral disc of lumbar region (M51.26) Active confirmed Displacement of lumbar intervertebral disc without myelopathy (13041670) VITAL SIGNS Temperature 98.0 degrees Fahrenheit 08/14/2024 Height 66 in 08/14/2024 Weight 210 lbs 08/14/2024 BMI 33.89 kg/m2 08/14/2024 PROCEDURES Procedure Date Ordered Date Performed Result Body Sit e Lumbar Selective Nerve Root Injection 02/03/2024 02/17/2024 [facility] [place] Lumbar Selective Nerve Root Injection 05/29/2024 06/01/2024 approved lumbar fusion 05/29/2024 08/01/2024 [facility] [place] -[place] Encounters Encounter Location Date Provider Diagnosis [facility] [address] [facility] [address] [place] [address] 02/03/2024 Rubin Watson Lumbar radicular janis n M54.16 ; Spondylolisthesis of lumbar region M43.16 ; DDD (degenerative disc disease), lumbar M51.36 ; Facet degeneration of lumbar region M47.816 ; Diabetes mellitus E11.9 and Obesity E66.9 [facility] [address] [place] [address] 08/14/2024 Rubin Watson [facility] [address] [address] 08/07/2024 Rubin Watson [facility] [address] [address] 03/15/2024 Rubin Watson Lumbar radiculopathy M54.16 ; Facet degeneration of lumbar region M47.816 ; Spondylolisthesis of lumbar region M43.16 ; Lumbar discogenic back pain only M51.360 ; Diabetes mellitus E11.9 and Obesity E66.9 [facility] [address] [facility] [address] [place] [address] 05/29/2024 Rubin Watson Lumbar stenosis with neurogenic claudication M48.062 ; Lumbar radiculopathy M54.16 ; Other low back pain M54.59 ; Spondylolisthesis of lumbar region M43.16 ; Disc Degeneration, Lumbar Region with Leg Pain M51.361 and Facet degeneration of lumbar region M47.816 [facility] [address] [address] 07/07/2024 Rubin Watson Cervical radiculopat hy M54.12 ; Arm weakness R29.898 ; Lumbar radiculopathy M54.16 ; Disc Degeneration, Lumbar Region with Leg Pain M51.361 ; Lumbar stenosis with neurogenic claudication M48.062 ; Spondylolisthesis of lumbar region M43.16 ; Facet degeneration of lumbar region M47.816 and Diabetes mellitus E11.9 [facility] [address] [facility] [address] [place] [address] 07/24/2024 Rubin Watson Ataxia R27.0 ; Spondylolisthesis of lumbar region M43.16 ; Lumbar stenosis with neurogenic claudication M48.062 ; Contusion of knee, left S80.02XA ; Knee pain, left M25.562 ; Right radial nerve palsy G56.31 ; Other low back pain M54.59 and Herniation of lumbar intervertebral disc with radiculopathy M51.16 [facility] [address] [place] [address] 08/01/2024 Rubin Watson [facility] [address] [place] [address] 08/01/2024 Yulissa Mazariegos [facility] [address] [address] 02/17/2024 Rubin Watson [facility] [address] [address] 03/30/2024 Rubin Watson [facility] [address] [address] 06/02/2024 Rubin Watson [facility] [address] [address] 06/19/2024 Rubin Watson [facility] [address] [address] 2024 Rubin Watson [facility] [address] [address] 07/18/2024 Rubin Watson [facility] [address] [address] 07/25/2024 Rubin Watson [facility] [address] [address] 07/25/2024 Rubin Watson [facility] [address] [address] 07/28/2024 Rubin Watson [facility] [address] [address] 07/31/2024 Rubin Watson [facility], [address] [address] 08/10/2024 Rubin Watson [facility], [address] [address] 09/08/2024 Rubin Watson [facility], [address] [address] 02/17/2024 Rubin Watson Spondylolisthesis of lumbar region M43.16 ; DDD (degenerative disc disease), lumbar M51.36 ; Facet degeneration of lumbar region M47.816 ; Diabetes mellitus E11.9 ; Lumbar radiculopathy M54.16 and Obesity E66.9 [facility], [address] [address] 02/16/2024 Rubin Watson [facility], [address] [address] 04/21/2024 Rubin Watson Spondylolisthesis of lumbar region [...] Provider Name:Rubin Andersen ot, 09/18/2024 11:50:00 AM, [address], [facility] [address], [place], [address], Insurance Providers Payer Name Payer Address Payer Phone Subscriber Number Group Number Insured Name Patient Relationship to Insured Coverage Start Date Coverage End Date Nadeem GARTH [place] [address] Health Claims Dept [place] [id number] Annemarie Corbin Self - patient is the [...]
--- OUTSIDE RECORDS SUMMARY | 2024-09-11 12:07 | XMS_ITS ---
Author Organization [facility] Address [address] [place] [address] Care Team Providers Care Collections Attorney Name Role Phone Simón Mcdonough MD Primary Care Provider Unavail able Rubin Watson Unavailable [phone] Vipul Davis Unavailable Unavailable ALLERGIES Allergen (clinical [...] therapist's discretion; HEP Referral [facility] Referring Provider First Name Rubin Referring Provider Last Name Walter Referring Provider Speciality Orthopedic Surgery Referred Provider Specialty Physical The rapy Referral Priority Routine REASON FOR VISIT postop wound check MEDICATIONS Medication SIG (Take, Route, [...] 300 Mg BID Active metFORMIN HCl Not-Ta priscila VITAL SIGNS BMI 33.89 kg/m2 08/14/2024 Height 66 in 08/14/2024 Temperature 98.0 degrees Fahrenheit 08/15/19 25 Weight 210 lbs 08/14/2024 Encounters Encounter Location Date Provider Diagnosis [facility] [address] [place] [address] 08/14/2024 Rubin Watson PLAN OF TREATMENT Medication [...] Provider Name:Rubin Andersen ot, 09/18/2024 11:50:00 AM, [address], [address], [place], [address], Consultation Request Notes Referral Date Referring Provider Referred Provider Not es 08/14/2024 Rubin Watson , DIAGNOSES: s /p L4-S1 LDL's, L5-S1 TLIF 3 times per week for 3 weeks eval and treat, exercise, modalities per therapist's discretion; HEP
--- OUTSIDE RECORDS SUMMARY | 2024-09-11 12:07 | XMS_ITS ---
Author Organization [facility] Address [address] [facility] [address] [place] [address] Care Team Providers Care Drug Coordinator Name Role Phone Simón Mcdonough MD Primary Care Provider Unavail Rubin London Unavailable [phone] Vipul Davis Unavailable Unavailable REASON FOR VISIT [...] [facility] [address] [address] 08/10/2024 Rubin Watson PLAN OF TREATMENT Medication [...] Provider Name:Rubin Andersen ot, 09/18/2024 11:50:00 AM, [address], [facility] [address], [place], [address],
--- OUTSIDE RECORDS SUMMARY | 2024-09-11 12:07 | XMS_ITS | Continuity of Care Document ---
Author Organization [employer] Address [address] [place] [address] Phone Care Team Providers Care Manager City Name Role Phone Vipul Santo MD Unavailable [...] Diagnoses Date Provider Providers Copied on Encounter [facility], [address], [place], [place], [address], [place] tel:[phone] [facility] No Information Hansa Matthew. [address], [place], [place], [address], [place]. tel:[phone] Referring Provider: Rubin Watson DO, [address], [place], [address]. tel:[phone] [facility], [address], [place], [place], [address], tel:[phone] [facility] No Information Tiffanie Sharma. [address], [place], [place], [address], . tel:[phone] Referring Provider: Rubin Watson DO, [address], [place], [address]. tel:[phone] Family History Family Member Type Diagnosis Age At Onset No Information Payers Payer name Insurance type Covered constitution party ID Authorshabnam pugh(s) [facility] ACCESS [id number] Social History Type Description Quantity Date Captured [...]
--- OUTSIDE RECORDS SUMMARY | 2024-09-11 12:07 | XMS_ITS | Encounter Summary ---
Author Organization [facility] Address [facility] [place] [address] Care Team Providers Care Game Producer Name Role Phone Simón Mcdonough MD Primary Care Provider [phone] Encounter Details Date Type Department Care Team (Late st Contact Info) Description 10/26/2023 Abstract [facility] [address] Colin Lu MA Social History Tobacco Use Types Packs/Day Years Used Date Smoking Tobacco: Former Cigarettes Q uit: 07/14/2023 Smokeless Tobacco: Never Comments:Was smoking 2-3 cig arettes daily Alcohol Use Standard Drinks/Week Comments Never 0 (1 standard drink = 0.6 oz pur e alcohol) [facility] Utilities Answer Date Recorded In the [...] often do you attend chur ch or spiritism services? More than 4 times per year 07/15/2023 Do you belong to any clubs o r organizations such as christian groups, unions, fraternal or athletic groups, or [...] Recorded Patient Health Questionnaire-2 Score 0 07/15/2023 [facility] - Occupational Stress Questionnaire Answer Date [...] place to sleep or slept in a prison (including now)? No 07/15/2023 Comments Unknown Sex [...] Date Author Status No 07/15/2023 12:05 PM [facility] Mela Yee R N Active documented in this encounter Plan of Treatment Upcoming Encounters Date Type Department Care Team (Late st Contact Info) Description 10/02/2024 10:30 AM CDT Office Visit [facility] [place] [address] Cyndi Bearden MD [facility] [address] [place] [address] documented as of this encounter Goals Goal Patient Goal Type Associated Problems Recent Progress Patient-Stated? Author Patient will return to prior living situation and remain independent in ADLs upon discharge from hospital Lifestyle No Jayla Garcia, PERSONAL PROTECTION SPECIALIST documented as of this encounter Procedures Procedure [...] Final Result * LIPID PANEL (02/24/2024) Pathologist [facility] CHOLESTEROL 161 TRIGLYCERIDES 80 HDL 72 LDL (CALCULATED) 73 NON HDL CHOLESTEROL 89 Default History Genericprovider LABORATORY Final Result * CBC, MANUAL DIFF (02/24/2024) Pathologist [facility] WBC 6.6 HGB 15.4 HCT 48.8 PLT 260 Default History Genericprovider LABORATORY Final Result * HEMOGLOBIN, GLYCOSYLATED (02/24/2024) Pathologist [facility] HGB A1C 11.5 % Default History Genericprovider LABORATORY Final Result * MAGNESIUM (02/24/2024) Pathologist [facility] MAGNESIUM 2.0 Default History Genericprovider LABORATORY Final Result * METANEPHRINES PLASMA (10/20/2023) [facility] [address] METANEPHRINE FREE S/P/B <25 <=57 NORMETANEPHRINE FREE S/P/B 31 <=148 TOTAL 31 <=205 10/20/2023 Default History Genericprovider LABORATORY Final Result documented in this encounter Visit Diagnoses Not on filedocumented in this encounter Care Teams Game Producer Relationship Specialty Start Date End Date Simón Mcdonough MD PCP - General 11/15/14 documented as of this encounter
--- OUTSIDE RECORDS SUMMARY | 2024-09-11 12:07 | XMS_ITS ---
Author Organization [facility] Address [address] [address] Care Team Providers Care Truck Driver Helper Name Role Phone Jayne Llanos Primary Care Provider REASON FOR VISIT 2 month f/u lino Encounters Encounter Location Date Provider Diagnosis [facility] - Jayne Llanos [address] [place] [address] 07/21/2024 Jayne Llanos Plan Of Treatment No Information Progress Notes * Rory CORBINSailajaB: 0 (44 yo F)Acc No.[id number]:07/21/2024 Progress Notes Patient: Annemarie MATUTE Provider: Amy Llanos MD :1980 A ge:44 Y S ex:Female Date:07/21/2024 Address:[address] [facility] Subjective: * Chief Complaints: * 1 . 2 month f/u lino. * Medical History: Objective: * Vitals: Assessment: Plan: * Treatment: * Billing Information: * Visit Code: * Procedure Codes: * Electronic signature of Ramos Llanos MD on 09/11/2024 at 12:07 PM CDT Sign off status: Pending * Provider: Amy Llanos MD Date: 07/21/2024 Generated for Ac ng/Deedee/eTransmitting on: 09/11/2024 12:07 PM CDT
--- OUTSIDE RECORDS SUMMARY | 2024-09-11 12:08 | XMS_ITS ---
Author Organization [employer] [facility] Address [address] [place] [address] Care Team Providers Care Belt Splicer Name Role Phone Jayne Llanos Primary Care Provider REASON FOR VISIT estradiol Encounters Encounter Location Date Provider Diagnosis [facility] - Jayne Lalnos [address] [place] [address] 05/24/2024 Jayne Llanos Plan Of Treatment No Information Progress Notes * Nanci CORBINB: 0 (43 yo F)Acc No.[id number]:05/24/2024 Patient: Annemarie MATUTE :1980 A ge:43 Y S ex:Female Address:[address] [place], [address] * true * Date: Generated for Printi ng/Faxing/eTransmitting on: 0 09/11/2024 12:08 PM CDT
--- OUTSIDE RECORDS SUMMARY | 2024-09-11 12:08 | XMS_ITS | Continuity of Care Document ---
Author Organization [facility] Address [address] [place] [address] [address] [place] [address] Phone Care Team Providers Care Licensed Marriage And Family Therapist Name Role Phone Rickey Mckinnon DO Unavailable Unavailable Advance Directives Directive Yes / No Effective Date File Name No Information Encounters Encounter Description Practice Location Reason(s) For Visit Diagnoses Date Provider Providers Copied on Encounter [facility], [address], [place], [place], [address], [place] tel:[phone] [facility] No Information Pratibha Bustos. [address] [place], [address], [place]. tel: [phone] Family History Family Member Type Diagnosis Age At Onset No Information Payers Payer name Insurance type Covered green party ID Authoriza tion(s) Medicaid [facility] [id number] Social History Type Description Quantity Date Captured [...]
== END 2024-09-11 10:31 | disposition home or self-care (01) ==
PROVIDERS: PCP Internal Medicine; Visit Provider Plastic Surgery
DX: S62.524D Nondisplaced fracture of distal phalanx of right thumb, subsequent encounter for fracture with routine healing (principal); X58.XXXD Exposure to other specified factors, subsequent encounter
CPT/HCPCS: 73140

== ENCOUNTER 2024-10-20 12:44 | Outpatient (CLI) | payer BC, SELFPAY ==
--- NOTE | ~2024-10-20 | MM_ITS ---
EXAMINATION: MM screening [facility] BI w tommy HISTORY: Screening TECHNIQUE: Craniocaudal and mediolateral oblique 3-D tomosynthesis images were obtained and synthetic 2-D images were generated. CAD analysis was submitted and interpreted. COMPARISON: 07/08/2023 and 10/02/2014 BREAST PARENCHYMAL COMPOSITION: Not dense: There are scattered areas of fibroglandular density. FINDINGS: There is no evidence of suspicious mass, calcification, or architectural distortion to sugg est malignancy in either breast. There has been no suspicious interval change. IMPRESSION: 1. No mammographic evidence of malignancy. 2. Recommend routine screening mammography in one year. BI-RADS Category 1: Negative Reviewed, dictated and finalized at location B.
== END 2024-10-20 12:45 | disposition home or self-care (01) ==
LOC: MICIMG 10-21 12:46
PROVIDERS: PCP Internal Medicine; Visit Provider Obstetrics & Gynecology Gynecology
DX: Z12.31 Encounter for screening mammogram for malignant neoplasm of breast (principal)
CPT/HCPCS: 77063; 77067

== ENCOUNTER 2025-05-25 10:03 | Outpatient (CLI) | payer OTHER, SELFPAY ==
--- NOTE | ~2025-05-25 | CT_ITS ---
EXAMINATION: CT abdomen wo con DATE: 05/25/2025 10:19 INDICATION: Disorder of adrenal glands TECHNIQUE: Computed tomography (CT) of the abdomen was performed without intravenous contrast. Automated exposure control and iterative reconstruction technique were employed. The dose-length product was 577.27 mGy-cm. COMPARISON: 03/19/2012 FINDINGS: Lung bases are clear. Heart size is normal. No pericardial or pleural effusion. 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 Liver, gallbladder, spleen, pancreas, bilateral adrenal glands and kidneys are normal. The visualized bowels including the appendix are normal. No pathologically enlarged abdominal lymphadenopathy. Mild lumbar and lower thoracic spondylosis. L5 laminectomy with partially visualized combined instrumented L5-S1 anterior and posterior spinal fusion. IMPRESSION: 1. Normal bilateral adrenal glands. Reviewed, dictated and finalized at location A. CAL RECORDS TECH
== END 2025-05-25 10:04 | disposition home or self-care (01) ==
LOC: MICIMG 10:04
PROVIDERS: PCP Internal Medicine; Visit Provider Internal Medicine Endocrinology, Diabetes & Metabolism
DX: E27.9 Disorder of adrenal gland, unspecified (principal)
CPT/HCPCS: 74150